=== PATIENT | female | born 1940 | race Caucasian/White ===

== ENCOUNTER → 2017-12-07 08:52 | Outpatient (CLI) | payer MEDICARE, OTHER, SELFPAY ==
--- NOTE | 2017-12-07 09:02 | HPBI_ITS ---
MAMMOGRAPHY - BILATERAL SCREENING REASON FOR EXAM: Female, 77 years old. Routine annual screening examination. PERTINENT HISTORY: Non-contributory. TECHNIQUE: Digital bilateral breast nancy (3D mammographic acquisition) in the CC and MLO projections. 2-D mediolateral oblique (MLO) and craniocaudad (CC) views of both breasts were obtained. CAD: Full Field Digital Mammography with Computer Added Detection was performed. COMPARISON: Comparison is made with prior examination dated December 06, 2016 and November 11, 2015. FINDINGS: Breast Composition: The breasts are heterogeneously dense, which may obscure small masses. There are no dominant masses or suspicious calcifications. No other significant abnormalities are identified. There has been no significant change since the prior study. HPBI/SCREENING MAMM (CAD), BILAT IMPRESSION: Stable bilateral screening mammogram. Yearly follow-up mammogram recommended. (A) ASSESSMENT CATEGORY: BIRADS Category 1: Negative. A letter regarding these results will be sent to the patient by the facility within 30 days. Approximately 10% of breast cancers are not detected by mammography. A normal mammogram should not delay biopsy of a clinically suspicious abnormality. [id number] Electronically Signed: Keenan Perez MD at 10:12 EST Tel [phone], Service support ,
== END ==
PROVIDERS: Family Provider Nurse Practitioner; PCP Nurse Practitioner; Visit Provider Nurse Practitioner
DX: Z12.31 Encounter for screening mammogram for malignant neoplasm of breast (principal)
CPT/HCPCS: 77063; 77067

== ENCOUNTER → 2018-12-11 10:17 | Outpatient (CLI) | payer MEDICARE, OTHER, SELFPAY ==
--- NOTE | 2018-12-11 10:21 | BI_ITS ---
MAMMOGRAPHY - BILATERAL SCREENING REASON FOR EXAM: Female, 78 years old. Routine annual screening examination. PERTINENT HISTORY: Non-contributory. TECHNIQUE: Digital bilateral breast nancy (3D mammographic acquisition) in the CC and MLO projections. 2-D mediolateral oblique (MLO) and craniocaudad (CC) views of both breasts were obtained. CAD: Full Field Digital Mammography with Computer Added Detection was performed. COMPARISON: Comparison is made with prior examination dated December 07, 2017 and December 06, 2016. FINDINGS: Breast Composition: The breasts are heterogeneously dense, which may obscure small masses. There are no dominant masses or suspicious calcifications. Stable asymmetry of breast tissue where more breast tissue is seen in the upper outer quadrant of the left breast as compared to the right side. No other significant abnormalities are identified. There has been no significant change since the prior study. BI/SCREENING MAMM (CAD), BILAT IMPRESSION: Stable bilateral screening mammogram. Yearly follow-up mammogram recommended. (A) ASSESSMENT CATEGORY: BIRADS Category 2: Benign. A letter regarding these results will be sent to the patient by the facility within 30 days. Approximately 10% of breast cancers are not detected by mammography. A normal mammogram should not delay biopsy of a clinically suspicious abnormality. [id number] Electronically Signed: Keenan Perez, at 13:13 EDT , Service support ,
--- NOTE | 2018-12-11 10:24 | BD_ITS ---
STUDY: DUAL ENERGY X-RAY ABSORPTIOMETRY / DXA REASON FOR EXAM: Female, 78 years old. Early menopause. Loss of height. TECHNIQUE: Bone Mineral Density (BMD) measurements of lumbar spine and bilateral hips were obtained. COMPARISON: Comparison is made with prior study of December 06, 2016. FINDINGS: Lumbar Spine (L1-L4): g/cm2 (0.950) / T-score (-1.8) / Z-score (-0.1) Findings are suggestive of osteopenia with a moderate fracture risk. Left Femur Total: g/cm2 (0.924) / T-score (-0.7) / Z-score (1.1) Left Femoral Neck: g/cm2 (0.815) / T-score (-1.6) / Z-score (0.4) Right Femur Total: g/cm2 (0.890) / T-score (-0.9) / Z-score (0.9) Right Femoral Neck: g/cm2 (0.759) / T-score (-2.0) / Z-score (0.0) The T-Scores on the most recent prior examination were: Lumbar Spine (L1-L4): There has been improvement of bone density since the previous examination. Left Femur Total: which represents a worsening of 0.9%. Right Femur Total: which represents a worsening of 0.9%. BD/Dexa Bone Density Study IMPRESSION: The patient is considered osteopenic as outlined below according to World Allan Organization (WHO) criteria with a moderate fracture risk. There has been worsening of bone density since the previous examination. Reference Information: The T-score is the number of standard deviations above or below the standard which is normal for young adults at their peak bone mineral density. The World Health Organization (WHO) interprets the T-scores as follows: Above -1 Normal bone density Between -1 and -2.5 Osteopenia Equal to / or below -2.5 Osteoporosis As a practical clinical guideline, osteopenia may be graded as follows: Mild -1 through -1.5 Moderate -1.6 through -2.0 Severe -2.1 through -2.4 The Z-score is the number of standard deviations above or below age-matched controls. A Z-score of less than -1.5 would be considered abnormal. References: 1. NIH Osteoporosis and Related Bone Diseases http://www.osteo.org 2. International Society for Clinical Densitometry http://www.iscd.org 3. National Osteoporosis Foundation http://www.nof.org Electronically Signed: Keenan Perez, at 15:50 EDT , Service support ,
== END ==
PROVIDERS: Family Provider Nurse Practitioner; PCP Nurse Practitioner; Referring Provider Nurse Practitioner; Visit Provider Nurse Practitioner
DX: Z78.0 Asymptomatic menopausal state (principal); Z12.31 Encounter for screening mammogram for malignant neoplasm of breast
CPT/HCPCS: 77063; 77067; 77080

== ENCOUNTER 2019-01-16 09:58 | Day surgery (SDC) | payer MEDICARE, OTHER, SELFPAY ==
[2019-01-16 10:18] VITALS: BP 133/46; PULSE 59; RESP 18; TEMP 36.7; O2SAT 96; BMI 40.1
[2019-01-16 10:35] LABS: Bedside Glucose 185 mg/dL (70-110)
--- NOTE | 2019-01-16 10:42 | HP.PCM_ITS ---
Problem List (1) Personal history of colonic polyps Status: Acute History of Present Illness Date of Admission: 01/16/19 The patient is a 78 year old F who presents with a personal history of colonic polyps. Her last colonoscopy was by Dr. Walls over 5 years ago. Has had no co mplaints in her bowel department. Past Medical History Allergies No Known Allergies Allergy (Verified 01/16/19 10:09) Home Medications: Ambulatory Orders Medication Instructions Recorded Albuterol IH (ProAir) [Proair Hfa 1 - 2 puff INHALATION Q6H PRN PRN 01/14/19 (SP)Vent Pts] Atenolol [Tenormin (Beta Gavino)] 50 mg PO BID 01/14/19 Budesonide/Formoterol 160/4.5 2 puff INHALATION BID 01/14/19 [Symbicort 160/4.5 Mcg Inhaler (SP)] Hydrochlorothiazide 25 mg PO DAILY 01/14/19 Insulin Glargine [Lantus (BKC)] 20 units SC QHS 01/14/19 Insulin NPH Human Isophane 25 unit SQ BID 01/14/19 [Novolin N] Insulin Regular, Human [Novolin R] 20 unit SC BID 01/14/19 Levothyroxine [Synthroid] 150 mcg PO DAILY 01/14/19 Lisinopril [Zestril] 20 mg PO DAILY 01/14/19 Multivitamin with Minerals 1 each PO DAILY 01/14/19 [Multiple Vitamin] Simvastatin [Zocor] 40 mg PO QHS 01/14/19 Vit C/E/Zn/Coppr/Lutein/Zeaxan 1 each PO BID 01/14/19 [Preservision Areds 2 Softgel] Smoking Status: Former smoker Tobacco Use: Non-smoker Review of Systems Constitutional: Denies: Chills, Fever, Weight Change Cardiovascular: Denies: Chest Pain, Chest Pressure, Chest Tightness, Palpi tations Respiratory: Denies: Cough, Hemoptysis, Shortness of breath at rest, Shortness of breath upon exertion, Wheezing Gastrointestinal: Denies: Abdominal Pain, Constipation, Diarrhea, Hematemesis, Nausea, Melena, Vomiting VTE Information - Inpt Only VTE Present on Admission: No VTE Mechan Device Prophylaxis: None VTE Pharm Prophylaxis ordered?: No Reason prophylaxis not ordered:: Treatment Not Indicated Patient Problems: Active and Suspected Problems Personal history of colonic polyps (Acute) - Physical Exam General: Alert, Oriented x3 Lungs: Clear to auscultation Cardiovascular: Regular rate, Regular Rhythm, No murmurs Abdomen: Bowel Sounds Present, Soft, Non Tender, Non-Distended Vital Signs Temp Pulse Resp BP Pulse Ox 98.1 F 59 L 18 133/46 H 96 01/16/19 10:18 01/16/19 10:18 01/16/19 10:18 01/16/19 10:18 01/16/19 10:18 Oxygen Delivery Method Room Air Weight: 212 lb 11.937 oz Body Mass Index (BMI) 40.1 POC Glucose 01/16/19 10:18 POC Glucose 185 H Assessment/Plan All Active Problems Personal history of colonic polyps (Acute) Plan is to perform a colonoscopy. Risk of bleeding and possible injury to the colon were reviewed with the patient she agrees to proceed
[2019-01-16 11:10] VITALS: BP 131/53; BP 133/46; PULSE 65; RESP 16; TEMP 36.9; O2SAT 95
--- NOTE | 2019-01-16 11:10 | OP.ENDO_ITS ---
01/16/2019 Munira Fox, MARY ANN [address] [place] [address] Re : Colonoscopy procedure for Callie Mayorga Dear Ms. Fox This procedure was performed on Wednesday, January 16, 2019. My impressions and recommendations are as follows: Impressions : - Diverticulosis in the sigmoid colon and in the descending colon. There was no evidence of diverticular bleeding. - Non-bleeding internal hemorrhoids. - The examination was otherwise normal. - No specimens collected. Recommendations : - Discharge patient to home. - Resume previous diet. - Continue present medications. - Repeat colonoscopy in 10 years for screening purposes. - Return to primary care physician at appointment to be scheduled. My findings are described in the full procedure note, which is enclosed. If I can be of further assistance, please feel free to contact me at Doctor phone number(s): , Fax: [phone], Work: . Sincerely, MD Lopez Camilo MD 01/16/2019 11:10:07 AM This report has been signed electronically.
[2019-01-16 11:15] VITALS: BP 133/46; BP 133/56; PULSE 66; RESP 16; O2SAT 93
[2019-01-16 11:20] VITALS: BP 133/46; BP 135/55; PULSE 66; RESP 16; O2SAT 95
[2019-01-16 11:26] VITALS: BP 133/46; BP 138/62; PULSE 63; RESP 16; TEMP 36.4; O2SAT 96
[2019-01-16 11:40] VITALS: BP 133/46
== END 2019-01-16 11:48 | disposition home or self-care (01) ==
LOC: EN 09:59 → AC 10:00
PROVIDERS: Family Provider Nurse Practitioner; PCP Nurse Practitioner; Referring Provider Surgery; Visit Provider Surgery
PROC: 0DJD8ZZ Inspection of Lower Intestinal Tract, Via Natural or Artificial Opening Endoscopic (ICD-10-PCS; CPT 45378; principal; 2019-01-16 10:55)
DX: Z12.11 Encounter for screening for malignant neoplasm of colon (principal); K57.30 Diverticulosis of large intestine without perforation or abscess without bleeding; K64.8 Other hemorrhoids; Z86.010 Personal history of colon polyps; Z79.899 Other long term (current) drug therapy; Z87.891 Personal history of nicotine dependence; E78.00 Pure hypercholesterolemia, unspecified; E11.9 Type 2 diabetes mellitus without complications; Z79.4 Long term (current) use of insulin; E07.9 Disorder of thyroid, unspecified; I10 Essential (primary) hypertension; J44.9 Chronic obstructive pulmonary disease, unspecified
CPT/HCPCS: G0105; 82962; J7120

== ENCOUNTER → 2020-07-10 09:53 | Outpatient (CLI) | payer MEDICARE, OTHER, SELFPAY ==
--- NOTE | 2020-07-10 09:55 | BI_ITS ---
MAMMOGRAPHY - BILATERAL SCREENING REASON FOR EXAM: Female, 79 years old. Routine annual screening examination. PERTINENT HISTORY: NO FM HX , PAST BRUISE UIN LT BREAST 03/2020 FROM FALL, LT KERATOSIS MARKED TECHNIQUE: Digital bilateral breast herve (3D mammographic acquisition) in the CC and MLO projections. 2-D mediolateral oblique (MLO) and craniocaudad (CC) views of both breasts were obtained. CAD: Full Field Digital Mammography with Computer Added Detection was performed. COMPARISON: 12/11/2018 and 12/07/2017 FINDINGS: Breast Composition: The breasts are heterogeneously dense, which may obscure small masses. There are no dominant masses or suspicious calcifications. No other significant abnormalities are identified. BI/SCREEN MAMM (CAD) W/HERVE BILAT IMPRESSION: Stable bilateral screening mammogram. Yearly follow-up mammogram recommended. (A) ASSESSMENT CATEGORY: BIRADS Category 2: Benign. A letter regarding these results will be sent to the patient by the facility within 30 days. Approximately 10% of breast cancers are not detected by mammography. A normal mammogram should not delay biopsy of a clinically suspicious abnormality. [id number] Electronically Signed: Charla Green, at 15:07 EDT Tel , Service support ,
== END ==
PROVIDERS: PCP Nurse Practitioner; Referring Provider Nurse Practitioner; Visit Provider Nurse Practitioner
DX: Z12.31 Encounter for screening mammogram for malignant neoplasm of breast (principal)
CPT/HCPCS: 77063; 77067

== ENCOUNTER 2020-08-19 12:10 | Inpatient (IN) | payer MEDICARE, OTHER, SELFPAY ==
[2020-08-19] VITALS (11 sets, daily range): BP systolic 121–149; BP diastolic 51–93; PULSE 60–90; RESP 18–25; TEMP 36.7–37.3; O2SAT 91–98; BMI 37.8; BMI 41.9
--- NOTE | 2020-08-19 12:35 | ED.VIS.GEN ---
History of Present Illness Chief Complaint: Nausea/Vomiting/Diarrhea Informant: Patient Narrative: Patient is a 80-year-old female with a past medical history of diabetes, COPD who presents to the emergency department for suspected coronavirus. She states that multiple family members have tested positive. Since Monday she has developed nausea/vomiting and diarrhea. She has had mild abdominal discomfort with this. She is had a mild headache. She denies any fevers or chills. No cough. She has been short of breath but denies chest pain. She is a former smoker. She has not been taking anything at home for this. She denies any recent traveling or antibiotic use. She states she is having too numerous to count episodes of vomiting and diarrhea each day. She feels like she is starting to get weak. Past Medical History - Allergies and Home Meds Allergies/Adverse Reactions: Allergies No Known Allergies Allergy (Verified 08/19/20 12:10) Past Medical History: - - COPD, DM Smoking Status: Former smoker Review of Systems All systems negative except as indicated General: Denies: Chills, Fever, Sweats Eyes: Denies: Visual changes - bilaterally, Diplopia ENT: Denies: Rhinorrhea, Sore throat Cardiovascular: Denies: Chest pain, Palpitations Respiratory: Reports: Dyspnea. Denies: Cough Gastrointestinal: Reports: Abdominal pain, Nausea, Vomiting, Diarrhea. Denies: Melena, Hematochezia Genitourinary: Denies: Dysuria, Hematuria, Frequency Musculoskeletal: Denies: Back pain, Extremity Pain Skin: Denies: Rash, Wounds Neurological: Reports: Headache, Weakness. Denies: Numbness Physical Exam Vital Signs/Narrative: Vital Signs Temp Pulse Resp BP Pulse Ox 08/19/20 12:10 98.0 F 90 20 H 122/56 H 91 General: Well nourished, Well developed, No Acute Distress Head: Normocephalic, Atraumatic Eyes: Perrl, EOMI ENT: Moist mucous membranes, No rhinorrhea Neck: Supple, Nontender Cardiovascular: Regular rate, Regular rhythm, No murmurs Respiratory: No distress, CTA bilaterally, Chest nontender Abdomen: Soft, Nondistended, Normal bowel sounds, Tender - Mild, diffuse. Negative for: Guarding, Rebound tenderness Back: Nontender, Normal Inspection Extremities: Nontender, No edema. Negative for: Calf Tenderness Skin: Normal color, No rash Neurological: Alert, Cranial nerves II-XII grossly intact, Normal Strength, Normal Sensation Psychological: Normal affect, Normal Mood Diagnostic/Tx/Re-eval Chest X-Ray - ED: - - Single view x-ray shows opacifications in the lower lobes bilaterally. Poor inspiratory effort. Normal cardiac silhouette. - Medical Decision Making Patient presents to the emergency department for nausea/vomiting diarrhea. She has known coronavirus exposure. It is likely positive and we will treat her as such. Will obtain the swab. Since the patient has a mildly low diastolic we will give a small bolus of IV fluids. We will check some basic lab work. We will give her dose of Zofran for symptomatic treatment. Patient's lab work did not reveal any significant acute abnormality. Unfortunately coronavirus did come back positive. She desaturated down to 88% for the nurses when ambulating back to the room. She has been started on supplemental oxygen by nasal cannula. Will bring her in for further evaluation and management. Will defer treatment to hospitalist. Patient updated on findings. She understands and is agreeable this plan. ED Disposition - Plan for ED Patient: Disposition: Acute Care Hospital [facility] Diagnosis: Pneumonia due to COVID-19 virus, Hypoxia, Nausea and vomiting, Diarrhea
[2020-08-19] MEDS: Ondansetron 4 MG/2 ML Vial IV (13:20)
[2020-08-19 13:40] LABS: Absolute Lymphocyte Count 1.06 X10^3/uL (0.83-4.51); Absolute Neutrophil Count 6.4 X10^3/uL (2.0-7.7); Basophil# 0.02 X10^3/uL; Basophil% 0.2 % (0-1); Hematocrit 44.5 % (37-47); Hemoglobin 14.3 g/dL (12.0-15.0); Lymphocyte # 1.06 X10^3/ul (4.0); Lymphocyte % 13.2 % (19-41); Mean Corp Hgb Conc 32.1 g/dL (32-36); Mean Corpuscular Hgb 31.3 pg (27.0-32.0); Mean Corpuscular Volume 97.4 fL (81-99); Mean Platelet Vol. 10.3 fl (6.2-12.0); Monocyte# 0.55 X10^3/uL; Monocyte% 6.8 % (0-10); NRBC Flagged by Analyzer 0 % (0-5); Neutrophil # 6.39 X10^3/uL (2.7-7.7); Neutrophil % 79.3 % (47-70); Platelet Count 159 K/mm3 (150-450); RBC Distribution Width CV 12.1 % (11.6-14.6); RBC Distribution Width SD 43.8 fl (35.1-43.9); Red Blood Count 4.57 M/mm3 (4.2-5.4); White Blood Count 8.1 K/mm3 (4.4-11.0)
[2020-08-19 13:56] LABS: Anion Gap 4 (5-15); BUN 20 mg/dL (7-18); Calcium,Total 8.8 mg/dL (8.5-10.1); Chloride 103 mmol/L (98-107); EST Glomerular Filtration Rate 57 mL/min (>60); Est Glom Filt Rate - Afr Amer 69 mL/min (>60); Estimated Creatinine Clearance 34.99 ml/min; Glucose 146 mg/dL (74-106); Potassium 4.2 mmol/L (3.5-5.1); Sodium Level 135 mmol/L (136-145)
[2020-08-19 15:40] LABS: Probe Check PASS; Specimen Processing Control PASS
--- NOTE | 2020-08-19 15:40 | RAD_ITS ---
STUDY: X-RAY CHEST REASON FOR EXAM: Female, 80 years old. Nausea, vomiting and diarrhea. Loss of taste and smell. TECHNIQUE: Single AP portable view of the chest. COMPARISON: 02/22/2017. FINDINGS: There is questionable infiltrates at the lung bases versus atelectatic change. The upper lungs are clear. There is no demonstrated pleural abnormality. Normal size heart. Normal mediastinum and jose. Normal visualized pulmonary arteries. There is atherosclerotic calcification of the aortic arch with tortuosity. The thoracic spine is obscured by the mediastinum. Normal visualized ribs, clavicles, and shoulders. There is no demonstrated abnormality of the visualized soft tissue structures of the upper abdomen. RAD/Chest 1 View (Portable) IMPRESSION: Infiltrate versus atelectasis at the lung bases. The remaining findings are unchanged Electronically Signed: Terrance Mcwilliams DO at 16:51 EST Tel [phone], Service support ,
--- NOTE | 2020-08-19 15:54 | HP.PCM_ITS ---
History of Present Illness Date of Admission: 08/19/20 Chief Complaint: nausea, vomiting, diarrhea The patient is a 80 year old F with a PMh as outlined who was admitted via the ED with a complaint of nausea, vomiting and diarrhea. She said symptoms had been going on for several days, and she had several family members who had tested positive. She denied any fever or chills, but admitted to mild shortness of breath, though she had no cough. Review of systems was otherwise negative. In the ED, vitals showed temp of 99.1F, BP of 149/93, RR of 18 and LA of 66. She was saturating at 98% on 2L of oxygen. Chemistry was unremarkable and initial troponin was negative. CBC was also unremarkable. CXR showed infiltrate vs atelectasis at the lung bases. She is being admitted to be managed for COVID 19 infection. [] Past Medical History Allergies No Known Allergies Allergy (Verified 08/19/20 12:10) Home Medications: Ambulatory Orders Medication Instructions Recorded Albuterol IH (ProAir) [Proair Hfa 1 - 2 puff INHALATION Q6H PRN PRN 01/14/19 (SP)Vent Pts] Atenolol [Tenormin (Beta Gavino)] 50 mg PO BID 01/14/19 Budesonide/Formoterol 160/4.5 2 puff INHALATION BID 01/14/19 [Symbicort 160/4.5 Mcg Inhaler (SP)] Insulin Glargine [Lantus (BKC)] 20 units SC QHS 01/14/19 Insulin NPH Human Isophane 25 unit SQ BID 01/14/19 [Novolin N] Insulin Regular, Human [Novolin R] 20 unit SC BID 01/14/19 Levothyroxine [Synthroid] 150 mcg PO DAILY 01/14/19 Lisinopril [Zestril] 20 mg PO DAILY 01/14/19 Multivitamin with Minerals 1 each PO DAILY 01/14/19 [Multiple Vitamin] Simvastatin [Zocor] 40 mg PO QHS 01/14/19 Vit C/E/Zn/Coppr/Lutein/Zeaxan 1 each PO BID 01/14/19 [Preservision Areds 2 Softgel] Hydrochlorothiazide [Hctz] 25 mg PO DAILY 08/19/20 Surgical History: no surgical history Psychiatric History: No pertinent psych hx 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 Denies: Chills, Fever, Weight Change Eyes: Denies: Blurred vision HEENT: Denies: Head Aches, Sinus Congestion, Sinus Drainage Cardiovascular: Denies: Chest Pain, Palpitations Respiratory: Reports: Shortness of Breath. Denies: Cough, Shortness of breath at rest, Shortness of breath upon exertion, Sputum production Gastrointestinal: Reports: Nausea, Vomiting. Denies: Abdominal Pain Genitourinary: Denies: Dysuria Musculoskeletal: Denies: Joint Pain, Joint Tenderness Skin: Denies: Rash, Wounds Neurological: Denies: Numbness, Tingling, Focal weakness Psychiatric: Denies: Anxiety, Depression, Homicidal Ideations, Suicidal Ideations Hematologic/ Lymphatic: Denies: Easy Bruising, Easy Bleeding VTE Information - Inpt Only VTE Present on Admission: No VTE Pharm Prophylaxis ordered?: Yes Patient Problems: Active and Suspected Problems Pneumonia due to COVID-19 virus (Acute) Hypoxia (Acute) Nausea and vomiting (Acute) Diarrhea (Acute) - Physical Exam Vitals/I&O's: Vital Signs Temp Pulse Resp BP Pulse Ox 98.0 F 69 18 131/51 H 92 08/19/20 12:10 08/19/20 14:10 08/19/20 14:10 08/19/20 14:10 08/19/20 14:10 Oxygen Flow Rate (L/min) 2 Oxygen Delivery Method Room Air Weight: 200 lb Body Mass Index (BMI) 37.8 Intake and Output for Last 24 Hours 08/17/20 08/18/20 08/19/20 23:59 23:59 23:59 Intake Total 500 / 500 Balance 500 / 500 General: Alert, Oriented x3, Cooperative, No apparent distress HEENT: Atraumatic, PERRLA, EOMI, Normocephalic Oral: Dry Mucosa Neck: Supple, No JVD, Negative Carotid Bruits Lungs: Clear to auscultation, Normal air movement, No rhonchi, No wheeze, No rales, - - on 2L of oxygen by nasal canula Cardiovascular: Regular rate, Regular Rhythm, Normal S1, Normal S2, No murmurs Abdomen: Bowel Sounds Present, Soft, Non Tender Extremities: No clubbing, No cyanosis, No edema, Capillary Refill Less than 3 Seconds Skin: No rashes, No breakdown Musculoskeletal: No Tenderness to Palpation of Joints or Extremities Lymphatic: No Cervical, Supraclavicular, or Inguinal Adenopathy Neurological: Cranial nerves II-XII grossly intact, Neuro grossly intact, Motor Exam 5/5 strength throughout Psych/Mental Status: Normal Affect, Appropriate, Alert and oriented to time, place, person, mood and affect Laboratory Results 08/19/20 13:06: COVID-19 (VIVIEN) Cancelled 08/19/20 13:06: COVID-19 ([facility]) Positive 08/19/20 13:21: WBC 8.1, RBC 4.57, Hgb 14.3, Hct 44.5, MCV 97.4, MCH 31.3, MCHC 32.1, RDW Std Deviation 43.8, RDW Coeff of Cynthia 12.1, Plt Count 159, MPV 10.3, Immature Gran % (Auto) 0.500, Neut % (Auto) 79.3 H, Lymph % (Auto) 13.2 L, Haywood % (Auto) 6.8, Eos % (Auto) 0.0, Baso % (Auto) 0.2, Absolute Neuts (auto) 6.4, Absolute Lymphs (auto) 1.06, Nucleated RBC % 0 08/19/20 13:21: Sodium 135 L, Potassium 4.2, Chloride 103, Carbon Dioxide 28.0, Anion Gap 4 L, BUN 20 H, Creatinine 1.00, Estim Creat Clear Calc 34.99, Est GFR (MDRD) Af Amer 69, Est GFR (MDRD) Non-Af 57 L, BUN/Creatinine Ratio 20.0, Glucose 146 H, Calcium 8.8, Troponin I < 0.015 Diagnostic Data Chest X-Ray 08/19/20 15:40 IMPRESSION: Infiltrate versus atelectasis at the lung bases. The remaining findings are unchanged Electronically Signed: Terrance Mcwilliams DO at 16:51 EST Tel [phone], Service support , Assessment/Plan All Active Problems Personal history of colonic polyps (Acute) Pneumonia due to COVID-19 virus (Acute) Hypoxia (Acute) Nausea and vomiting (Acute) Diarrhea (Acute) 80 y/o admitted with a complaint of nausea, vomiting and diarrhea and shortness of breath # Acute hypoxic respiratory insufficiency due to COVID 19 infection * admit to COVID unit * titrate oxygen to maintain sats>90% * IV decadrone 6mg daily * breathing treatment with bronchodilators * check urine for Strep and Legionella * # COVID 19 infection: as above. #Hypertension: on HCTZ and lisinopril as well as atenolol. # Type 2 diabetes mellitus: on insulin lantus 20IU qhs. ISS. Accuchecks ACHS. #Hyperlipidemia: on simvastatin #Hypothyroidism: on synthroid. DVT prophylaxis: lovenox Code status: undecided * I discussed code status with the patient, and discussed the differences between DNRCC, DNRCCA and full code. Patient could not decide which one she wanted to be, and wants time to think about it. Total time spent on code status discussion- 16 mins. Inpatient E&M: 68045 Init Hosp L3 Procedures: 82581 Advncd Care Plan 30 Min
[2020-08-19 19:10] LABS: Bedside Glucose 107 mg/dL (70-110)
[2020-08-19 20:45] LABS: D-Dimer Quantitative (DVT/PE) 1.55 FEU/ug/m (0.27-0.49)
[2020-08-19 20:50] LABS: Lactic Acid 1.1 mmol/L (0.4-1.9)
[2020-08-19] MEDS: Enoxaparin 40 MG/0.4 ML Syringe SC (20:56)
[2020-08-19 20:57] LABS: Procalcitonin 0.09 ng/mL (0.00-0.09)
[2020-08-19] MEDS: Atorvastatin Calcium 20 MG Tablet PO (20:57)
[2020-08-19] MEDS: Atenolol 50 MG Tablet PO (20:57)
[2020-08-19] MEDS: Multivitamin (Healthy Eyes) Capsule 1 CAP PO (20:57)
[2020-08-19 21:26] LABS: Bedside Glucose 175 mg/dL (70-110)
--- NOTE | 2020-08-19 22:23 | CT_ITS ---
STUDY: CTA CHEST REASON FOR EXAM: Female, 80 years old. Nausea and vomiting. Headache and shortness of breath. Weakness. Elevated d-dimer. COVID 19. RADIATION DOSAGE (If Supplied By Facility): CTDIvol = ( 11.59 ) mGy, DLP = ( 524.95 ) mGycm TECHNIQUE: The examination was performed with the intravenous administration of IV 100mL Isovue-370. Post-processing of the angiographic images was performed, with multiplanar reformation and 3D reconstruction. Individualized dose optimization techniques were used for this CT. COMPARISON: Chest, 08/19/2020 FINDINGS: Normal enhancement of the main pulmonary artery and right and left pulmonary arteries. Normal enhancement of the bilateral peripheral pulmonary arteries. There is no demonstrated pulmonary embolism. Atherosclerotic changes of the thoracic aorta without aneurysm. There is no demonstrated aortic dissection. Normal heart and pericardium. There are vascular and paratracheal lymph nodes. The largest measures 1 x 1.1 x 0.6 cm Normal hilar regions. Normal visualized trachea and bronchi. The lungs are well expanded. There is minimal groundglass infiltrates in the central upper lobes. There is patchy consolidation in the lateral lingula. Patchy consolidation is also seen in the right middle lobe. There is a 6 mm calcified granuloma in the left posterior costophrenic angle.. Normal pleura. Normal chest wall structures. There are degenerative changes of thoracic spine. Normal visualized upper abdomen. CT/CTA Chest W/WO Contrast IMPRESSION: 1. No evidence of pulmonary embolus. 2. No aortic dissection or aneurysm. 3. Consolidation and alveolar infiltrates in the lingula and right middle lobe. 4. Minimal patchy groundglass infiltrates in the upper lungs. 5. Small mediastinal lymph nodes. Electronically Signed: Terrance Mcwilliams DO at 23:41 EST Tel [phone], Service support ,
[2020-08-19] MEDS: Enoxaparin 60 MG/0.6 ML Syringe SC (23:27)
[2020-08-20] VITALS (13 sets, daily range): BP systolic 112–165; BP diastolic 51–69; PULSE 57–84; RESP 18–24; TEMP 36.6–37.2; O2SAT 92–97
[2020-08-20] MEDS: Insulin Lispro 100 UNIT/ML INSULN.PEN SC ×4 (06:25→22:57)
[2020-08-20 06:26] LABS: Bedside Glucose 300 mg/dL (70-110)
[2020-08-20 08:02] LABS: Absolute Lymphocyte Count 1.71 X10^3/uL (0.83-4.51); Absolute Neutrophil Count 3.7 X10^3/uL (2.0-7.7); Basophil# 0.02 X10^3/uL; Basophil% 0.3 % (0-1); Eosinophil# 0.01 X10^3/uL; Eosinophils% 0.2 % (0-5); Hematocrit 43.2 % (37-47); Hemoglobin 13.5 g/dL (12.0-15.0); Lymphocyte # 1.71 X10^3/ul (4.0); Mean Corp Hgb Conc 31.3 g/dL (32-36); Mean Corpuscular Hgb 31.5 pg (27.0-32.0); Mean Corpuscular Volume 100.7 fL (81-99); Mean Platelet Vol. 10.5 fl (6.2-12.0); Monocyte# 0.63 X10^3/uL; Monocyte% 10.3 % (0-10); NRBC Flagged by Analyzer 0 % (0-5); Neutrophil # 3.68 X10^3/uL (2.7-7.7); Neutrophil % 60.4 % (47-70); Platelet Count 182 K/mm3 (150-450); RBC Distribution Width CV 12.5 % (11.6-14.6); RBC Distribution Width SD 46.9 fl (35.1-43.9); Red Blood Count 4.29 M/mm3 (4.2-5.4); White Blood Count 6.1 K/mm3 (4.4-11.0)
[2020-08-20 08:35] LABS: D-Dimer Quantitative (DVT/PE) 1.48 FEU/ug/m (0.27-0.49)
[2020-08-20 08:44] LABS: ALB/GLOB Ratio 0.9 RATIO (0.9-2.4); AST(SGOT) 45 U/L (15-37); Alanine Aminotransfer ALT/SGPT 45 U/L (13-56); Albumin, Serum 3.2 g/dL (3.2-5.0); Alkaline Phosphatase 81 U/L (45-117); Anion Gap 7 (5-15); BUN 25 mg/dL (7-18); Calcium,Total 8.5 mg/dL (8.5-10.1); Chloride 101 mmol/L (98-107); Creatinine, Serum 1.04 mg/dL (0.55-1.02); EST Glomerular Filtration Rate 55 mL/min (>60); Est Glom Filt Rate - Afr Amer 66 mL/min (>60); Estimated Creatinine Clearance 33.64 ml/min; Globulin 3.5 g/dL (2.2-4.2); Glucose 299 mg/dL (74-106); Magnesium 2.2 mg/dL (1.6-2.6); Potassium 4.2 mmol/L (3.5-5.1); Protein, Total 6.7 g/dL (6.4-8.2); Sodium Level 134 mmol/L (136-145)
[2020-08-20] MEDS: Enoxaparin 40 MG/0.4 ML Syringe SC ×2 (09:29→22:56)
[2020-08-20] MEDS: Multivitamins,Ther W-Minerals Tablet 1 TABLET PO (09:30)
[2020-08-20] MEDS: Lisinopril 20 MG Tablet PO (09:30)
[2020-08-20] MEDS: Multivitamin (Healthy Eyes) Capsule 1 CAP PO (09:30)
[2020-08-20] MEDS: hydroCHLOROthiazide 25 MG Tablet PO (09:30)
[2020-08-20] MEDS: Atenolol 50 MG Tablet PO ×2 (09:30→22:56)
[2020-08-20] MEDS: Levothyroxine 150 MCG Tablet PO (09:30)
[2020-08-20] MEDS: dexAMETHasone 10 MG/ML Vial 6 MG IV (09:31)
--- NOTE | 2020-08-20 10:36 | CASEMGMT ---
RADHA MARSH assessment: Phone interview with patient for initial transition planning/care coordination assessment as pt is COVID +. RADHA MARSH introduced self and role at [facility], pt voices understanding and consents to assessment at this time. Pt is A/Ox4 at this time and answers all questions appropriately at this time. Pt currently on 2liters nc at this time and speaks in full sentences, no SOB noted. Pt states has family for resources/supplies. Pt states has no symptoms at this time. Care providers, pharmacy, and demographics verified at this time. Presentation: N/V/D, loss taste/smell Admitting dx: COVID 19 infection PCP: Dominique Specialists: Pt states no current specialists at this time. Preferred Pharmacy: [facility] [place]-pt is ok with [facility] retail pharmacy for this visit d/t COVID. Insurance: MCR A/B, AARP Prescription Benefit: [facility] Living Will/HPOA: Pt states does not have LW/HPOA but is interested in AD info at this time to take home and discuss with daughter. Pta SW aware, voices understanding. LNOK: Deanna Mayorga, daughter; Moises Mayorga, -pt states to call daughter with any concerns and plans to make her HPOA. Living Arrangements: Pt states lives with in 1 story home with laundry and states no concerns at home at this time. Pt states is independent with ADL's. Transportation: Pt states drives self and states no transportation concerns at this time. DME/HHC: Pt states no current DME or need for any at this time. Pt states she would prefer [facility], if qualifies for home oxygen at discharge. Pt states no hx of HHC or SNF in the past. Pt is currently SBA in room at this time. Pt states no concerns with going home at time of discharge. Pt states is retired. Pt states does not smoke cigarettes but does drink ETOH occasionally. Pt states no further concerns/needs at this time. CM to follow for home oxygen and any further discharge planning/needs. Advised pt to ask for CM if any further questions/concerns/needs arise, voices understanding. Pt Goal: Home Plan: Home, pending home oxygen qualification. [place] RADHA MARSH
--- NOTE | 2020-08-20 11:19 | PN_ITS ---
Patient Problems: Active and Suspected Problems Pneumonia due to COVID-19 virus (Acute) Hypoxia (Acute) Nausea and vomiting (Acute) Diarrhea (Acute) Subjective: Patient was seen and examined today, she is on nasal cannula oxygen at a low flow rate, patient does not complain of any shortness of breath, chest discomfort, fever, or chills. - Physical Exam Vitals/I&O's: Vital Signs Temp Pulse Resp BP Pulse Ox 98.6 F 63 20 H 112/61 94 08/20/20 09:26 08/20/20 09:26 08/20/20 09:26 08/20/20 09:26 08/20/20 09:26 Oxygen Flow Rate (L/min) 2 Oxygen Delivery Method Nasal Cannula Weight: 100.698 kg Body Mass Index (BMI) 41.9 Intake and Output for Last 24 Hours 08/18/20 08/19/20 08/20/20 23:59 23:59 23:59 Intake Total 500 / 500 740 / 740 Output Total 250 / 250 Balance 500 / 500 490 / 490 General: Alert, Oriented x3, Cooperative, No apparent distress, Well developed, Well nourished HEENT: Atraumatic, PERRLA, EOMI, Normocephalic Oral: Moist Mucosa Neck: Supple, No JVD, Trachea Midline, Thyroid Normal Size and Texture Lungs: Clear to auscultation, Normal air movement, No rhonchi, No wheeze, No rales Cardiovascular: Regular rate, Regular Rhythm, Normal S1, Normal S2, No murmurs, PMI Normal, No rub noted, No Gallop Abdomen: Bowel Sounds Present, Soft, Non Tender, Non-Distended, No hernias noted Extremities: No clubbing, No cyanosis, No edema, Capillary Refill Less than 3 Seconds Skin: No rashes, No breakdown Musculoskeletal: No Tenderness to Palpation of Joints or Extremities Neurological: Cranial nerves II-XII grossly intact, Neuro grossly intact, Sensory exam intact to light touch and pain, Coordination normal Psych/Mental Status: Normal Affect, Appropriate, Alert and oriented to time, place, person, mood and affect Microbiology Past 72 Hours 08/20/20 02:21 Interface Orders Legionella Antigen - Final 08/20/20 02:21 Interface Orders Streptococcus pneumoniae Antigen (M - Final Laboratory Results 08/19/20 13:06: COVID-19 (VIVIEN) Cancelled 08/19/20 13:06: COVID-19 (VIVIEN) Positive 08/19/20 13:21: WBC 8.1, RBC 4.57, Hgb 14.3, Hct 44.5, MCV 97.4, MCH 31.3, MCHC 32.1, RDW Std Deviation 43.8, RDW Coeff of Cynthia 12.1, Plt Count 159, MPV 10.3, Immature Gran % (Auto) 0.500, Neut % (Auto) 79.3 H, Lymph % (Auto) 13.2 L, [place] % (Auto) 6.8, Eos % (Auto) 0.0, Baso % (Auto) 0.2, Absolute Neuts (auto) 6.4, Absolute Lymphs (auto) 1.06, Nucleated RBC % 0 08/19/20 13:21: Sodium 135 L, Potassium 4.2, Chloride 103, Carbon Dioxide 28.0, Anion Gap 4 L, BUN 20 H, Creatinine 1.00, Estim Creat Clear Calc 34.99, Est GFR (MDRD) Af Amer 69, Est GFR (MDRD) Non-Af 57 L, BUN/Creatinine Ratio 20.0, Glucose 146 H, Calcium 8.8, Troponin I < 0.015 08/19/20 18:50: POC Glucose 107 08/19/20 20:01: D-Dimer Quant (PE/DVT) 1.55 H* 08/19/20 20:01: Lactic Acid 1.1 08/19/20 20:01: Procalcitonin 0.09 08/19/20 20:49: POC Glucose 175 H 08/20/20 06:18: POC Glucose 300 H 08/20/20 07:00: Sodium 134 L, Potassium 4.2, Chloride 101, Carbon Dioxide 26.0, Anion Gap 7, BUN 25 H, Creatinine 1.04 H, Estim Creat Clear Calc 33.64, Est GFR (MDRD) Af Amer 66, Est GFR (MDRD) Non-Af 55 L, BUN/Creatinine Ratio 24.0 H, Glucose 299 H, Calcium 8.5, Magnesium 2.2, Total Bilirubin 0.40, AST 45 H, ALT 45, Alkaline Phosphatase 81, Total Protein 6.7, Albumin 3.2, Globulin 3.5, Albumin/Globulin Ratio 0.9 08/20/20 07:00: WBC 6.1, RBC 4.29, Hgb 13.5, Hct 43.2, MCV 100.7 H, MCH 31.5, MCHC 31.3 L, RDW Std Deviation 46.9 H, RDW Coeff of Cynthia 12.5, Plt Count 182, MPV 10.5, Immature Gran % (Auto) 0.800, Neut % (Auto) 60.4, Lymph % (Auto) 28.0, [place] % (Auto) 10.3 H, Eos % (Auto) 0.2, Baso % (Auto) 0.3, Absolute Neuts (auto) 3.7, Absolute Lymphs (auto) 1.71, Nucleated RBC % 0 08/20/20 07:00: D-Dimer Quant (PE/DVT) 1.48 H* Current Medications Acetaminophen (Acetaminophen 325 Mg Tablet) 650 mg PO Q4H PRN PRN PRN Reason: Pain Score 1-3 /Temp>100.7 Atenolol (Atenolol 50 Mg Tablet) 50 mg PO BID [facility] Last Admin: 08/20/20 09:30 Dose: 50 mg Documented by: Atorvastatin Calcium (Atorvastatin Calcium 20 Mg Tablet) 20 mg PO QHS [facility] Last Admin: 08/19/20 20:57 Dose: 20 mg Documented by: Dexamethasone (Dexamethasone 4 Mg Tablet) 6 mg PO DAILY [facility] Stop: 08/29/20 10:01 Enoxaparin Sodium (Enoxaparin 40 Mg/0.4 Ml Syringe) 40 mg SC BID [facility] Last Admin: 08/20/20 09:29 Dose: 40 mg Documented by: Hydrochlorothiazide (Hydrochlorothiazide 25 Mg Tablet) 25 mg PO DAILY [facility] Last Admin: 08/20/20 09:30 Dose: 25 mg Documented by: Remdesivir 100 mg/ Sodium (Chloride) 250 mls @ 125 mls/hr IV DAILY [facility]; Protocol Stop: 08/24/20 11:59 Remdesivir 200 mg/ Sodium (Chloride) 250 mls @ 125 mls/hr IV X1 ONE; Protocol Stop: 08/20/20 11:59 Insulin Glargine (Insulin Glargine 100 Units/Ml Pen) 20 units SC QHS [facility] Last Admin: 08/19/20 20:57 Dose: 20 u Documented by: Insulin Human Lispro (Insulin Lispro 100 Unit/Ml Insuln.Pen) 0 unit SC ACHS [facility]; Protocol Last Admin: 08/20/20 06:25 Dose: 4 u Documented by: Levothyroxine Sodium (Levothyroxine 150 Mcg Tablet) 150 mcg PO DAILY [facility] Last Admin: 08/20/20 09:30 Dose: 150 mcg Documented by: Lisinopril (Lisinopril 20 Mg Tablet) 20 mg PO DAILY [facility] Last Admin: 08/20/20 09:30 Dose: 20 mg Documented by: Ondansetron HCl (Ondansetron 4 Mg/2 Ml Vial) 4 mg IV Q8H PRN PRN PRN Reason: NAUSEA/VOMITING Oxycodone HCl (Oxycodone 5 Mg Tablet) 5 mg PO Q4H PRN PRN PRN Reason: Pain Score 4-5 Sodium Chloride (0.9% Saline Lock 10 Ml Syringe) 10 - 40 ml IV UD PRN PRN Reason: SALINE FLUSH Medical Necessity - Tobacco Use Smoking Status: Former smoker Assessment/Plan All Active Problems Pneumonia due to COVID-19 virus (Acute) Hypoxia (Acute) Nausea and vomiting (Acute) Diarrhea (Acute) #1 COVID-19 pneumonia-infectious diseases is seeing patient #2 hypoxia secondary to #1-pulse ox will be monitored #3 type 2 diabetes-blood sugars will be monitored, sliding scale insulin will be used #4 hyperlipidemia #5 COPD #6 essential hypertension Inpatient E&M: 04581 [facility] L2
[2020-08-20] MEDS: dexAMETHasone 4 MG Tablet 6 MG PO (11:24)
[2020-08-20 11:45] LABS: Bedside Glucose 350 mg/dL (70-110)
--- NOTE | 2020-08-20 13:00 | CON.PCM_ITS ---
Problem List (1) Pneumonia due to COVID-19 virus Status: Acute Reason for Consult: covid Consulted by: Dr. Tan History of Present Illness: The patient is a 80 year old F presented with sx since 08/12 of primarily n/v/d, mild dyspnea and cough. Lives with who is feeling fine but not been tested. Kids have been sick with covid. No fever, no sputum, no aches, no change in taste or smell. Full ROS performed and neg except as noted above. - Medical History Surgical History: reviewed Allergies/Adverse Reactions: Allergies No Known Allergies Allergy (Verified 08/19/20 12:10) Home Medications: Ambulatory Orders Medication Instructions Recorded Albuterol IH (ProAir) [Proair Hfa 1 - 2 puff INHALATION Q6H PRN PRN 01/14/19 (SP)Vent Pts] Atenolol [Tenormin (Beta Gavino)] 50 mg PO BID 01/14/19 Budesonide/Formoterol 160/4.5 2 puff INHALATION BID 01/14/19 [Symbicort 160/4.5 Mcg Inhaler (SP)] Insulin Glargine [Lantus (BKC)] 20 units SC QHS 01/14/19 Insulin NPH Human Isophane 25 unit SQ BID 01/14/19 [Novolin N] Insulin Regular, Human [Novolin R] 20 unit SC BID 01/14/19 Levothyroxine [Synthroid] 150 mcg PO DAILY 01/14/19 Lisinopril [Zestril] 20 mg PO DAILY 01/14/19 Multivitamin with Minerals 1 each PO DAILY 01/14/19 [Multiple Vitamin] Simvastatin [Zocor] 40 mg PO QHS 01/14/19 Vit C/E/Zn/Coppr/Lutein/Zeaxan 1 each PO BID 01/14/19 [Preservision Areds 2 Softgel] Hydrochlorothiazide [Hctz] 25 mg PO DAILY 08/19/20 - Social History SMOKING STATUS:: Former smoker Vital Signs Temp Pulse Resp BP Pulse Ox 98.6 F 61 20 H 112/61 94 08/20/20 09:26 08/20/20 10:00 08/20/20 09:26 08/20/20 09:26 08/20/20 09:26 Oxygen Flow Rate (L/min) 2 Oxygen Delivery Method Nasal Cannula Weight: 100.698 kg Body Mass Index (BMI) 41.9 Microbiology Past 72 Hours 08/20/20 02:21 Legionella Antigen - Final Interface Orders Streptococcus pneumoniae Antigen (M - Final Laboratory Tests Past 24 Hrs 08/19/20 08/19/20 08/19/20 13:06 13:06 13:21 WBC 8.1 RBC 4.57 Hgb 14.3 Hct 44.5 MCV 97.4 MCH 31.3 MCHC 32.1 RDW Std Deviation 43.8 RDW Coeff of Cynthia 12.1 Plt Count 159 MPV 10.3 Immature Gran % (Auto) 0.500 Neut % (Auto) 79.3 H Lymph % (Auto) 13.2 L [place] % (Auto) 6.8 Eos % (Auto) 0.0 Baso % (Auto) 0.2 Absolute Neuts (auto) 6.4 Absolute Lymphs (auto) 1.06 Nucleated RBC % 0 D-Dimer Quant (PE/DVT) Sodium Potassium Chloride Carbon Dioxide Anion Gap BUN Creatinine Estim Creat Clear Calc Est GFR (MDRD) Af Amer Est GFR (MDRD) Non-Af BUN/Creatinine Ratio Glucose Lactic Acid Calcium Magnesium Total Bilirubin AST ALT Alkaline Phosphatase Troponin I Total Protein Albumin Globulin Albumin/Globulin Ratio Procalcitonin COVID-19 ([facility]) Cancelled Positive 08/19/20 08/19/20 08/19/20 13:21 20:01 20:01 WBC RBC Hgb Hct MCV MCH MCHC RDW Std Deviation RDW Coeff of Cynthia Plt Count MPV Immature Gran % (Auto) Neut % (Auto) Lymph % (Auto) [place] % (Auto) Eos % (Auto) Baso % (Auto) Absolute Neuts (auto) Absolute Lymphs (auto) Nucleated RBC % D-Dimer Quant (PE/DVT) 1.55 H* Sodium 135 L Potassium 4.2 Chloride 103 Carbon Dioxide 28.0 Anion Gap 4 L BUN 20 H Creatinine 1.00 Estim Creat Clear Calc 34.99 Est GFR (MDRD) Af Amer 69 Est GFR (MDRD) Non-Af 57 L BUN/Creatinine Ratio 20.0 Glucose 146 H Lactic Acid 1.1 Calcium 8.8 Magnesium Total Bilirubin AST ALT Alkaline Phosphatase Troponin I < 0.015 Total Protein Albumin Globulin Albumin/Globulin Ratio Procalcitonin COVID-19 (VIVIEN) 08/19/20 08/20/20 08/20/20 20:01 07:00 07:00 WBC 6.1 RBC 4.29 Hgb 13.5 Hct 43.2 MCV 100.7 H MCH 31.5 MCHC 31.3 L RDW Std Deviation 46.9 H RDW Coeff of Cynthia 12.5 Plt Count 182 MPV 10.5 Immature Gran % (Auto) 0.800 Neut % (Auto) 60.4 Lymph % (Auto) 28.0 [place] % (Auto) 10.3 H Eos % (Auto) 0.2 Baso % (Auto) 0.3 Absolute Neuts (auto) 3.7 Absolute Lymphs (auto) 1.71 Nucleated RBC % 0 D-Dimer Quant (PE/DVT) Sodium 134 L Potassium 4.2 Chloride 101 Carbon Dioxide 26.0 Anion Gap 7 BUN 25 H Creatinine 1.04 H Estim Creat Clear Calc 33.64 Est GFR (MDRD) Af Amer 66 Est GFR (MDRD) Non-Af 55 L BUN/Creatinine Ratio 24.0 H Glucose 299 H Lactic Acid Calcium 8.5 Magnesium 2.2 Total Bilirubin 0.40 AST 45 H ALT 45 Alkaline Phosphatase 81 Troponin I Total Protein 6.7 Albumin 3.2 Globulin 3.5 Albumin/Globulin Ratio 0.9 Procalcitonin 0.09 COVID-19 (VIVIEN) 08/20/20 07:00 WBC RBC Hgb Hct MCV MCH MCHC RDW Std Deviation RDW Coeff of Cynthia Plt Count MPV Immature Gran % (Auto) Neut % (Auto) Lymph % (Auto) [place] % (Auto) Eos % (Auto) Baso % (Auto) Absolute Neuts (auto) Absolute Lymphs (auto) Nucleated RBC % D-Dimer Quant (PE/DVT) 1.48 H* Sodium Potassium Chloride Carbon Dioxide Anion Gap BUN Creatinine Estim Creat Clear Calc Est GFR (MDRD) Af Amer Est GFR (MDRD) Non-Af BUN/Creatinine Ratio Glucose Lactic Acid Calcium Magnesium Total Bilirubin AST ALT Alkaline Phosphatase Troponin I Total Protein Albumin Globulin Albumin/Globulin Ratio Procalcitonin COVID-19 (VIVIEN) - Other Studies Radiology: [] reviewed Other Studies: [] Route of nutrition/ use of supplements: [] Nutritional Intake: [] IV Site: [] Silver Catheter: [] - Physical Exam General: Alert, Oriented x3, Cooperative HEENT: Atraumatic, PERRLA, EOMI Neck: Supple, No Nodes Lungs: Clear to auscultation, Diminished Cardiovascular: Regular rate, Regular Rhythm Abdomen: Soft, Non Tender, Non-Distended Extremities: No edema Skin: No rashes IV Site: Peripheral, without redness Musculoskeletal: No Tenderness to Palpation of Joints or Extremities Neurological: Cranial nerves II-XII grossly intact - Assessment/Plan Antibiotics: [] Assessment/Plan: [] Active and Suspected Problems Pneumonia due to COVID-19 virus (Acute) Hypoxia (Acute) Nausea and vomiting (Acute) Diarrhea (Acute) covid with hypoxia - CT neg for PE. Sx started 08/12. Will start dex and remdesivir. On lovenox 40mg bid. D-dimer was 1.5. UAg neg. Will follow, thank you
[2020-08-20] MEDS: Albuterol Sulfate 8 gm Inhaler (60 puffs) 2 PUFF INHALATION ×2 (17:12→22:58)
[2020-08-20] MEDS: Atorvastatin Calcium 20 MG Tablet PO (22:56)
[2020-08-20 23:10] LABS: Bedside Glucose 432 mg/dL (70-110)
[2020-08-20 23:30] LABS: Bedside Glucose 468 mg/dL (70-110)
[2020-08-21] VITALS (12 sets, daily range): BP systolic 114–144; BP diastolic 54–82; PULSE 49–67; RESP 18–24; TEMP 36.5–36.9; O2SAT 85–95
[2020-08-21] MEDS: Insulin Lispro 100 UNIT/ML INSULN.PEN SC ×3 (06:43→17:13)
[2020-08-21 06:55] LABS: Bedside Glucose 408 mg/dL (70-110)
[2020-08-21 07:27] LABS: Absolute Lymphocyte Count 1.19 X10^3/uL (0.83-4.51); Absolute Neutrophil Count 4.5 X10^3/uL (2.0-7.7); Basophil# 0.02 X10^3/uL; Basophil% 0.3 % (0-1); Hematocrit 42.6 % (37-47); Hemoglobin 13.9 g/dL (12.0-15.0); Lymphocyte # 1.19 X10^3/ul (4.0); Lymphocyte % 18.8 % (19-41); Mean Corp Hgb Conc 32.6 g/dL (32-36); Mean Corpuscular Hgb 32.1 pg (27.0-32.0); Mean Corpuscular Volume 98.4 fL (81-99); Mean Platelet Vol. 10.1 fl (6.2-12.0); Monocyte% 9.5 % (0-10); NRBC Flagged by Analyzer 0 % (0-5); Neutrophil # 4.48 X10^3/uL (2.7-7.7); Neutrophil % 70.8 % (47-70); Platelet Count 190 K/mm3 (150-450); RBC Distribution Width CV 11.9 % (11.6-14.6); RBC Distribution Width SD 43.1 fl (35.1-43.9); Red Blood Count 4.33 M/mm3 (4.2-5.4); White Blood Count 6.3 K/mm3 (4.4-11.0)
--- NOTE | 2020-08-21 07:56 | PCM.PROGNOTE ---
Patient Problems: Active and Suspected Problems Pneumonia due to COVID-19 virus (Acute) Hypoxia (Acute) Nausea and vomiting (Acute) Diarrhea (Acute) Subjective: Patient was seen and examined today, she is sitting in a chair and does not appear to be dyspneic, she is only on 1 L of oxygen at the present time, she is afebrile this morning. Patient does not complain of any increased shortness of breath, chest pain, fever, or chills. Objective: General: Alert, Oriented x3, Cooperative, No apparent distress, Well developed, Well nourished HEENT: Atraumatic, PERRLA, EOMI, Normocephalic Oral: Moist Mucosa Neck: Supple, No JVD, Trachea Midline, Thyroid Normal Size and Texture Lungs: Clear to auscultation, Normal air movement, No rhonchi, No wheeze, No rales Cardiovascular: Regular rate, Regular Rhythm, Normal S1, Normal S2, No murmurs, PMI Normal, No rub noted, No Gallop Abdomen: Bowel Sounds Present, Soft, Non Tender, Non-Distended, No hernias noted Extremities: No clubbing, No cyanosis, No edema, Capillary Refill Less than 3 Seconds Skin: No rashes, No breakdown Musculoskeletal: No Tenderness to Palpation of Joints or Extremities Neurological: Cranial nerves II-XII grossly intact, Neuro grossly intact, Sensory exam intact to light touch and pain, Coordination normal Psych/Mental Status: Normal Affect, Appropriate, Alert and oriented to time, place, person, mood and affect - Physical Exam Vitals/I&O's: Vital Signs Temp Pulse Resp BP Pulse Ox 98.4 F 67 18 139/54 H 95 08/21/20 04:17 08/21/20 04:25 08/21/20 04:17 08/21/20 04:17 08/21/20 04:17 Oxygen Flow Rate (L/min) 1 Oxygen Delivery Method Nasal Cannula Weight: 100.69 kg Body Mass Index (BMI) 41.9 Intake and Output for Last 24 Hours 08/19/20 08/20/20 08/21/20 23:59 23:59 23:59 Intake Total 500 / 500 2440 / 2440 100 / 100 Output Total 650 / 650 200 / 200 Balance 500 / 500 1790 / 1790 -100 / -100 Microbiology Past 72 Hours 08/20/20 02:21 Interface Orders Legionella Antigen - Final 08/20/20 02:21 Interface Orders Streptococcus pneumoniae Antigen (M - Final Laboratory Results 08/19/20 20:00: Blood Type O POSITIVE 08/20/20 07:00: Sodium 134 L, Potassium 4.2, Chloride 101, Carbon Dioxide 26.0, Anion Gap 7, BUN 25 H, Creatinine 1.04 H, Estim Creat Clear Calc 33.64, Est GFR (MDRD) Af Amer 66, Est GFR (MDRD) Non-Af 55 L, BUN/Creatinine Ratio 24.0 H, Glucose 299 H, Calcium 8.5, Magnesium 2.2, Total Bilirubin 0.40, AST 45 H, ALT 45, Alkaline Phosphatase 81, Total Protein 6.7, Albumin 3.2, Globulin 3.5, Albumin/Globulin Ratio 0.9 08/20/20 07:00: WBC 6.1, RBC 4.29, Hgb 13.5, Hct 43.2, MCV 100.7 H, MCH 31.5, MCHC 31.3 L, RDW Std Deviation 46.9 H, RDW Coeff of Cynthia 12.5, Plt Count 182, MPV 10.5, Immature Gran % (Auto) 0.800, Neut % (Auto) 60.4, Lymph % (Auto) 28.0, [place] % (Auto) 10.3 H, Eos % (Auto) 0.2, Baso % (Auto) 0.3, Absolute Neuts (auto) 3.7, Absolute Lymphs (auto) 1.71, Nucleated RBC % 0 08/20/20 07:00: D-Dimer Quant (PE/DVT) 1.48 H* 08/20/20 11:20: POC Glucose 350 H 08/20/20 17:09: POC Glucose 432 H 08/20/20 22:54: POC Glucose 468 H* 08/21/20 06:43: POC Glucose 408 H 08/21/20 06:44: WBC 6.3, RBC 4.33, Hgb 13.9, Hct 42.6, MCV 98.4, MCH 32.1 H, MCHC 32.6, RDW Std Deviation 43.1, RDW Coeff of Cynthia 11.9, Plt Count 190, MPV 10.1, Immature Gran % (Auto) 0.600, Neut % (Auto) 70.8 H, Lymph % (Auto) 18.8 L, [place] % (Auto) 9.5, Eos % (Auto) 0.0, Baso % (Auto) 0.3, Absolute Neuts (auto) 4.5, Absolute Lymphs (auto) 1.19, Nucleated RBC % 0 08/21/20 06:44: Sodium Pending, Potassium Pending, Chloride Pending, Carbon Dioxide Pending, Anion Gap Pending, BUN Pending, Creatinine Pending, Est GFR (MDRD) Af Amer Pending, Est GFR (MDRD) Non-Af Pending, BUN/Creatinine Ratio Pending, Glucose Pending, Calcium Pending, Total Bilirubin Pending, AST Pending, ALT Pending, Alkaline Phosphatase Pending, Total Protein Pending, Albumin Pending Current Medications Acetaminophen (Acetaminophen 325 Mg Tablet) 650 mg PO Q4H PRN PRN PRN Reason: Pain Score 1-3 /Temp>100.7 Albuterol Sulfate (Albuterol Sulfate 8 Gm Inhaler (60 Puffs)) 2 puff INHALATION 4X/DAY [facility] Last Admin: 08/20/20 22:58 Dose: 2 puff Documented by: Atenolol (Atenolol 50 Mg Tablet) 50 mg PO BID [facility] Last Admin: 08/20/20 22:56 Dose: 50 mg Documented by: Atorvastatin Calcium (Atorvastatin Calcium 20 Mg Tablet) 20 mg PO QHS [facility] Last Admin: 08/20/20 22:56 Dose: 20 mg Documented by: Dexamethasone (Dexamethasone 4 Mg Tablet) 6 mg PO DAILY [facility] Stop: 08/29/20 10:01 Last Admin: 08/20/20 11:24 Dose: 6 mg Documented by: Enoxaparin Sodium (Enoxaparin 40 Mg/0.4 Ml Syringe) 40 mg SC BID [facility] Last Admin: 08/20/20 22:56 Dose: 40 mg Documented by: Hydrochlorothiazide (Hydrochlorothiazide 25 Mg Tablet) 25 mg PO DAILY [facility] Last Admin: 08/20/20 09:30 Dose: 25 mg Documented by: Remdesivir 100 mg/ Sodium (Chloride) 250 mls @ 125 mls/hr IV DAILY [facility]; Protocol Stop: 08/24/20 11:59 Insulin Glargine (Insulin Glargine 100 Units/Ml Pen) 35 units SC QHS [facility] Last Admin: 08/20/20 22:56 Dose: 35 u Documented by: Insulin Human Lispro (Insulin Lispro 100 Unit/Ml Insuln.Pen) 0 unit SC ACHS [facility]; Protocol Last Admin: 08/21/20 06:43 Dose: 14 u Documented by: Levothyroxine Sodium (Levothyroxine 150 Mcg Tablet) 150 mcg PO DAILY [facility] Last Admin: 08/20/20 09:30 Dose: 150 mcg Documented by: Lisinopril (Lisinopril 20 Mg Tablet) 20 mg PO DAILY [facility] Last Admin: 08/20/20 09:30 Dose: 20 mg Documented by: Ondansetron HCl (Ondansetron 4 Mg/2 Ml Vial) 4 mg IV Q8H PRN PRN PRN Reason: NAUSEA/VOMITING Oxycodone HCl (Oxycodone 5 Mg Tablet) 5 mg PO Q4H PRN PRN PRN Reason: Pain Score 4-5 Sodium Chloride (0.9% Saline Lock 10 Ml Syringe) 10 - 40 ml IV UD PRN PRN Reason: SALINE FLUSH Medical Necessity - Tobacco Use Smoking Status: Former smoker Assessment/Plan All Active Problems Pneumonia due to COVID-19 virus (Acute) Hypoxia (Acute) Nausea and vomiting (Acute) Diarrhea (Acute) #1 COVID-19 pneumonia-infectious diseases is seeing patient, she is on dexamethasone and remdesivir #2 hypoxia secondary to #1-pulse ox will be monitored, patient is on low-flow oxygen at this time and it may be possible to wean her off oxygen today. #3 type 2 diabetes-blood sugars will be monitored, sliding scale insulin will be used, patient's blood sugars have been high and I increased her insulin yesterday. I will start her on a split dose of basal insulin today. #4 hyperlipidemia #5 COPD #6 essential hypertension Inpatient E&M: 66020 [facility] Hosp L2
[2020-08-21 07:57] LABS: ALB/GLOB Ratio 0.8 RATIO (0.9-2.4); AST(SGOT) 39 U/L (15-37); Alanine Aminotransfer ALT/SGPT 45 U/L (13-56); Albumin, Serum 3.1 g/dL (3.2-5.0); Alkaline Phosphatase 83 U/L (45-117); Anion Gap 6 (5-15); BUN 43 mg/dL (7-18); BUN/Creat Ratio 39.4 RATIO (10-20); Calcium,Total 8.8 mg/dL (8.5-10.1); Chloride 99 mmol/L (98-107); Creatinine, Serum 1.09 mg/dL (0.55-1.02); EST Glomerular Filtration Rate 52 mL/min (>60); Est Glom Filt Rate - Afr Amer 62 mL/min (>60); Globulin 3.7 g/dL (2.2-4.2); Glucose 390 mg/dL (74-106); Protein, Total 6.8 g/dL (6.4-8.2); Sodium Level 131 mmol/L (136-145)
[2020-08-21] MEDS: dexAMETHasone 4 MG Tablet 6 MG PO (10:00)
[2020-08-21] MEDS: hydroCHLOROthiazide 25 MG Tablet PO (10:01)
[2020-08-21] MEDS: Enoxaparin 40 MG/0.4 ML Syringe SC ×2 (10:01→21:13)
[2020-08-21] MEDS: Albuterol Sulfate 8 gm Inhaler (60 puffs) 2 PUFF INHALATION ×4 (10:02→21:15)
[2020-08-21] MEDS: Atenolol 50 MG Tablet PO (10:02)
[2020-08-21] MEDS: Lisinopril 20 MG Tablet PO (10:02)
[2020-08-21] MEDS: Levothyroxine 150 MCG Tablet PO (10:02)
[2020-08-21] MEDS: 0.9% Saline Lock 10 ML Syringe IV (10:52)
[2020-08-21 12:25] LABS: Bedside Glucose 408 mg/dL (70-110)
--- NOTE | 2020-08-21 15:25 | NURSING ---
pt ambulated to BR with 2 off, sats down to 85%. Replaced O2 @ 2L NC, pt recovered quickly up to 96%.
--- NOTE | 2020-08-21 16:46 | PN.ID_ITS ---
Patient Problems: Active and Suspected Problems Pneumonia due to COVID-19 virus (Acute) Hypoxia (Acute) Nausea and vomiting (Acute) Diarrhea (Acute) Subjective: Not feeling much better, no fever, no n/v/d - Physical Exam Vitals/I&O's: Vital Signs Temp Pulse Resp BP Pulse Ox 97.8 F 53 L 24 H 139/72 H 85 08/21/20 15:22 08/21/20 15:22 08/21/20 15:22 08/21/20 15:22 08/21/20 15:22 Oxygen Flow Rate (L/min) 1 Oxygen Delivery Method Room Air Weight: 100.69 kg Body Mass Index (BMI) 41.9 Intake and Output for Last 24 Hours 08/19/20 08/20/20 08/21/20 23:59 23:59 23:59 Intake Total 500 / 500 2440 / 2440 990 / 990 Output Total 650 / 650 200 / 200 Balance 500 / 500 1790 / 1790 790 / 790 General: Alert, Cooperative, No apparent distress Lungs: Diminished Cardiovascular: Regular rate, Regular Rhythm Abdomen: Soft, Non Tender, Non-Distended Skin: No rashes Microbiology Past 72 Hours 08/20/20 02:21 Interface Orders Legionella Antigen - Final 08/20/20 02:21 Interface Orders Streptococcus pneumoniae Antigen (M - Final Laboratory Results 08/19/20 20:00: Blood Type O POSITIVE 08/20/20 17:09: POC Glucose 432 H 08/20/20 22:54: POC Glucose 468 H* 08/21/20 06:43: POC Glucose 408 H 08/21/20 06:44: WBC 6.3, RBC 4.33, Hgb 13.9, Hct 42.6, MCV 98.4, MCH 32.1 H, MCHC 32.6, RDW Std Deviation 43.1, RDW Coeff of Cynthia 11.9, Plt Count 190, MPV 10.1, Immature Gran % (Auto) 0.600, Neut % (Auto) 70.8 H, Lymph % (Auto) 18.8 L, [place] % (Auto) 9.5, Eos % (Auto) 0.0, Baso % (Auto) 0.3, Absolute Neuts (auto) 4.5, Absolute Lymphs (auto) 1.19, Nucleated RBC % 0 08/21/20 06:44: Sodium 131 L, Potassium 5.0, Chloride 99, Carbon Dioxide 26.0, Anion Gap 6, BUN 43 H, Creatinine 1.09 H, Estim Creat Clear Calc 32.10, Est GFR (MDRD) Af Amer 62, Est GFR (MDRD) Non-Af 52 L, BUN/Creatinine Ratio 39.4 H, Glucose 390 H, Calcium 8.8, Total Bilirubin 0.40, AST 39 H, ALT 45, Alkaline Phosphatase 83, Total Protein 6.8, Albumin 3.1 L, Globulin 3.7, Albumin/Globulin Ratio 0.8 L 08/21/20 11:59: POC Glucose 408 H Current Medications Acetaminophen (Acetaminophen 325 Mg Tablet) 650 mg PO Q4H PRN PRN PRN Reason: Pain Score 1-3 /Temp>100.7 Albuterol Sulfate (Albuterol Sulfate 8 Gm Inhaler (60 Puffs)) 2 puff INHALATION 4X/DAY [facility] Last Admin: 08/21/20 15:10 Dose: 2 puff Documented by: Atenolol (Atenolol 50 Mg Tablet) 50 mg PO BID [facility] Last Admin: 08/21/20 10:02 Dose: 50 mg Documented by: Atorvastatin Calcium (Atorvastatin Calcium 20 Mg Tablet) 20 mg PO QHS [facility] Last Admin: 08/20/20 22:56 Dose: 20 mg Documented by: Dexamethasone (Dexamethasone 4 Mg Tablet) 6 mg PO DAILY [facility] Stop: 08/29/20 10:01 Last Admin: 08/21/20 10:00 Dose: 6 mg Documented by: Enoxaparin Sodium (Enoxaparin 40 Mg/0.4 Ml Syringe) 40 mg SC BID [facility] Last Admin: 08/21/20 10:01 Dose: 40 mg Documented by: Hydrochlorothiazide (Hydrochlorothiazide 25 Mg Tablet) 25 mg PO DAILY [facility] Last Admin: 08/21/20 10:01 Dose: 25 mg Documented by: Remdesivir 100 mg/ Sodium (Chloride) 250 mls @ 125 mls/hr IV DAILY [facility]; Protocol Stop: 08/24/20 11:59 Last Infusion: 08/21/20 12:51 Dose: Infused Documented by: Insulin Glargine (Insulin Glargine 100 Units/Ml Pen) 25 units SC BREAKFAST [facility] Last Admin: 08/21/20 10:00 Dose: 25 units Documented by: Insulin Glargine (Insulin Glargine 100 Units/Ml Pen) 25 units SC DINNER [facility] Insulin Human Lispro (Insulin Lispro 100 Unit/Ml Insuln.Pen) 0 unit SC ACHS [facility]; Protocol Last Admin: 08/21/20 12:02 Dose: 14 u Documented by: Levothyroxine Sodium (Levothyroxine 150 Mcg Tablet) 150 mcg PO DAILY [facility] Last Admin: 08/21/20 10:02 Dose: 150 mcg Documented by: Lisinopril (Lisinopril 20 Mg Tablet) 20 mg PO DAILY [facility] Last Admin: 08/21/20 10:02 Dose: 20 mg Documented by: Ondansetron HCl (Ondansetron 4 Mg/2 Ml Vial) 4 mg IV Q8H PRN PRN PRN Reason: NAUSEA/VOMITING Oxycodone HCl (Oxycodone 5 Mg Tablet) 5 mg PO Q4H PRN PRN PRN Reason: Pain Score 4-5 Sodium Chloride (0.9% Saline Lock 10 Ml Syringe) 10 - 40 ml IV UD PRN PRN Reason: SALINE FLUSH Last Admin: 08/21/20 10:52 Dose: 10 ml Documented by: Medical Necessity - Tobacco Use Smoking Status: Former smoker Route of nutrition/ use of supplements: [] Nutritional Intake: [] IV Site: [] Silver Catheter: [] - Assessment/Plan Antibiotics: [] Assessment/Plan: [] Active and Suspected Problems Pneumonia due to COVID-19 virus (Acute) Hypoxia (Acute) Nausea and vomiting (Acute) Diarrhea (Acute) covid with hypoxia - CT neg for PE. Sx started 08/12. On dex and remdesivir. On lovenox 40mg bid. D-dimer was 1.5. UAg neg. 85% on RA this afternoon. Reviewed EUA and risks/benefits of plasma, we agree to start. Will follow
[2020-08-21 17:15] LABS: Bedside Glucose 402 mg/dL (70-110)
[2020-08-21] MEDS: Atorvastatin Calcium 20 MG Tablet PO (21:12)
[2020-08-21 21:51] LABS: Glucose 548 mg/dL (74-106)
[2020-08-21 23:16] LABS: Bedside Glucose > 500 mg/dL (70-110)
[2020-08-21] MEDS: Insulin Lispro 100 UNIT/ML INSULN.PEN 20 UNIT SC (23:23)
[2020-08-22] VITALS (16 sets, daily range): BP systolic 111–175; BP diastolic 38–76; PULSE 53–70; RESP 20–24; TEMP 36.4–36.9; O2SAT 93–96
[2020-08-22] MEDS: 0.9% Saline Lock 10 ML Syringe IV ×2 (04:14→21:38)
[2020-08-22 05:25] LABS: Bedside Glucose 363 mg/dL (70-110)
[2020-08-22] MEDS: Insulin Lispro 100 UNIT/ML INSULN.PEN SC ×4 (07:42→21:33)
[2020-08-22] MEDS: dexAMETHasone 4 MG Tablet 6 MG PO (07:43)
[2020-08-22] MEDS: Atenolol 50 MG Tablet PO ×2 (07:44→21:35)
[2020-08-22] MEDS: Enoxaparin 40 MG/0.4 ML Syringe SC ×2 (07:44→21:35)
[2020-08-22] MEDS: hydroCHLOROthiazide 25 MG Tablet PO (07:44)
[2020-08-22] MEDS: Albuterol Sulfate 8 gm Inhaler (60 puffs) 2 PUFF INHALATION ×2 (07:44→21:36)
[2020-08-22] MEDS: Lisinopril 20 MG Tablet PO (07:44)
[2020-08-22] MEDS: Levothyroxine 150 MCG Tablet PO (07:44)
[2020-08-22 07:51] LABS: Absolute Lymphocyte Count 1.01 X10^3/uL (0.83-4.51); Absolute Neutrophil Count 6.2 X10^3/uL (2.0-7.7); Basophil# 0.03 X10^3/uL; Basophil% 0.4 % (0-1); Hematocrit 45.3 % (37-47); Hemoglobin 14.2 g/dL (12.0-15.0); Lymphocyte # 1.01 X10^3/ul (4.0); Lymphocyte % 12.5 % (19-41); Mean Corp Hgb Conc 31.3 g/dL (32-36); Mean Corpuscular Hgb 32.1 pg (27.0-32.0); Mean Corpuscular Volume 102.5 fL (81-99); Mean Platelet Vol. 10.2 fl (6.2-12.0); Monocyte# 0.75 X10^3/uL; Monocyte% 9.3 % (0-10); NRBC Flagged by Analyzer 0 % (0-5); Neutrophil # 6.23 X10^3/uL (2.7-7.7); Neutrophil % 77.1 % (47-70); Platelet Count 194 K/mm3 (150-450); RBC Distribution Width CV 11.8 % (11.6-14.6); RBC Distribution Width SD 44.8 fl (35.1-43.9); Red Blood Count 4.42 M/mm3 (4.2-5.4); White Blood Count 8.1 K/mm3 (4.4-11.0)
[2020-08-22 07:56] LABS: Bedside Glucose 346 mg/dL (70-110)
[2020-08-22 08:28] LABS: ALB/GLOB Ratio 0.8 RATIO (0.9-2.4); AST(SGOT) 35 U/L (15-37); Alanine Aminotransfer ALT/SGPT 51 U/L (13-56); Albumin, Serum 3.3 g/dL (3.2-5.0); Alkaline Phosphatase 85 U/L (45-117); Anion Gap 5 (5-15); BUN 50 mg/dL (7-18); BUN/Creat Ratio 47.2 RATIO (10-20); Calcium,Total 9.4 mg/dL (8.5-10.1); Chloride 101 mmol/L (98-107); Creatinine, Serum 1.06 mg/dL (0.55-1.02); EST Glomerular Filtration Rate 53 mL/min (>60); Est Glom Filt Rate - Afr Amer 65 mL/min (>60); Estimated Creatinine Clearance 33.01 ml/min; Globulin 3.9 g/dL (2.2-4.2); Glucose 328 mg/dL (74-106); Potassium 5.1 mmol/L (3.5-5.1); Protein, Total 7.2 g/dL (6.4-8.2); Sodium Level 134 mmol/L (136-145)
--- NOTE | 2020-08-22 09:26 | PN_ITS ---
Patient Problems: Active and Suspected Problems Pneumonia due to COVID-19 virus (Acute) Hypoxia (Acute) Nausea and vomiting (Acute) Diarrhea (Acute) Subjective: Patient was seen and examined today, she does not complain of any increased shortness of breath, she denies any fevers chills or chest pain. She currently requires 2 L of oxygen via nasal cannula. Objective: general: Alert, Oriented x3, Cooperative, No apparent distress, Well developed, Well nourished HEENT: Atraumatic, PERRLA, EOMI, Normocephalic Oral: Moist Mucosa Neck: Supple, No JVD, Trachea Midline, Thyroid Normal Size and Texture Lungs: Clear to auscultation, Normal air movement, No rhonchi, No wheeze, No rales Cardiovascular: Regular rate, Regular Rhythm, Normal S1, Normal S2, No murmurs, PMI Normal, No rub noted, No Gallop Abdomen: Bowel Sounds Present, Soft, Non Tender, Non-Distended, No hernias noted Extremities: No clubbing, No cyanosis, No edema, Capillary Refill Less than 3 Seconds Skin: No rashes, No breakdown Musculoskeletal: No Tenderness to Palpation of Joints or Extremities Neurological: Cranial nerves II-XII grossly intact, Neuro grossly intact, Sensory exam intact to light touch and pain, Coordination normal Psych/Mental Status: Normal Affect, Appropriate, Alert and oriented to time, place, person, mood and affect - Physical Exam Vitals/I&O's: Vital Signs Temp Pulse Resp BP Pulse Ox 98.1 F 53 L 24 H 175/76 H 93 08/22/20 07:37 08/22/20 07:37 08/22/20 07:37 08/22/20 07:37 08/22/20 08:36 Oxygen Flow Rate (L/min) 2 Oxygen Delivery Method Nasal Cannula Weight: 100.69 kg Body Mass Index (BMI) 41.9 Intake and Output for Last 24 Hours 08/20/20 08/21/20 08/22/20 23:59 23:59 23:59 Intake Total 2440 / 2440 1470 / 1470 750 / 750 Output Total 650 / 650 200 / 600 1350 / 1350 Balance 1790 / 1790 1270 / 870 -600 / -600 Microbiology Past 72 Hours 08/20/20 02:21 Interface Orders Legionella Antigen - Final 08/20/20 02:21 Interface Orders Streptococcus pneumoniae Antigen (M - Final Laboratory Results 08/21/20 11:59: POC Glucose 408 H 08/21/20 17:10: POC Glucose 402 H 08/21/20 20:58: POC Glucose > 500 H* 08/21/20 21:20: Glucose 548 H* 08/22/20 03:58: POC Glucose 363 H 08/22/20 07:20: WBC 8.1, RBC 4.42, Hgb 14.2, Hct 45.3, MCV 102.5 H, MCH 32.1 H, MCHC 31.3 L, RDW Std Deviation 44.8 H, RDW Coeff of Cynthia 11.8, Plt Count 194, MPV 10.2, Immature Gran % (Auto) 0.700, Neut % (Auto) 77.1 H, Lymph % (Auto) 12.5 L, [place] % (Auto) 9.3, Eos % (Auto) 0.0, Baso % (Auto) 0.4, Absolute Neuts (auto) 6.2, Absolute Lymphs (auto) 1.01, Nucleated RBC % 0 08/22/20 07:20: Sodium 134 L, Potassium 5.1, Chloride 101, Carbon Dioxide 28.0, Anion Gap 5, BUN 50 H, Creatinine 1.06 H, Estim Creat Clear Calc 33.01, Est GFR (MDRD) Af Amer 65, Est GFR (MDRD) Non-Af 53 L, BUN/Creatinine Ratio 47.2 H, Glucose 328 H, Calcium 9.4, Total Bilirubin 0.40, AST 35, ALT 51, Alkaline Phosphatase 85, Total Protein 7.2, Albumin 3.3, Globulin 3.9, Albumin/Globulin Ratio 0.8 L 08/22/20 07:34: POC Glucose 346 H Current Medications Acetaminophen (Acetaminophen 325 Mg Tablet) 650 mg PO Q4H PRN PRN PRN Reason: Pain Score 1-3 /Temp>100.7 Albuterol Sulfate (Albuterol Sulfate 8 Gm Inhaler (60 Puffs)) 2 puff INHALATION 4X/DAY [facility] Last Admin: 08/22/20 07:44 Dose: 2 puff Documented by: Atenolol (Atenolol 50 Mg Tablet) 50 mg PO BID [facility] Last Admin: 08/22/20 07:44 Dose: 50 mg Documented by: Atorvastatin Calcium (Atorvastatin Calcium 20 Mg Tablet) 20 mg PO QHS [facility] Last Admin: 08/21/20 21:12 Dose: 20 mg Documented by: Dexamethasone (Dexamethasone 4 Mg Tablet) 6 mg PO DAILY [facility] Stop: 08/29/20 10:01 Last Admin: 08/22/20 07:43 Dose: 6 mg Documented by: Dextrose (Dextrose 50%-Water 25 Gm/50 Ml Disp.Syrin) 0 gm IV X1 PRN; Protocol PRN Reason: Hypoglycemia Enoxaparin Sodium (Enoxaparin 40 Mg/0.4 Ml Syringe) 40 mg SC BID [facility] Last Admin: 08/22/20 07:44 Dose: 40 mg Documented by: Glucagon (Glucagon 1 Mg/Ml Syringe) 1 mg IM .X1 PRN PRN Reason: Hypoglycemia Hydrochlorothiazide (Hydrochlorothiazide 25 Mg Tablet) 25 mg PO DAILY [facility] Last Admin: 08/22/20 07:44 Dose: 25 mg Documented by: Remdesivir 100 mg/ Sodium (Chloride) 250 mls @ 125 mls/hr IV DAILY [facility]; Protocol Stop: 08/24/20 11:59 Last Infusion: 08/21/20 12:51 Dose: Infused Documented by: Insulin Glargine (Insulin Glargine 100 Units/Ml Pen) 25 units SC BREAKFAST [facility] Last Admin: 08/22/20 07:42 Dose: 25 units Documented by: Insulin Glargine (Insulin Glargine 100 Units/Ml Pen) 25 units SC DINNER [facility] Last Admin: 08/21/20 17:14 Dose: 25 units Documented by: Insulin Human Lispro (Insulin Lispro 100 Unit/Ml Insuln.Pen) 0 unit SC ACHS [facility]; Protocol Last Admin: 08/22/20 07:42 Dose: 12 u Documented by: Levothyroxine Sodium (Levothyroxine 150 Mcg Tablet) 150 mcg PO DAILY [facility] Last Admin: 08/22/20 07:44 Dose: 150 mcg Documented by: Lisinopril (Lisinopril 20 Mg Tablet) 20 mg PO DAILY [facility] Last Admin: 08/22/20 07:44 Dose: 20 mg Documented by: Ondansetron HCl (Ondansetron 4 Mg/2 Ml Vial) 4 mg IV Q8H PRN PRN PRN Reason: NAUSEA/VOMITING Oxycodone HCl (Oxycodone 5 Mg Tablet) 5 mg PO Q4H PRN PRN PRN Reason: Pain Score 4-5 Sodium Chloride (0.9% Saline Lock 10 Ml Syringe) 10 - 40 ml IV UD PRN PRN Reason: SALINE FLUSH Last Admin: 08/22/20 04:14 Dose: 10 ml Documented by: Medical Necessity - Tobacco Use Smoking Status: Former smoker Assessment/Plan All Active Problems Pneumonia due to COVID-19 virus (Acute) Hypoxia (Acute) Nausea and vomiting (Acute) Diarrhea (Acute) #1 COVID-19 pneumonia-infectious diseases is seeing patient, she is on dexamethasone and remdesivir #2 hypoxia secondary to #1-pulse ox will be monitored, patient is on low-flow oxygen at this time and it may be possible to wean her off oxygen in the next 48 hours #3 type 2 diabetes-blood sugars will be monitored, sliding scale insulin will be used, patient's blood sugars have been high, I will adjust patient's basal insulin today #4 hyperlipidemia #5 COPD #6 essential hypertension Inpatient E&M: 55740 Subs Hosp L2
[2020-08-22 12:00] LABS: Bedside Glucose 349 mg/dL (70-110)
[2020-08-22 16:45] LABS: Bedside Glucose 241 mg/dL (70-110)
[2020-08-22] MEDS: Atorvastatin Calcium 20 MG Tablet PO (21:35)
[2020-08-22 22:01] LABS: Bedside Glucose 286 mg/dL (70-110)
[2020-08-23] VITALS (11 sets, daily range): BP systolic 140–189; BP diastolic 55–73; PULSE 50–56; RESP 20–24; TEMP 36.5–37; O2SAT 87–96
[2020-08-23 05:16] LABS: Bedside Glucose 114 mg/dL (70-110)
[2020-08-23 06:56] LABS: Absolute Lymphocyte Count 1.19 X10^3/uL (0.83-4.51); Absolute Neutrophil Count 10.5 X10^3/uL (2.0-7.7); Basophil# 0.02 X10^3/uL; Basophil% 0.2 % (0-1); Hematocrit 43.4 % (37-47); Hemoglobin 14.4 g/dL (12.0-15.0); Lymphocyte # 1.19 X10^3/ul (4.0); Mean Corp Hgb Conc 33.2 g/dL (32-36); Mean Corpuscular Hgb 32.2 pg (27.0-32.0); Mean Corpuscular Volume 97.1 fL (81-99); Mean Platelet Vol. 10.8 fl (6.2-12.0); Monocyte# 1.45 X10^3/uL; NRBC Flagged by Analyzer 0 % (0-5); Neutrophil # 10.51 X10^3/uL (2.7-7.7); Neutrophil % 79.4 % (47-70); Platelet Count 228 K/mm3 (150-450); RBC Distribution Width CV 11.9 % (11.6-14.6); RBC Distribution Width SD 42.4 fl (35.1-43.9); Red Blood Count 4.47 M/mm3 (4.2-5.4); White Blood Count 13.2 K/mm3 (4.4-11.0)
[2020-08-23 07:24] LABS: ALB/GLOB Ratio 0.9 RATIO (0.9-2.4); AST(SGOT) 36 U/L (15-37); Alanine Aminotransfer ALT/SGPT 53 U/L (13-56); Albumin, Serum 3.3 g/dL (3.2-5.0); Alkaline Phosphatase 87 U/L (45-117); Anion Gap 5 (5-15); BUN 34 mg/dL (7-18); BUN/Creat Ratio 44.2 RATIO (10-20); Calcium,Total 9.3 mg/dL (8.5-10.1); Chloride 104 mmol/L (98-107); Creatinine, Serum 0.77 mg/dL (0.55-1.02); EST Glomerular Filtration Rate 77 mL/min (>60); Est Glom Filt Rate - Afr Amer 93 mL/min (>60); Estimated Creatinine Clearance 34.99 ml/min; Globulin 3.7 g/dL (2.2-4.2); Glucose 106 mg/dL (74-106); Potassium 4.5 mmol/L (3.5-5.1); Sodium Level 141 mmol/L (136-145)
[2020-08-23] MEDS: dexAMETHasone 4 MG Tablet 6 MG PO (08:19)
[2020-08-23] MEDS: Lisinopril 20 MG Tablet PO (08:20)
[2020-08-23] MEDS: Enoxaparin 40 MG/0.4 ML Syringe SC ×2 (08:20→22:26)
[2020-08-23] MEDS: hydroCHLOROthiazide 25 MG Tablet PO (08:20)
[2020-08-23] MEDS: Atenolol 50 MG Tablet PO ×2 (08:20→22:26)
[2020-08-23] MEDS: Levothyroxine 150 MCG Tablet PO (08:20)
[2020-08-23] MEDS: Albuterol Sulfate 8 gm Inhaler (60 puffs) 2 PUFF INHALATION ×4 (08:20→22:36)
--- NOTE | 2020-08-23 09:38 | NURSING ---
SADAFT TO DR MARTINEZ MAKING HIM AWARE OF AM BGM AMBULATING PO ON RA. NEW ORDERS RECEIVED.
[2020-08-23 09:51] LABS: Bedside Glucose 116 mg/dL (70-110)
[2020-08-23] MEDS: Insulin Lispro 100 UNIT/ML INSULN.PEN SC ×3 (11:38→22:26)
[2020-08-23 12:50] LABS: Bedside Glucose 223 mg/dL (70-110)
--- NOTE | 2020-08-23 16:22 | PCM.PROGNOTE ---
Patient Problems: Active and Suspected Problems Pneumonia due to COVID-19 virus (Acute) Hypoxia (Acute) Nausea and vomiting (Acute) Diarrhea (Acute) Subjective: Patient was seen and examined today, she remains on supplemental oxygen at 2 L, her pulse ox on room air today was 87%. Patient will receive her last dose of remdesivir on 08/24/2020, if the patient's respiratory status remains stable tomorrow, she could be discharged home on supplemental oxygen if needed. Patient will need to be ambulated tomorrow prior to discharge. Patient does not complain of any increased shortness of breath or chest discomfort. Objective: general: Alert, Oriented x3, Cooperative, No apparent distress, Well developed, Well nourished HEENT: Atraumatic, PERRLA, EOMI, Normocephalic Oral: Moist Mucosa Neck: Supple, No JVD, Trachea Midline, Thyroid Normal Size and Texture Lungs: Clear to auscultation, Normal air movement, No rhonchi, No wheeze, No rales Cardiovascular: Regular rate, Regular Rhythm, Normal S1, Normal S2, No murmurs, PMI Normal, No rub noted, No Gallop Abdomen: Bowel Sounds Present, Soft, Non Tender, Non-Distended, No hernias noted Extremities: No clubbing, No cyanosis, No edema, Capillary Refill Less than 3 Seconds Skin: No rashes, No breakdown Musculoskeletal: No Tenderness to Palpation of Joints or Extremities Neurological: Cranial nerves II-XII grossly intact, Neuro grossly intact, Sensory exam intact to light touch and pain, Coordination normal Psych/Mental Status: Normal Affect, Appropriate, Alert and oriented to time, place, person, mood and affect - Physical Exam Vitals/I&O's: Vital Signs Temp Pulse Resp BP Pulse Ox 98.6 F 54 L 22 H 149/55 H 95 08/23/20 14:00 08/23/20 14:00 08/23/20 14:00 08/23/20 14:00 08/23/20 14:00 Oxygen Flow Rate (L/min) 2 Oxygen Delivery Method Nasal Cannula Weight: 100.69 kg Body Mass Index (BMI) 41.9 Intake and Output for Last 24 Hours 08/21/20 08/22/20 08/23/20 23:59 23:59 23:59 Intake Total 1470 / 1470 1640 / 1640 690 / 690 Output Total 200 / 600 1750 / 2450 700 / 700 Balance 1270 / 870 -110 / -810 -10 / -10 Laboratory Results 08/22/20 16:26: POC Glucose 241 H 08/22/20 21:30: POC Glucose 286 H 08/23/20 05:05: WBC 13.2 H, RBC 4.47, Hgb 14.4, Hct 43.4, MCV 97.1 D, MCH 32.2 H, MCHC 33.2 D, RDW Std Deviation 42.4, RDW Coeff of Cynthia 11.9, Plt Count 228, MPV 10.8, Immature Gran % (Auto) 0.400, Neut % (Auto) 79.4 H, Lymph % (Auto) 9.0 L, [place] % (Auto) 11.0 H, Eos % (Auto) 0.0, Baso % (Auto) 0.2, Absolute Neuts (auto) 10.5 H, Absolute Lymphs (auto) 1.19, Nucleated RBC % 0 08/23/20 05:05: Sodium 141, Potassium 4.5, Chloride 104, Carbon Dioxide 32.0, Anion Gap 5, BUN 34 H, Creatinine 0.77, Estim Creat Clear Calc 34.99, Est GFR (MDRD) Af Amer 93, Est GFR (MDRD) Non-Af 77, BUN/Creatinine Ratio 44.2 H, Glucose 106, Calcium 9.3, Total Bilirubin 0.40, AST 36, ALT 53, Alkaline Phosphatase 87, Total Protein 7.0, Albumin 3.3, Globulin 3.7, Albumin/Globulin Ratio 0.9 08/23/20 05:05: POC Glucose 114 H 08/23/20 08:03: POC Glucose 116 H 08/23/20 11:35: POC Glucose 223 H Current Medications Acetaminophen (Acetaminophen 325 Mg Tablet) 650 mg PO Q4H PRN PRN PRN Reason: Pain Score 1-3 /Temp>100.7 Albuterol Sulfate (Albuterol Sulfate 8 Gm Inhaler (60 Puffs)) 2 puff INHALATION 4X/DAY [facility] Last Admin: 08/23/20 14:58 Dose: 2 puff Documented by: Atenolol (Atenolol 50 Mg Tablet) 50 mg PO BID [facility] Last Admin: 08/23/20 08:20 Dose: 50 mg Documented by: Atorvastatin Calcium (Atorvastatin Calcium 20 Mg Tablet) 20 mg PO QHS [facility] Last Admin: 08/22/20 21:35 Dose: 20 mg Documented by: Dexamethasone (Dexamethasone 4 Mg Tablet) 6 mg PO DAILY [facility] Stop: 08/29/20 10:01 Last Admin: 08/23/20 08:19 Dose: 6 mg Documented by: Dextrose (Dextrose 50%-Water 25 Gm/50 Ml Disp.Syrin) 0 gm IV X1 PRN; Protocol PRN Reason: Hypoglycemia Enoxaparin Sodium (Enoxaparin 40 Mg/0.4 Ml Syringe) 40 mg SC BID [facility] Last Admin: 08/23/20 08:20 Dose: 40 mg Documented by: Glucagon (Glucagon 1 Mg/Ml Syringe) 1 mg IM .X1 PRN PRN Reason: Hypoglycemia Hydrochlorothiazide (Hydrochlorothiazide 25 Mg Tablet) 25 mg PO DAILY [facility] Last Admin: 08/23/20 08:20 Dose: 25 mg Documented by: Remdesivir 100 mg/ Sodium (Chloride) 250 mls @ 125 mls/hr IV DAILY [facility]; Protocol Stop: 08/24/20 11:59 Last Infusion: 08/23/20 12:43 Dose: Infused Documented by: Insulin Glargine (Insulin Glargine 100 Units/Ml Pen) 35 units SC BREAKFAST [facility] Last Admin: 08/23/20 09:40 Dose: Not Given Documented by: Insulin Glargine (Insulin Glargine 100 Units/Ml Pen) 35 units SC DINNER [facility] Last Admin: 08/22/20 16:32 Dose: 35 units Documented by: Insulin Human Lispro (Insulin Lispro 100 Unit/Ml Insuln.Pen) 0 unit SC ACHS [facility]; Protocol Last Admin: 08/23/20 11:38 Dose: 6 u Documented by: Levothyroxine Sodium (Levothyroxine 150 Mcg Tablet) 150 mcg PO DAILY [facility] Last Admin: 08/23/20 08:20 Dose: 150 mcg Documented by: Lisinopril (Lisinopril 20 Mg Tablet) 20 mg PO DAILY [facility] Last Admin: 08/23/20 08:20 Dose: 20 mg Documented by: Ondansetron HCl (Ondansetron 4 Mg/2 Ml Vial) 4 mg IV Q8H PRN PRN PRN Reason: NAUSEA/VOMITING Oxycodone HCl (Oxycodone 5 Mg Tablet) 5 mg PO Q4H PRN PRN PRN Reason: Pain Score 4-5 Sodium Chloride (0.9% Saline Lock 10 Ml Syringe) 10 - 40 ml IV UD PRN PRN Reason: SALINE FLUSH Last Admin: 08/22/20 21:38 Dose: 10 ml Documented by: Medical Necessity - Tobacco Use Smoking Status: Former smoker Assessment/Plan All Active Problems Pneumonia due to COVID-19 virus (Acute) Hypoxia (Acute) Nausea and vomiting (Acute) Diarrhea (Acute) #1 COVID-19 pneumonia-infectious diseases is seeing patient, she is on dexamethasone and remdesivir, her remdesivir dosing ends tomorrow #2 hypoxia secondary to #1-pulse ox will be monitored, patient is on low-flow oxygen at this time and it may be possible to wean her off oxygen in the next 24 hours, if not, she will have to be discharged home on supplemental oxygen. #3 type 2 diabetes-blood sugars will be monitored, sliding scale insulin will be used, patient's blood sugars have been high, I will adjust patient's basal insulin today #4 hyperlipidemia #5 COPD #6 essential hypertension Inpatient E&M: 84011 Subs Hosp L2
[2020-08-23 19:05] LABS: Bedside Glucose 251 mg/dL (70-110)
[2020-08-23] MEDS: Atorvastatin Calcium 20 MG Tablet PO (22:26)
[2020-08-23 22:46] LABS: Bedside Glucose 180 mg/dL (70-110)
[2020-08-24] VITALS (7 sets, daily range): BP systolic 135–140; BP diastolic 51–63; PULSE 54–56; RESP 18–20; TEMP 36.6–36.8; O2SAT 88–96
[2020-08-24] MEDS: Acetaminophen 325 MG Tablet 650 MG PO (05:11)
[2020-08-24 06:24] LABS: Absolute Lymphocyte Count 1.78 X10^3/uL (0.83-4.51); Absolute Neutrophil Count 6.1 X10^3/uL (2.0-7.7); Basophil# 0.01 X10^3/uL; Basophil% 0.1 % (0-1); Hematocrit 41.1 % (37-47); Hemoglobin 13.3 g/dL (12.0-15.0); Lymphocyte # 1.78 X10^3/ul (4.0); Lymphocyte % 20.1 % (19-41); Mean Corp Hgb Conc 32.4 g/dL (32-36); Mean Corpuscular Hgb 31.4 pg (27.0-32.0); Mean Corpuscular Volume 97.2 fL (81-99); Mean Platelet Vol. 10.2 fl (6.2-12.0); Monocyte# 0.91 X10^3/uL; Monocyte% 10.3 % (0-10); NRBC Flagged by Analyzer 0 % (0-5); Neutrophil # 6.11 X10^3/uL (2.7-7.7); Neutrophil % 68.8 % (47-70); Platelet Count 205 K/mm3 (150-450); RBC Distribution Width CV 11.9 % (11.6-14.6); RBC Distribution Width SD 42.4 fl (35.1-43.9); Red Blood Count 4.23 M/mm3 (4.2-5.4); White Blood Count 8.9 K/mm3 (4.4-11.0)
[2020-08-24 07:04] LABS: AST(SGOT) 26 U/L (15-37); Alanine Aminotransfer ALT/SGPT 48 U/L (13-56); Albumin, Serum 3.1 g/dL (3.2-5.0); Alkaline Phosphatase 84 U/L (45-117); Anion Gap 6 (5-15); BUN 27 mg/dL (7-18); Calcium,Total 8.6 mg/dL (8.5-10.1); Chloride 105 mmol/L (98-107); Globulin 3.1 g/dL (2.2-4.2); Glucose 115 mg/dL (74-106); Potassium 4.2 mmol/L (3.5-5.1); Protein, Total 6.2 g/dL (6.4-8.2); Sodium Level 142 mmol/L (136-145)
[2020-08-24] MEDS: dexAMETHasone 4 MG Tablet 6 MG PO (08:42)
[2020-08-24] MEDS: Levothyroxine 150 MCG Tablet PO (08:43)
[2020-08-24] MEDS: hydroCHLOROthiazide 25 MG Tablet PO (08:43)
[2020-08-24] MEDS: Albuterol Sulfate 8 gm Inhaler (60 puffs) 2 PUFF INHALATION ×2 (08:43→12:59)
[2020-08-24] MEDS: Atenolol 50 MG Tablet PO (08:43)
[2020-08-24] MEDS: Lisinopril 20 MG Tablet PO (08:43)
[2020-08-24] MEDS: Enoxaparin 40 MG/0.4 ML Syringe SC (08:43)
[2020-08-24 09:11] LABS: Bedside Glucose 124 mg/dL (70-110)
[2020-08-24] MEDS: Insulin Lispro 100 UNIT/ML INSULN.PEN SC (11:29)
[2020-08-24 13:06] LABS: Bedside Glucose 177 mg/dL (70-110)
--- NOTE | 2020-08-24 13:15 | DCINST_ITS ---
- Discharge Diagnoses Current Active Problems: Current Active and Chronic Problems Pneumonia due to COVID-19 virus (Acute) Hypoxia (Acute) Nausea and vomiting (Acute) Diarrhea (Acute) Reason(s) for Visit for Discharge Instructions: Acute COVID-19 infection You will use the following diet at home:: Calorie/Carbohydrate Controlled (specify 1200, 1400, etc), Cardiac - 1800 calories Your food should be the consistency of: Regular Your liquids should be the consistency of: Regular/Thin Discharge Activity: Return to Normal Activity Additional Instructions: Continue to use your incentive spirometer all the time. Complete the oral steroid and aspirin as prescribed. You should be on oxygen all the time. Follow-up with pulmonology, as needed, if there are any concerns, call [phone]. Allergies/Adverse Reactions: Allergies No Known Allergies Allergy (Verified 08/19/20 12:10) Medications to take at Discharge Albuterol IH (ProAir) [Proair Hfa] 1 - 2 puff INHALATION Q6H PRN PRN 01/14/19 Atenolol [Tenormin (beta tammy)] 50 mg PO BID 01/14/19 Budesonide/Formoterol 160/4.5 [Symbicort 160/4.5 Mcg Inhaler (SP)] 2 puff INHALATION BID 01/14/19 Insulin Glargine [Lantus SoloStar Pen] 20 units SC QHS 01/14/19 Insulin NPH Human Isophane [Novolin N] 25 unit SQ BID 01/14/19 Insulin Regular, Human [Novolin R] 20 unit SC BID 01/14/19 Levothyroxine [Synthroid] 150 mcg PO DAILY 01/14/19 Lisinopril [Zestril] 20 mg PO DAILY 01/14/19 Multivitamin with Minerals [Multiple Vitamin] 1 each PO DAILY 01/14/19 Simvastatin [Zocor] 40 mg PO QHS 01/14/19 Vit C/E/Zn/Coppr/Lutein/Zeaxan [Preservision Areds 2 Softgel] 1 each PO BID 01/14/19 Hydrochlorothiazide [Hctz] 25 mg PO DAILY 08/19/20 Acetaminophen [Tylenol Tablet] 650 mg PO Q4H PRN PRN tab 08/24/20 Aspirin 81 mg PO DAILY 14 Days #14 tab.chew 08/24/20 Dexamethasone [Decadron] 6 mg PO DAILY 5 Days #5 tab 08/24/20 The following prescriptions were given: Dexamethasone [Decadron] 6 mg PO DAILY 5 Days #5 tab Transmission Status: Pending to [facility] Primary Care Physician: Munira Fox [employer], [employer] [Primary Care Provider] - Please follow up with your Primary Care Physician in: within 2 weeks Test Results: Test results from this visit will be discussed in further detail at your follow- up appointment, if applicable. Proposed Discharge Date: 08/24/20
--- NOTE | 2020-08-24 13:20 | CASEMGMT ---
RN CM Note: Patient will need home oxygen with ambulation. Script and clinicals faxed to [facility]. Portable tank requested for delivery to [facility]. Lily REBOLLEDON RN ACM
--- NOTE | 2020-08-24 13:21 | DS.PCM_ITS ---
Discharge Date and Diagnosis - Problem List Patient Problems: Active and Suspected Problems Pneumonia due to COVID-19 virus (Acute) Hypoxia (Acute) Nausea and vomiting (Acute) Diarrhea (Acute) Date of Admission: 08/19/20 Date of Discharge: 08/24/20 - Primary Discharge Diagnosis Acute Problems: Active Problems Acute hypoxic respiratory insufficiency secondary to acute COVID-19 pneumonia Hospital Course and Treatment Imaging Results: Clinical Impression(s) from Imaging Studies Chest X-Ray 08/19/20 15:40 IMPRESSION: Infiltrate versus atelectasis at the lung bases. The remaining findings are unchanged Electronically Signed: Terrance Mcwilliams DO at 16:51 EST Tel [phone], Service support , Chest CTA 08/19/20 22:23 IMPRESSION: 1. No evidence of pulmonary embolus. 2. No aortic dissection or aneurysm. 3. Consolidation and alveolar infiltrates in the lingula and right middle lobe. 4. Minimal patchy groundglass infiltrates in the upper lungs. 5. Small mediastinal lymph nodes. Electronically Signed: Terrance Mcwilliams DO at 23:41 EST Tel [phone], Service support , ID Operations: None Procedures: None Summary of Care Provided: The patient is a 80 year old F with past medical history of pretension, type II DM who comes in complaints of nausea, vomiting, diarrhea ongoing for several days. Patient has several family members who tested positive for acute COVID- 19. She admitted to mild shortness of breath but denied any fever chills or cough. Her work-up in the ED showed that she was saturating 90% on 2 L of oxygen. COVID-19 PCR was positive. Her admitting chest x-ray showed trait versus atelectasis of the lung bases. D-dimer was elevated at 1.55. CT of the chest was negative for acute PE. It showed consolidation and alveolar infiltrate in the lingula and right middle lobe with minimal patchy opacities in the upper lobe. Patient was started on dexamethasone and remdesivir. She completed 4 doses of remdesivir. She was checked for ambulatory oxygen and did not qualify. Patient was discharged to complete a 10-day Decadron course. Patient Problems: Active and Suspected Problems Pneumonia due to COVID-19 virus (Acute) Hypoxia (Acute) Nausea and vomiting (Acute) Diarrhea (Acute) Subjective: On the day of discharge, patient was seen and examined. She denied any new complaints. She denied any fever or chills. She was ambulated and did not qualify for oxygen. Objective: Physical exam: General: Alert, Oriented x3, Cooperative, No apparent distress, Well developed, Well nourished HEENT: Atraumatic, PERRLA, EOMI, Normocephalic Oral: Moist Mucosa Neck: Supple, No JVD, Trachea Midline, Thyroid Normal Size and Texture Lungs: Clear to auscultation, Normal air movement, No rhonchi, No wheeze, No rales Cardiovascular: Regular rate, Regular Rhythm, Normal S1, Normal S2, No murmurs, PMI Normal, No rub noted, No Gallop Abdomen: Bowel Sounds Present, Soft, Non Tender, Non-Distended, No hernias noted Extremities: No clubbing, No cyanosis, No edema, Capillary Refill Less than 3 Seconds Skin: No rashes, No breakdown Musculoskeletal: No Tenderness to Palpation of Joints or Extremities Neurological: Cranial nerves II-XII grossly intact, Neuro grossly intact, Sensory exam intact to light touch and pain, Coordination normal Psych/Mental Status: Normal Affect, Appropriate, Alert and oriented to time, place, person, mood and affect - Physical Exam Vitals/I&O's: Vital Signs Temp Pulse Resp BP Pulse Ox 98.2 F 55 L 20 H 135/51 H 94 08/24/20 09:03 08/24/20 09:03 08/24/20 09:04 08/24/20 09:03 08/24/20 13:10 Oxygen Flow Rate (L/min) [ 2 AMBULATION with Oxygen] Oxygen Flow Rate (L/min) 2 Oxygen Delivery Method Room Air Weight: 100.69 kg Body Mass Index (BMI) 41.9 Intake and Output for Last 24 Hours 08/22/20 08/23/20 08/24/20 23:59 23:59 23:59 Intake Total 1640 / 1640 1390 / 1390 Output Total 1750 / 2450 700 / 700 Balance -110 / -810 690 / 690 Laboratory Results 08/23/20 16:19: POC Glucose 251 H 08/23/20 22:24: POC Glucose 180 H 08/24/20 06:14: WBC 8.9, RBC 4.23, Hgb 13.3, Hct 41.1, MCV 97.2, MCH 31.4, MCHC 32.4, RDW Std Deviation 42.4, RDW Coeff of Cynthia 11.9, Plt Count 205, MPV 10.2, Immature Gran % (Auto) 0.700, Neut % (Auto) 68.8, Lymph % (Auto) 20.1, Weston % (Auto) 10.3 H, Eos % (Auto) 0.0, Baso % (Auto) 0.1, Absolute Neuts (auto) 6.1, Absolute Lymphs (auto) 1.78, Nucleated RBC % 0 08/24/20 06:14: Sodium 142, Potassium 4.2, Chloride 105, Carbon Dioxide 31.0, Anion Gap 6, BUN 27 H, Creatinine 0.67, Estim Creat Clear Calc 34.99, Est GFR (MDRD) Af Amer 110, Est GFR (MDRD) Non-Af 91, BUN/Creatinine Ratio 40.5 H, Glucose 115 H, Calcium 8.6, Total Bilirubin 0.70, AST 26, ALT 48, Alkaline Phosphatase 84, Total Protein 6.2 L, Albumin 3.1 L, Globulin 3.1, Albumin/Globulin Ratio 1.0 08/24/20 08:33: POC Glucose 124 H 08/24/20 11:28: POC Glucose 177 H Current Medications Acetaminophen (Acetaminophen 325 Mg Tablet) 650 mg PO Q4H PRN PRN PRN Reason: Pain Score 1-3 /Temp>100.7 Last Admin: 08/24/20 05:11 Dose: 650 mg Documented by: Albuterol Sulfate (Albuterol Sulfate 8 Gm Inhaler (60 Puffs)) 2 puff INHALATION 4X/DAY [facility] Last Admin: 08/24/20 12:59 Dose: 2 puff Documented by: Atenolol (Atenolol 50 Mg Tablet) 50 mg PO BID [facility] Last Admin: 08/24/20 08:43 Dose: 50 mg Documented by: Atorvastatin Calcium (Atorvastatin Calcium 20 Mg Tablet) 20 mg PO QHS [facility] Last Admin: 08/23/20 22:26 Dose: 20 mg Documented by: Dexamethasone (Dexamethasone 4 Mg Tablet) 6 mg PO DAILY [facility] Stop: 08/29/20 10:01 Last Admin: 08/24/20 08:42 Dose: 6 mg Documented by: Dextrose (Dextrose 50%-Water 25 Gm/50 Ml Disp.Syrin) 0 gm IV X1 PRN; Protocol PRN Reason: Hypoglycemia Enoxaparin Sodium (Enoxaparin 40 Mg/0.4 Ml Syringe) 40 mg SC BID [facility] Last Admin: 08/24/20 08:43 Dose: 40 mg Documented by: Glucagon (Glucagon 1 Mg/Ml Syringe) 1 mg IM .X1 PRN PRN Reason: Hypoglycemia Hydrochlorothiazide (Hydrochlorothiazide 25 Mg Tablet) 25 mg PO DAILY [facility] Last Admin: 08/24/20 08:43 Dose: 25 mg Documented by: Insulin Glargine (Insulin Glargine 100 Units/Ml Pen) 20 units SC BREAKFAST [facility] Last Admin: 08/24/20 08:41 Dose: 20 u Documented by: Insulin Glargine (Insulin Glargine 100 Units/Ml Pen) 20 units SC DINNER [facility] Last Admin: 08/23/20 17:03 Dose: Not Given Documented by: Insulin Human Lispro (Insulin Lispro 100 Unit/Ml Insuln.Pen) 0 unit SC ACHS [facility]; Protocol Last Admin: 08/24/20 11:29 Dose: 3 u Documented by: Levothyroxine Sodium (Levothyroxine 150 Mcg Tablet) 150 mcg PO DAILY [facility] Last Admin: 08/24/20 08:43 Dose: 150 mcg Documented by: Lisinopril (Lisinopril 20 Mg Tablet) 20 mg PO DAILY [facility] Last Admin: 08/24/20 08:43 Dose: 20 mg Documented by: Ondansetron HCl (Ondansetron 4 Mg/2 Ml Vial) 4 mg IV Q8H PRN PRN PRN Reason: NAUSEA/VOMITING Oxycodone HCl (Oxycodone 5 Mg Tablet) 5 mg PO Q4H PRN PRN PRN Reason: Pain Score 4-5 Sodium Chloride (0.9% Saline Lock 10 Ml Syringe) 10 - 40 ml IV UD PRN PRN Reason: SALINE FLUSH Last Admin: 08/22/20 21:38 Dose: 10 ml Documented by: Discharge Diet: Low fat/ Low Cholesterol, 1800 Calorie Control Diet, 2000 mg Sodium Diet Discharge Activity: Return to Normal Activity Home Medications: Medications to take at Discharge Albuterol IH (ProAir) [Proair Hfa] 1 - 2 puff INHALATION Q6H PRN PRN 01/14/19 Atenolol [Tenormin (beta tammy)] 50 mg PO BID 01/14/19 Budesonide/Formoterol 160/4.5 [Symbicort 160/4.5 Mcg Inhaler (SP)] 2 puff INHALATION BID 01/14/19 Insulin Glargine [Lantus SoloStar Pen] 20 units SC QHS 01/14/19 Insulin NPH Human Isophane [Novolin N] 25 unit SQ BID 01/14/19 Insulin Regular, Human [Novolin R] 20 unit SC BID 01/14/19 Levothyroxine [Synthroid] 150 mcg PO DAILY 01/14/19 Lisinopril [Zestril] 20 mg PO DAILY 01/14/19 Multivitamin with Minerals [Multiple Vitamin] 1 each PO DAILY 01/14/19 Simvastatin [Zocor] 40 mg PO QHS 01/14/19 Vit C/E/Zn/Coppr/Lutein/Zeaxan [Preservision Areds 2 Softgel] 1 each PO BID 01/14/19 Hydrochlorothiazide [Hctz] 25 mg PO DAILY 08/19/20 Acetaminophen [Tylenol Tablet] 650 mg PO Q4H PRN PRN tab 08/24/20 Aspirin 81 mg PO DAILY 14 Days #14 tab.chew 08/24/20 Dexamethasone [Decadron] 6 mg PO DAILY 5 Days #5 tab 08/24/20 Following Prescriptions Were Given to Patient: Aspirin 81 mg PO DAILY 14 Days #14 tab.chew Transmission Status: Received by [facility] Dexamethasone [Decadron] 6 mg PO DAILY 5 Days #5 tab Transmission Status: Received by [facility] Primary Care Physician: Munira Fox CLOTHING SALES ASSISTANT, CLOTHING SALES ASSISTANT-C [Primary Care Provider] - Please follow up with your Primary Care Physician in: within 2 weeks Disposition: Home Minutes spent on discharge:: 40 Patient Condition:: Stable Medical Necessity - Tobacco Use Smoking Status: Former smoker Tobacco Use: Non-smoker Meaningful Use Info Meaningful Use Diagnoses (Choose all that apply): None applicable Inpatient E&M: 54113 Disch Hosp
[2020-08-24 17:08] LABS: BUN/Creat Ratio 23.5 RATIO (10-20); Creatinine, Serum 1.15 mg/dL (0.55-1.02); EST Glomerular Filtration Rate 49 mL/min (>60); Est Glom Filt Rate - Afr Amer 59 mL/min (>60); Estimated Creatinine Clearance 30.42 ml/min
--- NOTE | 2020-08-25 14:04 | CASEMGMT ---
RADHA CM DC PHONE CALL DC DATE: 08.24.2020 DC DISPOSITION: Home DC DIAGNOSIS: COVID-19 LACE/STRATA: 09/03 F/U APPTS MADE PRIOR TO DC: yes No answer and no messaging with name identifier. Lily REBOLLEDON RN ACM
--- NOTE | 2020-08-25 14:19 | CASEMGMT ---
RADHA MARSH DC PHONE CALL DC DATE: 08.24.2020 DC DISPOSITION: Home with new oxygen set up DC DIAGNOSIS: COVIDF-19 LACE/STRATA: 12/ F/U APPTS MADE PRIOR TO DC: yes PRESCRIPTIONS ACQUIRED BY PT: yes Intro role of CM to patient via phone. Pt could not find her dc instruction paper and CM asked her to look with her belongings from the hospital. DC instructions reviewed with her. She picked up her prescription and medications including inhalers were reviewed with her. Patient's daughter is bringing a pulse oximeter to the home today. Reviewed oxygen levels of >90% needed. Reviewed that patient's oxygen level was 94% at rest, but dropped when ambulating, so be sure to wear oxygen with activity. -Reviewed virtual appointment for tomorrow. Office will call ahead of time. Pt states she would rather do telephone visit and RADHA MARSH let her know to tell office staff when she calls. -Pt appreciated the call as she had questions answered. No further questions and no care improvement suggestions. Lily REBOLLEDON RN ACM
== END 2020-08-24 16:20 | disposition home or self-care (01) | DRG 177 ==
LOC: ED 12:47 → MS2 16:08
PROVIDERS: Family Medicine; Internal Medicine; Admitting Provider Student in an Organized Health Care Education/Training Program; Emergency Provider Emergency Medicine; PCP Nurse Practitioner; Visit Provider Internal Medicine
DX: U07.1 COVID-19 (principal); J12.89 Other viral pneumonia; J44.0 Chronic obstructive pulmonary disease with (acute) lower respiratory infection; Z68.41 Body mass index [BMI] 40.0-44.9, adult; E66.01 Morbid (severe) obesity due to excess calories; R06.89 Other abnormalities of breathing; R09.02 Hypoxemia; E03.9 Hypothyroidism, unspecified; E11.9 Type 2 diabetes mellitus without complications; E78.5 Hyperlipidemia, unspecified; I10 Essential (primary) hypertension; Z79.4 Long term (current) use of insulin; Z79.899 Other long term (current) drug therapy; Z87.891 Personal history of nicotine dependence; Z79.82 Long term (current) use of aspirin
CPT/HCPCS: 36415; 71045; 71275; 80048; 80053; 82947; 82962; 83605; 83735; 84145; 84484; 85025; 85379; 86900; 86901; 87449; 87635; 97162; 99285; J7040; J7050; Q9967; A4216; J2405; U0002

== ENCOUNTER → 2020-10-14 08:56 | Outpatient (CLI) | payer MEDICARE, OTHER, SELFPAY ==
[2020-08-19 17:19] VITALS: BMI 41.9
--- NOTE | 2020-10-14 09:02 | VDLE_ITS ---
Reason For Study: Edema RIGHT LEFT GSV is normal. GSV is normal. CFV is compressible, spontaneous, phasic, CFV is compressible, spontaneous, phasic, competent and demonstrates normal competent, and demonstrates normal augmentation. augmentation. FV is compressible, spontaneous, phasic, FV is compressible, spontaneous, phasic, competent and demonstrates normal competent and demonstrates normal augmentation. augmentation. POP V is compressible, spontaneous, phasic, POP V is compressible, spontaneous, phasic, competent and demonstrates normal competent and demonstrates normal augmentation. augmentation. T/P Trunk is compressible. T/P Trunk is compressible. PTV is compressible. PTV is compressible. RT PerV is compressible. LT PerV is compressible. Procedure This is a venous duplex using B-mode, color flow and spectral Doppler. Exam performed in department. A preliminary report was called and/or faxed to [facility]. Interpretation Summary Deep veins of the lower extremities are bilaterally patent and compressible segmentally. There is no evidence of deep vein thrombosis on either side. Valvular competence appears intact within the proximal deep venous systems bilaterally. The great saphenous veins appear bilaterally patent and compressible segmentally. Ordering Physician: Munira Fox Referring Physician: Munira Fox Performed By: Lynn Rodríguez RVT
--- NOTE | 2020-10-14 09:27 | RAD_ITS ---
STUDY: X-RAY CHEST REASON FOR EXAM: Female, 80 years old. CONTINUED SHORTNESS OF BREATH SINCE HAVING COVID AROUND THANKSGIVING TECHNIQUE: PA and lateral COMPARISON: 08/19/2020 FINDINGS: There is mild interstitial thickening and slightly increased density in the right lower lobe.. There is no demonstrated pleural abnormality. Normal size heart. Normal mediastinum and jose. Normal visualized pulmonary arteries. Mildly calcified aortic arch and descending thoracic aorta. Normal visualized thoracic spine. Normal visualized ribs, clavicles, and shoulders. There is no demonstrated abnormality of the visualized soft tissue structures of the upper abdomen. There is improved aeration in both the right lower and left lower lobe since previous study. RAD/Chest PA and Lateral IMPRESSION: Persistent mild interstitial thickening with slightly increased density in the right lower lobe consistent with residual inflammatory scarring with interval improvement in aeration since previous exam.. No new infiltrate or other significant change Electronically Signed: Dusty Barroso MD at 19:48 EST , Service support ,
[2020-10-14 10:26] LABS: Absolute Lymphocyte Count 2.03 X10^3/uL (0.83-4.51); Absolute Neutrophil Count 4.6 X10^3/uL (2.0-7.7); Basophil# 0.06 X10^3/uL; Basophil% 0.8 % (0-1); Eosinophil# 0.21 X10^3/uL; Eosinophils% 2.8 % (0-5); Hematocrit 37.9 % (37-47); Hemoglobin 12.6 g/dL (12.0-15.0); Lymphocyte # 2.03 X10^3/ul (4.0); Lymphocyte % 27.1 % (19-41); Mean Corp Hgb Conc 33.2 g/dL (32-36); Mean Corpuscular Hgb 32.5 pg (27.0-32.0); Mean Corpuscular Volume 97.7 fL (81-99); Mean Platelet Vol. 10.2 fl (6.2-12.0); Monocyte# 0.55 X10^3/uL; Monocyte% 7.3 % (0-10); NRBC Flagged by Analyzer 0 % (0-5); Neutrophil % 61.5 % (47-70); Platelet Count 228 K/mm3 (150-450); RBC Distribution Width SD 46.4 fl (35.1-43.9); Red Blood Count 3.88 M/mm3 (4.2-5.4); White Blood Count 7.5 K/mm3 (4.4-11.0)
[2020-10-14 10:47] LABS: D-Dimer Quantitative (DVT/PE) 0.79 FEU/ug/m (0.27-0.49)
[2020-10-14 10:50] LABS: BNP,B-Type NATRIURETIC PEPTIDE 114.8 pg/mL (0-100)
[2020-10-14 10:54] LABS: Vitamin D,25 Hydroxy 32.8 ng/mL
[2020-10-14 11:10] LABS: ALB/GLOB Ratio 0.9 RATIO (0.9-2.4); AST(SGOT) 16 U/L (15-37); Alanine Aminotransfer ALT/SGPT 21 U/L (13-56); Albumin, Serum 3.3 g/dL (3.2-5.0); Alkaline Phosphatase 84 U/L (45-117); Anion Gap 7 (5-15); BUN 19 mg/dL (7-18); BUN/Creat Ratio 20.4 RATIO (10-20); Calcium,Total 9.3 mg/dL (8.5-10.1); Chloride 105 mmol/L (98-107); Creatinine, Serum 0.93 mg/dL (0.55-1.02); EST Glomerular Filtration Rate 62 mL/min (>60); Est Glom Filt Rate - Afr Amer 75 mL/min (>60); Globulin 3.6 g/dL (2.2-4.2); Glucose 204 mg/dL (74-106); Potassium 3.9 mmol/L (3.5-5.1); Protein, Total 6.9 g/dL (6.4-8.2); Sodium Level 138 mmol/L (136-145); Thyroid Stim Hormone (TSH) 0.42 uIU/mL (0.358-3.74)
== END ==
PROVIDERS: PCP Nurse Practitioner; Referring Provider Nurse Practitioner; Visit Provider Nurse Practitioner
DX: R60.0 Localized edema (principal); R06.02 Shortness of breath; E11.9 Type 2 diabetes mellitus without complications; E55.9 Vitamin D deficiency, unspecified
CPT/HCPCS: 36415; 71046; 80053; 82306; 83036; 83880; 84443; 85025; 85379; 93970

== ENCOUNTER → 2020-10-21 15:39 | Outpatient (CLI) | payer MEDICARE, OTHER, SELFPAY ==
[2020-08-19 17:19] VITALS: BMI 41.9
--- NOTE | 2020-10-21 15:42 | CT_ITS ---
STUDY: CTA CHEST REASON FOR EXAM: Female, 80 years old. SOB, HAVING LEG SWELLING. COVID IN NOV RADIATION DOSAGE (If Supplied By Facility): CTDIvol = ( 10.74 ) mGy, DLP = ( 428.86 ) mGycm TECHNIQUE: The examination was performed with the intravenous administration of IV 100mL Isovue-370. Post-processing of the angiographic images was performed, with multiplanar reformation and 3D reconstruction. Individualized dose optimization techniques were used for this CT. COMPARISON: None. FINDINGS: Normal enhancement of the main pulmonary artery and right and left pulmonary arteries. Normal enhancement of the bilateral peripheral pulmonary arteries. There is no demonstrated pulmonary embolism. Normal thoracic aorta and visualized great vessels. There is no demonstrated aortic dissection. Normal heart and pericardium. Normal mediastinum. Normal hilar regions. Normal visualized trachea and bronchi. The lungs are hyperaerated. Probable bilateral granulomas. Mild patchy groundglass densities bilaterally.. Probable left upper lobe scarring. Normal pleura. Normal chest wall structures. Degenerative vertebral changes. Nonobstructive left renal stone. CT/CTA Chest W/WO Contrast IMPRESSION: No demonstrated pulmonary embolism or arterial dissection. The lungs are hyperaerated. Probable bilateral granulomas. Mild patchy groundglass densities bilaterally.. Probable left upper lobe scarring. Electronically Signed: Bob Hidalgo DO at 23:17 EST Tel [phone], Service support ,
== END ==
PROVIDERS: PCP Nurse Practitioner; Referring Provider Nurse Practitioner; Visit Provider Nurse Practitioner
DX: R60.0 Localized edema (principal)
CPT/HCPCS: 71275; Q9967

== ENCOUNTER 2020-12-10 16:24 | Outpatient (RCR) | payer MEDICARE, OTHER, SELFPAY ==
[2020-08-19 17:19] VITALS: BMI 41.9
[2020-12-10] MEDS: COVID-19 VACC, MRNA(PFIZER)/PF 30 MCG/0.3 ML SYRINGE IM (15:46)
[2020-12-31] MEDS: COVID-19 VACC, MRNA(PFIZER)/PF 30 MCG/0.3 ML SYRINGE IM (15:29)
== END 2021-03-09 23:59 ==
LOC: IMMUN 16:24
PROVIDERS: PCP Nurse Practitioner; Referring Provider Family Medicine; Visit Provider Family Medicine
DX: Z23 Encounter for immunization (principal)
CPT/HCPCS: 0001A; 0002A; 91300

== ENCOUNTER → 2021-03-29 15:05 | Outpatient (CLI) | payer MEDICARE, OTHER, SELFPAY ==
[2020-08-19 17:19] VITALS: BMI 41.9
--- NOTE | 2021-03-29 15:07 | CT_ITS ---
INDICATION: COPD,DYSPNEA,INTERSTITIAL PULMONARY DISEASE EXAMINATION: CT Chest W/O Contrast Injection TECHNIQUE: Helically acquired images were obtained of the chest without IV contrast. A radiation dose optimization technique was used for this scan. COMPARISON: 10/21/2020. FINDINGS: Lungs: 6 mm calcified granuloma in the left lung base. Scarring in the left upper lobe. Stable 1 cm round opacity in the right middle lobe (image 55, series 4) adjacent to the pleural surface with a comet tail sign. Mediastinum: The cardiomediastinal silhouette is not enlarged. No mediastinal, hilar or axillary adenopathy. Moderate aortic arch and coronary artery calcifications. Pleura: Unremarkable Bones/Soft tissues: There are diffuse degenerative changes of the spine. Upper abdomen: No visualized abnormalities in the upper abdomen. CT/Chest without Contrast IMPRESSION: Stable 1 cm round opacity in the right middle lobe when compared to most recent prior on 10/21/2020. This could represent rounded atelectasis versus a pulmonary nodule. Recommend additional follow-up Chest CT in 3 months. No other acute findings. Electronically Signed: Jose Woodard MD at 23:16 EDT Tel , Service support ,
== END ==
PROVIDERS: PCP Nurse Practitioner; Referring Provider Internal Medicine Pulmonary Disease; Visit Provider Internal Medicine Pulmonary Disease
DX: J44.9 Chronic obstructive pulmonary disease, unspecified (principal); J84.9 Interstitial pulmonary disease, unspecified
CPT/HCPCS: 71250

== ENCOUNTER → 2021-07-21 15:43 | Outpatient (CLI) | payer MEDICARE, OTHER, SELFPAY ==
[2021-07-21 17:36] LABS: Hematocrit 41.1 % (37-47); Hemoglobin 13.4 g/dL (12.0-15.0)
[2021-07-21 18:09] LABS: ALB/GLOB Ratio 0.9 RATIO (0.9-2.4); AST(SGOT) 15 U/L (15-37); Alanine Aminotransfer ALT/SGPT 27 U/L (13-56); Albumin, Serum 3.4 g/dL (3.2-5.0); Alkaline Phosphatase 73 U/L (45-117); Anion Gap 6 (5-15); BUN 20 mg/dL (7-18); BUN/Creat Ratio 18.3 RATIO (10-20); Calcium,Total 9.3 mg/dL (8.5-10.1); Chloride 105 mmol/L (98-107); Creatinine, Serum 1.09 mg/dL (0.55-1.02); EST Glomerular Filtration Rate 52 mL/min (>60); Est Glom Filt Rate - Afr Amer 62 mL/min (>60); Globulin 3.8 g/dL (2.2-4.2); Glucose 131 mg/dL (74-106); Potassium 4.2 mmol/L (3.5-5.1); Protein, Total 7.2 g/dL (6.4-8.2); Sodium Level 140 mmol/L (136-145)
== END ==
PROVIDERS: PCP Nurse Practitioner; Referring Provider Internal Medicine Pulmonary Disease; Visit Provider Internal Medicine Pulmonary Disease
DX: J44.9 Chronic obstructive pulmonary disease, unspecified (principal)
CPT/HCPCS: 36415; 80053; 85014; 85018

== ENCOUNTER 2021-12-23 15:32 | Outpatient (CLI) | payer MEDICARE, OTHER, SELFPAY ==
--- NOTE | 2021-12-23 15:35 | BI_ITS ---
MAMMOGRAPHY - BILATERAL SCREENING REASON FOR EXAM: Female, 81 years old. Routine annual screening examination. PERTINENT HISTORY: Non-contributory. TECHNIQUE: Digital bilateral breast herve (3D mammographic acquisition) in the CC and MLO projections. 2-D mediolateral oblique (MLO) and craniocaudad (CC) views of both breasts were obtained. CAD: Full Field Digital Mammography with Computer Added Detection was performed. COMPARISON: Comparison is made with prior study 07/10/2020 and 12/11/2018. FINDINGS: Breast Composition: The breasts are heterogeneously dense, which may obscure small masses. There are no dominant masses or suspicious calcifications. No other significant abnormalities are identified. There has been no significant change since the prior study. BI/SCRN MAMM (CAD)W/HERVE BILAT IMPRESSION: Stable bilateral screening mammogram. Yearly follow-up mammogram recommended. (A) ASSESSMENT CATEGORY: BIRADS Category 1: Negative. A letter regarding these results will be sent to the patient by the facility within 30 days. Approximately 10% of breast cancers are not detected by mammography. A normal mammogram should not delay biopsy of a clinically suspicious abnormality. [id number] Electronically Signed: Keenan Perez MD at 8:14 EDT ,
--- NOTE | 2021-12-23 15:40 | BD_ITS ---
STUDY: DUAL ENERGY X-RAY ABSORPTIOMETRY / DXA REASON FOR EXAM: Female, 81 years old. M85.89. Patient is postmenopausal. TECHNIQUE: Bone Mineral Density (BMD) measurements of lumbar spine and bilateral hips were obtained. COMPARISON: Comparison is made with prior study dated 12/11/2018. FINDINGS: Lumbar Spine (L1-L4): g/cm2 (0.682) / T-score (-3.2) / Z-score (-0.6) Findings are suggestive of osteoporosis with a high fracture risk. Left Femur Total: g/cm2 (0.868) / T-score (-0.6) / Z-score (1.4) Left Femoral Neck: g/cm2 (0.647) / T-score (-1.8) / Z-score (0.5) Right Femur Total: g/cm2 (0.812) / T-score (-1.1) / Z-score (1.0) Right Femoral Neck: g/cm2 (0.603) / T-score (-2.2) / Z-score (0.1) The T-Scores on the most recent prior examination were: Lumbar Spine (L1-L4): There has been worsening of bone density since the previous examination. Left Femur Total: which represents an improvement of 0.9%. Right Femur Total: which represents a worsening of 1.8%. BD/Dexa Bone Density Study IMPRESSION: The patient is considered osteoporotic as outlined below according to World Allan Organization (WHO) criteria with a high fracture risk. There has been worsening of bone density since the previous examination. Reference Information: The T-score is the number of standard deviations above or below the standard which is normal for young adults at their peak bone mineral density. The World Health Organization (WHO) interprets the T-scores as follows: Above -1 Normal bone density Between -1 and -2.5 Osteopenia Equal to / or below -2.5 Osteoporosis As a practical clinical guideline, osteopenia may be graded as follows: Mild -1 through -1.5 Moderate -1.6 through -2.0 Severe -2.1 through -2.4 The Z-score is the number of standard deviations above or below age-matched controls. A Z-score of less than -1.5 would be considered abnormal. References: 1. NIH Osteoporosis and Related Bone Diseases www osteo.org 2. International Society for Clinical Densitometry www iscd.org 3. National Osteoporosis Foundation www nof.org Electronically Signed: Keenan Perez MD at 9:11 EDT ,
== END 2021-12-23 23:59 | disposition home or self-care (01) ==
LOC: OPBD 15:33
PROVIDERS: PCP Nurse Practitioner; Visit Provider Nurse Practitioner
DX: Z12.31 Encounter for screening mammogram for malignant neoplasm of breast (principal); M85.80 Other specified disorders of bone density and structure, unspecified site; Z78.0 Asymptomatic menopausal state
CPT/HCPCS: 77063; 77067; 77080

== ENCOUNTER 2022-08-31 13:15 | Outpatient (CLI) | payer MEDICARE, OTHER, SELFPAY ==
--- NOTE | 2022-08-31 13:18 | CT_ITS ---
INDICATION: U07.1 EXAMINATION: CT Chest W/O Contrast Injection TECHNIQUE: Helically acquired images were obtained of the chest without IV contrast. A radiation dose optimization technique was used for this scan. COMPARISON: 03/29/2021. FINDINGS: Lungs: 6 mm calcified granuloma in the left lung base. Scarring in the left upper lobe. Stable 1.2 cm round opacity in the right middle lobe (image 55, series 4) adjacent to the pleural surface with a comet tail sign. Mediastinum: The cardiomediastinal silhouette is not enlarged. No mediastinal, hilar or axillary adenopathy. Moderate aortic arch and coronary artery calcifications. Pleura: Unremarkable Bones/Soft tissues: There are diffuse degenerative changes of the spine. Upper abdomen: No visualized abnormalities in the upper abdomen. CT/Chest without Contrast IMPRESSION: Stable 1.2 cm round opacity in the right middle lobe since early 2020. This most likely represents rounded atelectasis. No further follow-up necessary. No other acute findings. Electronically Signed: Jose Woodard MD at 23:56 EST ,
== END 2022-08-31 23:59 | disposition home or self-care (01) ==
LOC: CT 13:16
PROVIDERS: PCP Nurse Practitioner Family; Referring Provider Internal Medicine Pulmonary Disease; Visit Provider Internal Medicine Pulmonary Disease
DX: U07.1 COVID-19 (principal)
CPT/HCPCS: 71250

== ENCOUNTER → 2022-09-09 | Outpatient (CLI) | payer MEDICARE, OTHER, SELFPAY ==
--- NOTE | 2022-09-09 12:53 | ECHOCS_ITS ---
Reason For Study: Murmur Procedure This was a 2D Doppler, Color Flow transthoracic echocardiogram. Technically difficult due to patient body habitus, contrast injection performed. Exam performed in department. Left Ventricle Normal LV size. The estimated ejection fraction is 60 %. Normal diastology for age. No regional wall motion abnormalities noted. Right Ventricle Normal RV size. Normal systolic function. Atria Normal left atrium. Normal right atrium. No doppler evidence for ASD. Mitral Valve There is no mitral valve stenosis. Trivial mitral valve insufficiency. Tricuspid Valve There is no tricuspid stenosis. Trivial tricuspid valve insufficiency. Pulmonary artery systolic pressure is 55 mmHg. Aortic Valve Mild diffuse aortic valve thickening. While the valve appears to be opening fairly well on 2D evaluation, velocity jimenez there appears to be mild to moderate aortic stenosis. Mild to moderate aortic stenosis. Trivial aortic valve insufficiency. Pulmonic Valve There is no pulmonic valvular stenosis. No pulmonic valve insufficiency. Great Vessels Normal aortic root. Pericardium/Pleural No pericardial effusion. Medication 20 gauge I.V. with prn adaptor inserted into right arm. Diluted definity 4ml given slow IV push to enhance endocardial definition. MMode/2D Measurements & Calculations LVIDd: 5.0 cm IVSd: 1.2 cm LVOT diam: 2.1 cm LVIDs: 3.3 cm LVPWd: 1.2 cm RVDd: 3.9 cm FS: 35.1 % LVOT area: 3.4 cm2 Ao root diam: 3.5 cm LAV(MOD-bp): 66.0 ml LA A4 area: 23.0 cm2 LA dimension: 5.2 cm LAV(MOD-bp) Indexed: 32.3 ml/m2 LAV(MOD-sp2): 53.0 ml LAV(MOD-sp4): 72.0 ml RA A4 area: 16.0 cm2 Time Measurements MV dec time: 0.18 sec Doppler Measurements & Calculations MV E max scotty: 99.6 cm/sec Lat Peak E' Scotty: 10.7 cm/sec Med Peak E' Scotty: 6.9 cm/sec MV A max scotty: 80.0 cm/sec E/E' lat: 9.3 E/E' med: 14.5 MV E/A: 1.2 MV V2 max: 127.5 cm/sec MV P1/2t max scotty: 128.6 cm/sec Ao V2 max: 310.7 cm/sec MV max P.5 mmHg MV P1/2t: 71.2 msec Ao max P.1 mmHg MV V2 mean: 66.4 cm/sec MV dec slope: 529.1 cm/sec2 Ao V2 mean: 205.1 cm/sec MV mean P.1 mmHg Ao mean P.5 mmHg MV V2 VTI: 38.7 cm MVA(P1/2t): 3.1 cm2 Ao V2 VTI: 78.7 cm MVA(VTI): 2.5 cm2 AV (velocity ratio): 0.36 ANNETTE(I,D): 1.2 cm2 ANNETTE(V,D): 1.2 cm2 LV V1 max: 111.1 cm/sec MR max scotty: 601.9 cm/sec SV(LVOT): 97.7 ml LV V1 max P.0 mmHg MR max P.9 mmHg LV V1 mean P.7 mmHg LV V1 mean: 76.1 cm/sec LV V1 VTI: 28.5 cm PA V2 max: 112.1 cm/sec TR max scotty: 350.5 cm/sec PA V2 mean: 79.8 cm/sec TR max P.1 mmHg ECHO/Echo Complete W/ Contrast Interpretation Summary The estimated ejection fraction is 60 %. Trivial mitral valve insufficiency. Mild to moderate aortic stenosis. Trivial aortic valve insufficiency. Ordering Physician: Kathy Clark Performed By: Felix March RCS
== END | disposition home or self-care (01) ==
LOC: CVS 12:52
PROVIDERS: PCP Nurse Practitioner Family; Visit Provider Nurse Practitioner Family
DX: R01.1 Cardiac murmur, unspecified (principal)
CPT/HCPCS: 93306; Q9957; A4216; C8929

== ENCOUNTER → 2022-09-14 | Outpatient (CLI) | payer MEDICARE, OTHER, SELFPAY ==
--- NOTE | 2022-09-14 12:00 | PET_ITS ---
EXAMINATION: FDG PET-CT INDICATIONS: An 82-year-old female with history of pulmonary nodularity. COMPARISON EXAMINATION: CT of the chest report dated 08/31/22 INDEX LESION SIZE SUV INTERPRETATION Right lung, right middle lobe 11.5-mm 3.6 Fulfills quantitative criteria for viable neoplasm, histopathologic analysis is recommended NON-INDEX LESION SIZE SUV INTERPRETATION Right and left lobe thyroid colloid Correlation with thyroid ultrasound may be of benefit, may represent thyroid autonomy, goiter formation TECHNIQUE: Following the intravenous administration of 13.14 mCi of F-18 deoxyglucose via the right hand, multiplanar image acquisitions of the neck, chest, abdomen and pelvis to level of mid thigh, obtained at one hour post radiopharmaceutical administration contemporaneously interpreted with the current CT of the neck, chest, abdomen and pelvis, to level of mid thigh, dated 09/14/[address] of the chest report dated 08/31/22 reveals: BLOOD GLUCOSE LEVEL:?? 72 mg/dl?HEIGHT:?61 inches?WEIGHT: 240 lbs. FINDINGS: Head/Neck: There is no evidence of abnormal increased glucose metabolism in the pharyngeal mucosal space, parapharyngeal space, bilateral-lateral and anterior neck, hypopharynx and distribution of the laryngeal structures. Prominent radiopharmaceutical concentration is noted in both lobes of a u-shaped thyroid gland. The visualized portion of the cerebral cortical-subcortical structures demonstrate symmetric and preserved glucose metabolism. CHEST: Increased FDG concentration is noted in the right lower anteromedial lung field, right middle lobe. The calculated maximal standard uptake value is 3.6. The maximal axial diameter of the metabolic, morphologic abnormality is 11.5-mm. Prominent radiopharmaceutical concentration is identified in the left ventricular myocardium commensurate with the [place]. Prominent uptake is defined in the proximal-distal esophagus consistent with physiologic tracer distribution or activated leukocytes associated with an inflammatory process (esophagitis). Pertinent chest CT findings are as follows. Bilateral axillary soft tissue densities are non-glucose avid. A calcified nodule noted in the left lower lung field, left lower lobe is ametabolic. There is atherosclerotic calcification defined in the thoracic aorta without evidence of dilatation-aneurysm formation. Coronary arterial calcification is observed. Mediastinal soft tissue is ametabolic. Abdomen/Pelvis: Normal physiologic distribution of the radiopharmaceutical is apparent in the hepatic (3.3) and splenic parenchyma, both renal units, bladder and visualized intestinal tract. Diffuse radiopharmaceutical concentration is noted in all four quadrants of the abdomen and pelvis. Distribution of the radiopharmaceutical is noted extending to the rectum-rectal vault. If intraluminal soft tissue mass formation is suspected, correlation with CT of the abdomen and pelvis with oral and intravenous contrast is recommended. (Dobert et al, Journal of Nuclear Medicine, 30:S276, 2003). Pertinent abdomen and pelvis CT findings are as follows. Colonic diverticulosis is noted without evidence of diverticulitis. There is atherosclerotic calcification defined in the abdominal aorta without evidence of dilatation-aneurysm formation. Pelvic arterial calcification is observed. The gallbladder is surgically absent. Right-left inguinal soft tissue densities are non-glucose avid. Skeletal: Degenerative changes are noted in the cervical, thoracic and lumbar spine without evidence of increased radiopharmaceutical concentration. There are no well-defined sclerotic-lytic changes manifest on review of the appendicular-axial skeletal structures. There is evidence of vertebral hemangioma formation at the level of the tenth thoracic vertebra. PET/PET/CT Tumor Base -Thigh Init IMPRESSION: 1. Facilitated FDG uptake noted in the right lower anteromedial lung field, right middle lobe fulfills quantitative criteria for viable neoplasm with single point technique. Definitive histopathologic analysis is recommended. (Melissa et al, Annals of Internal Medicine, 138:724, 2003). 2. Increased FDG concentration noted in the left-right thyroid gland may represent a component of thyroid autonomy, goiter formation. Correlation with thyroid ultrasound may be of benefit. (Yasuda et al, Radiology, 207:775, 1998). Electronic Signature Azael Loya D.O. Accurate Quantification of SUVs for this report are calculated using the exclusive [employer]. ([place] Patent No. [id number] [id number] B2 [phone] [place] patent [phone]). Standardization and correction of the FDG SUV metric via [employer] technology allow for vendor non-specific objective quantitative examination comparison and optimization of the sensitivity and specificity of the FDG PET-CT examination. Electronically Signed: Azael Loya, at 23:09 EST ,
== END | disposition home or self-care (01) ==
LOC: ONC 11:49
PROVIDERS: PCP Nurse Practitioner Family; Referring Provider Nurse Practitioner Family; Visit Provider Nurse Practitioner Family
DX: R91.1 Solitary pulmonary nodule (principal); Z87.891 Personal history of nicotine dependence
CPT/HCPCS: 78815; A9552

== ENCOUNTER 2022-09-24 08:16 | Emergency (ER) | payer MEDICARE, OTHER, SELFPAY ==
[2022-09-24 08:17] VITALS: BP 166/74; PULSE 62; RESP 20; TEMP 36.2; O2SAT 93; BMI 45.3
--- NOTE | 2022-09-24 08:37 | CT_ITS ---
STUDY: CT LUMBAR SPINE WITHOUT CONTRAST REASON FOR EXAM: Female, 82 years old. Back pain RADIATION DOSAGE (If Supplied By Facility): CTDIvol = ( 49.42 ) mGy, DLP = ( 1386.75 ) mGycm TECHNIQUE: The patient was scanned in a multi detector CT scanner. High resolution transaxial imaging was performed. Images were obtained from T12 to sacrum. Sagittal and coronal images were reconstructed. Individualized dose optimization techniques were used for this CT. COMPARISON: Limited comparison to CT scan PET scan September 14, 2022 FINDINGS: Normal lumbar lordosis. There is no substantial scoliosis. Normal vertebrae of the lumbar spine. L1-2: There is a broad disc bulge mild neural foramina narrowing facet arthropathy mild central stenosis. L2-3: There is severe disc space narrowing and broad disc osteophyte protrusion with narrowing of the canal with moderate to severe neural foramina narrowing and moderate central stenosis. See image 49 sagittal views. L3-4: There is a broad disc bulge moderate neural foramina narrowing minimal central stenosis L4-5: There is a broad disc bulge moderate neural foramina narrowing there is facet arthropathy with moderate central stenosis. There is a age indeterminate fracture of the inferior lateral aspect of L4 with slight compression injury of the inferior endplate and a fractured appearance of the lateral corner aspect of the vertebral body. Allowing for the substantial difference in technique of the PET scan this is suggested on the prior study but difficult to visualize. L5-S1: There is a broad disc bulge. There is mild neural foramina narrowing no significant central stenosis. There is facet arthropathy. There is minimal degenerative change in the SI joints. The visualized atherosclerotic disease of the aorta. Normal visualized paraspinous soft tissue structures. CT/Spine Lumbar without Contrast IMPRESSION: Age-indeterminate likely nonacute but potentially recent fracture of the left lateral inferior endplate and corner of the left side of L4 without significant loss of height. Recommend correlation with fall or trauma history. It should be noted that although the bones appear somewhat osteopenic there is no definitive visualized erosive or sclerotic lesion associated with this fracture. Advanced degenerative change at the level of L2 on 3 with a broad disc protrusion. Recommend consideration for follow-up MRI which may be helpful for further characterization. Electronically Signed: Christina Navarrete MD at 10:16 EST ,
--- NOTE | 2022-09-24 08:38 | EDS_ITS ---
HPI History of Present Illness Chief Complaint: Back Informant: patient and family Narrative Narrative: Present increasing left lower back pain that radiates down her whole left leg for the past 2 days. Denies any trauma any new activities. Has had similar symptoms in the past however would not last for couple days. Took Tylenol at 4 AM. No relief. She ambulates with a cane sometimes a wheeled walker if needed outside per daughter. Reports never had this evaluated by healthcare provider, never discussed this with her PCP. She states she is doing normal activities prior to symptoms occurring. Patient is a diabetic. His sugars are well controlled. Denies history of gastric ulcers or kidney injury.Denies any loss of bowel or bladder control. Prior similar symptoms: Yes and With Prior Back Pain PFSH PFSH Home Medications albuterol sulfate 90 mcg/actuation aerosol inhaler (ProAir HFA) 1 - 2 puff inhalation Q6H PRN PRN Sob &/Or Wheezing 01/14/19 [History Last Taken 5 Days Ago ~08/14/20] atenolol 50 mg tablet 50 mg PO BID BP 01/14/19 [History Last Taken 08/19/20 08:00] budesonide-formoterol HFA 160 mcg-4.5 mcg/actuation aerosol inhaler (Symbicort) 2 puff inhalation BID COPD 01/14/19 [History Last Taken 5 Days Ago ~08/14/20] insulin NPH isoph U-100 human 100 unit/mL subcutaneous suspension (Novolin N NPH U-100 Insulin isophane) 25 unit SQ BID 01/14/19 [History Last Taken 08/19/20 08:00] insulin glargine 100 unit/mL (3 mL) subcutaneous pen (Lantus Solostar U-100 Insulin) 20 units subcut QHS DM 01/14/19 [History Last Taken 08/17/20] insulin regular human 100 unit/mL injection solution (Novolin R Regular U-100 Insulin) 20 unit subcut BID DM 01/14/19 [History Last Taken 08/19/20 08:00] levothyroxine 150 mcg tablet 150 mcg PO DAILY THYROID 01/14/19 [History Last Taken 01/16/19 08:00] lisinopril 20 mg tablet (Zestril) 20 mg PO DAILY BP 01/14/19 [History Last Taken 08/19/20 08:00] multivitamin with minerals (Multiple Vitamin-Minerals tablet) 1 ea PO DAILY SUPPLEMENT 01/14/19 [History Last Taken 08/19/20 08:00] simvastatin 40 mg tablet 40 mg PO QHS CHOLESTEROL 01/14/19 [History Last Taken 08/17/20] vit C 250 mg-vit E 90 mg-zinc 40 mg-copper 1 pe-qbybwl-kqzpnf capsule (PreserVision AREDS-2) 1 ea PO BID EYE HEALTH 01/14/19 [History Last Taken 08/19/20 08:00] hydrochlorothiazide 25 mg tablet 25 mg PO DAILY BP 08/19/20 [History Last Taken 08/19/20 08:00] acetaminophen 325 mg tablet 650 mg PO Q4H PRN PRN Pain Score 1-3 /Temp>100.7 08/24/20 [Rx Last Taken Unknown] docusate sodium 100 mg capsule (Colace) 100 mg PO DAILY #30 caps 09/24/22 [Rx Last Taken Unknown] gabapentin 300 mg capsule 300 mg PO QHS #30 caps 09/24/22 [Rx Last Taken Unknown] hydrocodone-acetaminophen 5-325mg 5mg-325mg 1 tab PO Q6H PRN pain 3 days #12 tabs 09/24/22 [Rx Last Taken Unknown] Allergy/AdvReac Type Severity Reaction Status Date / Time No Known Allergies Allergy Verified 09/24/22 08:17 Social History Smoking Status: Former smoker ROS ROS ED Constitutional Constitutional ED: Denies chills, fever(s) or sweats Eyes Eyes: Denies change in vision ENT ENT ED: Denies dysphagia or sore throat Cardiovascular Cardiovascular: Denies chest pain, leg edema, palpitations or racing heartbeat Respiratory/Chest Respiratory/Chest: Denies cough, dyspnea or dyspnea on exertion Gastrointestinal Gastrointestinal: Denies abdominal pain, diarrhea, nausea or vomiting Genitourinary Genitourinary ED: Denies dysuria, hematuria or urinary frequency Musculoskeletal Musculoskeletal: Reports back pain; Denies extremity pain or neck pain Integumentary Denies rash or wounds Neurologic Neurologic: Denies headache(s), paresthesias or weakness EXAM Physical Exam Const Vital Signs: 09/24/22 08:17 09/24/22 08:57 09/24/22 11:07 Temperature 97.1 F L Temperature Source Temporal Pulse Rate 62 65 68 Respiratory Rate 20 H 18 18 Blood Pressure 166/74 H 175/50 H 196/59 H Blood Pressure Mean 104 91 Pulse Ox 93 91 Oxygen Delivery Method Room Air Room Air Positive well nourished and well developed General Appearance ED: well developed and NAD HEENT Reports moist mucous membranes normocephalic and atraumatic Eyes PERRL, EOMs intact bilaterally and conjunctivae normal General Eye ED: Yes normal appearance of both eyes Neck no lymphadenopathy and supple General: Negative for tenderness Chest Wall Chest: Negative for tenderness Resp normal respiratory effort and normal air movement Effort and Inspection: symmetric chest movement; Negative for respiratory distress Cardio regular rate, regular rhythm and no murmurs Peripheral Pulses: pulses 2+ throughout GI normal to inspection, nondistended, normoactive bowel sounds and non-tender Palpation: Negative for guarding or rebound tenderness present Back/Spine no CVA tenderness Back/Spine Narrative: Left lower lumbar tenderness. Straight leg test negative for radicular symptoms however pain in the lower back. 1+ patellar reflex bilaterally. Extremity normal to inspection General Extremety ED: Negative for edema or tenderness General Extremity: Negative for edema Neuro oriented x3 and no sensory deficits noted Sensorium / Orientation: awake and alert Skin no rashes or lesions noted and no wounds MDM MDM MDM Narrative Medical decision making narrative: Patient presenting lumbar radiculopathy symptoms. No cauda equina symptoms.Patient started on gabapentin and hydrocodone for which she is tolerated in the past. Lumbar CT obtained noting age-indeterminate fracture at L4 with no significant loss of height. There is also central disc bulging noted. Patient was feeling better on reevaluation. She is able ambulate with a walker. She will be continued on gabapentin and short prescription for hydrocodone and Colace. She is given follow-up with pain management outpatient further treatment options. Radiography Diagnostic Testing: Clinical Impression(s) from Imaging Studies Lumbar Spine CT 09/24/22 08:37 IMPRESSION: Age-indeterminate likely nonacute but potentially recent fracture of the left lateral inferior endplate and corner of the left side of L4 without significant loss of height. Recommend correlation with fall or trauma history. It should be noted that although the bones appear somewhat osteopenic there is no definitive visualized erosive or sclerotic lesion associated with this fracture. Advanced degenerative change at the level of L2 on 3 with a broad disc protrusion. Recommend consideration for follow-up MRI which may be helpful for further characterization. Electronically Signed: Christina Navarrete MD at 10:16 EST , Discharge Plan Triage Chief Complaint: Back ED Provider: Karl Scott Dx/Rx/DC Orders Clinical Impression: Sciatica, Closed L4 vertebral fracture Instructions: Compression Fx, ED Sciatica Prescriptions: New hydrocodone-acetaminophen 5-325 mg tablet 1 tab PO Q6H PRN (Reason: pain) 3 Days Qty: 12 0RF docusate sodium [Colace] 100 mg capsule 100 mg PO DAILY Qty: 30 0RF gabapentin 300 mg capsule 300 mg PO QHS Qty: 30 0RF No Action lisinopril [Zestril] 20 MG tablet 20 mg PO DAILY simvastatin 40 MG tablet 40 mg PO QHS levothyroxine 150 MCG tablet 150 mcg PO DAILY multivitamin with minerals [Multiple Vitamin-Minerals] 1 EACH tablet 1 ea PO DAILY albuterol sulfate [ProAir HFA] 1 PUFF inhaler 1 - 2 puff inhalation Q6H PRN PRN (Reason: Sob &/Or Wheezing) atenolol 50 MG tablet 50 mg PO BID budesonide-formoterol [Symbicort] 1 INHALER inhaler 2 puff inhalation BID vit C,R-El-lwcmo-lutein-zeaxan [PreserVision AREDS-2] 1 EACH capsule 1 ea PO BID insulin regular human [Novolin R Regular U-100 Insuln] 100 UNIT/ML solution 20 unit subcut BID insulin NPH isoph U-100 human [Novolin N NPH U-100 Insulin] 100 UNIT/ML suspension 25 unit SQ BID insulin glargine [Lantus Solostar U-100 Insulin] 100 UNITS/ML insulin pen 20 units subcut QHS hydrochlorothiazide 25 MG tablet 25 mg PO DAILY acetaminophen 325 MG tablet 650 mg PO Q4H PRN PRN (Reason: Pain Score 1-3 /Temp>100.7) 0RF Primary Care Provider: Kathy Clark Referrals: Malik Perez DO [Non-Staff] - 3-5 Days Kathy Clark, SENIOR SAFETY MANAGEMENT CONSULTANT-[facility] [Primary Care Provider] - Activity Restrictions/Additional Instructions: Age-indeterminate L4 compression fracture. Disc hernia at L4-L5. Take gabapentin as prescribed. Hydrocodone and stool softeners as needed. Use your walker for stability. Disposition Disposition: Home, Self Care Discharge Date/Time: 09/24/22 11:25
[2022-09-24] MEDS: Gabapentin 300 MG Capsule PO (08:55)
[2022-09-24] MEDS: HYDROcodone Bitartrate/Apap 5/325 Tablet PO (08:56)
[2022-09-24 08:57] VITALS: BP 175/50; PULSE 65; RESP 18; O2SAT 91
[2022-09-24 11:07] VITALS: BP 196/59; PULSE 68; RESP 18
== END 2022-09-24 11:25 | disposition home or self-care (01) ==
PROVIDERS: Emergency Provider Emergency Medicine; PCP Nurse Practitioner Family; Visit Provider Emergency Medicine
DX: S32.049A Unspecified fracture of fourth lumbar vertebra, initial encounter for closed fracture (principal); M54.30 Sciatica, unspecified side; Z87.891 Personal history of nicotine dependence; X58.XXXA Exposure to other specified factors, initial encounter
CPT/HCPCS: 72131; 99283

== ENCOUNTER → 2023-01-11 | Outpatient (CLI) | payer MEDICARE, OTHER, SELFPAY ==
--- NOTE | 2023-01-11 12:55 | BI_ITS ---
MAMMOGRAPHY - BILATERAL SCREENING 3-D TOMOSYNTHESIS REASON FOR EXAM: Female, 82 years old. Routine screening PERTINENT HISTORY: No significant family history. TECHNIQUE: 2-D mammograms and 3-D Tomosynthesis of the breast (s) were performed. CAD was performed. COMPARISON: 12/23/2021 FINDINGS: The breast composition is heterogeneously dense that can obscure small breast masses. Scattered benign calcifications are seen. No dense spiculated masses or suspicious microcalcifications are identified. No architectural distortion is identified. There is no skin thickening or retraction. There has been no significant change since the prior study. BI/SCRN MAMM (CAD)W/HERVE BILAT IMPRESSION: No mammographic signs of malignancy. Routine yearly mammograms recommended. ASSESSMENT CATEGORY: BIRADS Category 2: Benign. A letter regarding these results will be sent to the patient by the facility within 30 days. FOLLOW UP RECOMMENDATION: Yearly follow up mammogram recommended. (A) Approximately 10% of breast cancers are not detected by mammography. A normal mammogram should not delay biopsy of a clinically suspicious abnormality. Electronically Signed: Oleg Mustafa MD at 14:00 EDT ,
== END | disposition home or self-care (01) ==
PROVIDERS: PCP Nurse Practitioner Family; Referring Provider Nurse Practitioner Family; Visit Provider Nurse Practitioner Family
DX: Z12.31 Encounter for screening mammogram for malignant neoplasm of breast (principal)
CPT/HCPCS: 77063; 77067

== ENCOUNTER 2023-05-16 15:22 | Inpatient (IN) | payer MEDICARE, OTHER, SELFPAY ==
[2023-05-16] VITALS (29 sets, daily range): BP systolic 77–150; BP diastolic 40–89; PULSE 65–104; RESP 18–39; TEMP 36.4–37.8; O2SAT 88–99; BMI 45.1; BMI 44.6
--- NOTE | 2023-05-16 16:43 | EKG12_ITS ---
Test Reason : Blood Pressure : / mmHG Vent. Rate : 102 BPM Atrial Rate : 102 BPM P-R Int : 190 ms QRS Dur : 090 ms QT Int : 330 ms P-R-T Axes : 063 -46 088 degrees QTc Int : 430 ms Sinus tachycardia Left axis deviation Left ventricular hypertrophy with repolarization abnormality ( R in aVL , [place] product ) Cannot rule out Septal infarct (cited on or before 17-APR-2006) Abnormal ECG Confirmed by CESAR KEARNEY ([id number]), order editor SHEY MACIAS ([id number]) on 05/18/2023 11:18:52 AM Referred By: Confirmed By:CESAR KEARNEY
--- NOTE | 2023-05-16 16:54 | EDS_ITS ---
HPI History of Present Illness Chief Complaint: Hyperglycemia Informant: patient and family Narrative Narrative: Patient had a high blood sugar 550 today, she feels poorly with myalgias, nausea and some occasional nonbloody nonbilious emesis, no abdominal or chest pains. No dyspnea. No cough or congestion. She said this morning she checked her blood sugar and it was around 100 and she felt okay then. Family also adds that she felt like this yesterday, but not the whole day, patient confirms this. She states her blood sugar went up to 165 which was a little high for her at 1 point during yesterday but when her blood sugar was lower than this she was feeling poorly as well. She admits to urinary frequency, increased thirst, as well as some burning throughout my whole body when I urinate. She lives alone. She is on Farxiga as well as insulins, no oral diabetes medications. [facility] Medical History (Updated 05/16/23 @ 18:[address] Lamont Bourgeois MD) Compression fracture COPD (chronic obstructive pulmonary disease) Diabetes mellitus Hyperlipidemia Hypothyroidism Personal history of colonic polyps Home Medications albuterol sulfate 90 mcg/actuation aerosol inhaler (ProAir HFA) 1 - 2 puff inhalation Q6H PRN PRN Sob &/Or Wheezing 01/14/19 [History Last Taken 5 Days Ago ~08/14/20] atenolol 50 mg tablet 50 mg PO BID BP 01/14/19 [History Last Taken 08/19/20 08:00] budesonide-formoterol HFA 160 mcg-4.5 mcg/actuation aerosol inhaler (Symbicort) 2 puff inhalation BID COPD 01/14/19 [History Last Taken 5 Days Ago ~08/14/20] insulin NPH isoph U-100 human 100 unit/mL subcutaneous suspension (Novolin N NPH U-100 Insulin isophane) 25 unit SQ BID 01/14/19 [History Last Taken 08/19/20 08:00] insulin glargine 100 unit/mL (3 mL) subcutaneous pen (Lantus Solostar U-100 Insulin) 20 units subcut QHS DM 01/14/19 [History Last Taken 08/17/20] insulin regular human 100 unit/mL injection solution (Novolin R Regular U-100 Insulin) 20 unit subcut BID DM 01/14/19 [History Last Taken 08/19/20 08:00] levothyroxine 150 mcg tablet 150 mcg PO DAILY THYROID 01/14/19 [History Last Taken 01/16/19 08:00] lisinopril 20 mg tablet (Zestril) 20 mg PO DAILY BP 01/14/19 [History Last Taken 08/19/20 08:00] multivitamin with minerals (Multiple Vitamin-Minerals tablet) 1 ea PO DAILY SUPPLEMENT 01/14/19 [History Last Taken 08/19/20 08:00] simvastatin 40 mg tablet 40 mg PO QHS CHOLESTEROL 01/14/19 [History Last Taken 08/17/20] vit C 250 mg-vit E 90 mg-zinc 40 mg-copper 1 [id number] capsule (PreserVision AREDS-2) 1 ea PO BID EYE HEALTH 01/14/19 [History Last Taken 08/19/20 08:00] hydrochlorothiazide 25 mg tablet 25 mg PO DAILY BP 08/19/20 [History Last Taken 08/19/20 08:00] acetaminophen 325 mg tablet 650 mg (2 x 325 mg) PO Q4H PRN PRN Pain Score 1-3 /Temp>100.7 08/24/20 [Rx Last Taken Unknown] aspirin 81 mg tablet,delayed release (Adult Aspirin Regimen) 81 mg PO DAILY 05/16/23 [History Last Taken Unknown] docusate sodium 100 mg capsule (Colace) 100 mg PO PRN 05/16/23 [History Last Taken Unknown] fluticasone fur. 100 mcg-umeclid 62.5 mcg-vilant 25 mcg inhalat.powder (Trelegy Ellipta) 1 inh inhalation DAILY 05/16/23 [History Last Taken Unknown] Allergy/AdvReac Type Severity Reaction Status Date / Time No Known Allergies Allergy Verified 05/16/23 15:27 Social History Smoking Status: Former smoker ROS ROS ED Constitutional Constitutional ED: Reports body ache(s) and malaise; Denies chills or fever(s) Eyes Eyes: Denies change in vision or diplopia ENT ENT ED: Denies rhinorrhea or sore throat Cardiovascular Cardiovascular: Denies chest pain or palpitations Respiratory/Chest Respiratory/Chest: Denies cough or dyspnea Gastrointestinal Gastrointestinal: Reports diarrhea, nausea, vomiting and other Details: Loose diarrhea, only a couple bouts total in the last 2 days, not watery. No blood or melena. ; Denies abdominal pain Genitourinary Genitourinary ED: Reports dysuria and urinary frequency; Denies hematuria Musculoskeletal Musculoskeletal: Denies back pain or neck pain Integumentary Denies abscess or rash Neurologic Neurologic: Denies headache(s), paresthesias or weakness Psychiatric Psychiatric: Denies anxiety or suicidal thoughts Endocrine Endocrinology: Reports polydipsia and polyuria EXAM Physical Exam Const Vital Signs: 05/16/23 15:25 05/16/23 16:27 05/16/23 17:00 Temperature 97.6 F L 100.1 F H 100.0 F H Temperature Source Temporal Oral Oral Pulse Rate 104 H 101 H 100 Respiratory Rate 20 H 28 H 27 H Respiratory Effort Respiratory Pattern Blood Pressure 150/56 H 108/89 H 102/89 H Blood Pressure Mean 87 95 93 Pulse Ox 93 95 96 Oxygen Delivery Method Room Air Room Air Room Air Oxygen Flow Rate (L/min) 05/16/23 17:26 05/16/23 17:23 05/16/23 17:57 Temperature Temperature Source Pulse Rate 99 95 Respiratory Rate 20 H 24 H Respiratory Effort Short of Breath Respiratory Pattern Tachypnea Blood Pressure 102/89 H 128/51 H Blood Pressure Mean 93 76 Pulse Ox 92 88 Oxygen Delivery Method Room Air Room Air Oxygen Flow Rate (L/min) 05/16/23 17:57 Temperature Temperature Source Pulse Rate Respiratory Rate 32 H Respiratory Effort Respiratory Pattern Blood Pressure Blood Pressure Mean Pulse Ox 94 Oxygen Delivery Method Nasal Cannula Oxygen Flow Rate (L/min) 2 Positive well nourished, well developed and obese General Appearance ED: well developed and NAD Nutritional Appearance: obese HEENT Reports moist mucous membranes normocephalic and atraumatic Eyes PERRL and EOMs intact bilaterally Neck full ROM and supple Resp normal respiratory effort and clear to auscultation bilaterally Cardio regular rate, regular rhythm and no murmurs Rate: other Other Details: Mild tachycardia GI non-tender and non-distended Auscultation: normoactive bowel sounds Palpation: soft Back/Spine no CVA tenderness General Back: other FROM Extremity normal to inspection General Extremety ED: Yes edema; Negative for pulses abnormal or tenderness General Extremity: edema bilateral lower extremity Details: moderate (Symmetric, similar to chronic according to patient); Negative for pulses abnormal Neuro oriented x3, CN's II-XII intact bilaterally and no sensory deficits noted Sensorium / Orientation: awake and alert Motor Exam: strength 5/5 throughout Psych mental status grossly normal Skin no rashes or lesions noted and no wounds MDM MDM MDM Narrative Medical decision making narrative: Patient does have some abnormal EKG changes, which was done as a screening for acute coronary syndrome, given her age and nonspecific symptoms. I was more concerned about a urinary tract infection, which proved to be true on her urinalysis, so I sent that for culture and started Rocephin, she then developed a fever up to 100.0, which was then treated with Tylenol. I suspected a urinary tract infection which she has symptoms of, is causing her hyperglycemia. However with her EKG changes we sent a troponin, and it returned elevated, which is barely and she has an abnormal creatinine. She is not having ongoing chest discomfort or shortness of breath nor has she had any in the last 2 days. She does have an old EKG available for comparison, and it looks different, but it is from 18 years ago. Discussed all this with Dr. Becker. He agrees not treating her as a STEMI, but rather admitting her, cycling troponins, and started her on heparin which we will do. History & Record Review Additional record(s) reviewed:: Prior outpatient record (Few records available, reviewed echocardiogram from 2021) and Prior labs Lab Data Attestation: I reviewed the patient's lab results. Labs: Laboratory Results - last 24 hr 05/16/23 05/16/23 05/16/23 15:40 16:51 17:00 WBC 11.5 H RBC 4.14 L Hgb 13.4 Hct 40.1 MCV 96.9 MCH 32.4 H MCHC 33.4 RDW Std Deviation 44.4 H RDW Coeff of Cynthia 12.5 Plt Count 155 MPV 10.0 Immature Gran % (Auto) 0.400 Neut % (Auto) 85.8 H Lymph % (Auto) 4.6 L [place] % (Auto) 8.8 Eos % (Auto) 0.1 Baso % (Auto) 0.3 Absolute Neuts (auto) 9.8 H Absolute Lymphs (auto) 0.53 L Nucleated RBC % 0 Differential Comment SCANNED Sodium 132 L Potassium 3.7 Chloride 97 L Carbon Dioxide 26.0 Anion Gap 9 BUN 31 H Creatinine 1.71 H Estim Creat Clear Calc 19.80 Est GFR (MDRD) Af Amer 37 L Est GFR (MDRD) Non-Af 31 L BUN/Creatinine Ratio 18.1 Glucose 434 H Calcium 9.4 Troponin I High Sens 144 H* Urine Color Yellow Urine Clarity Clear Urine pH 6.0 Ur Specific [place] 1.010 Urine Protein 30 H Urine Glucose (UA) 1000 H Urine Ketones 5 H Urine Occult Blood 150 H Urine Nitrite Positive H Urine Bilirubin Negative Urine Urobilinogen 1 H Ur Leukocyte Esterase 500 H Urine RBC 0-5 SEEN Urine WBC >100 SEEN Ur Squamous Epith Cells 0 SEEN Urine Bacteria 1+ Urine Mucus 0 SEEN POC Glucose 444 H Rhythm Strip Rhythm Strip: Sinus Rhythm Rate: 100 Ectopy: None EKG Initial EKG: Attestation: I personally reviewed and interpreted this EKG as follows: Interpretation: No Acute Injury Pattern, Sinus Tachycardia, LAFB, S-T Elevation (III only) and S-T Depression (laterally I, aVL) Prior EKG tracings: available for review (04/17/2006) Prior: Changed Management Discussion w/another healthcare provider: Hospitalist and [employer] (cardiolo gy) Discharge Plan Triage Chief Complaint: Hyperglycemia ED Provider: Lamont Bourgeois Dx/Rx/DC Orders Clinical Impression: Urinary tract infection, Hyperglycemia due to diabetes mellitus, Elevated troponin, Acute electrocardiogram changes, CONSTANCE (acute kidney injury) Prescriptions: No Action lisinopril [Zestril] 20 MG tablet 20 mg PO DAILY simvastatin 40 MG tablet 40 mg PO QHS levothyroxine 150 MCG tablet 150 mcg PO DAILY Multiple Vitamin-Minerals 1 EACH tablet 1 ea PO DAILY albuterol sulfate [ProAir HFA] 1 PUFF inhaler 1 - 2 puff inhalation Q6H PRN PRN (Reason: Sob &/Or Wheezing) atenolol 50 MG tablet 50 mg PO BID budesonide-formoterol [Symbicort] 1 INHALER inhaler 2 puff inhalation BID PreserVision AREDS-2 1 EACH capsule 1 ea PO BID Novolin R Regular U100 Insulin 100 UNIT/ML solution 20 unit subcut BID Novolin N NPH U-100 Insulin 100 UNIT/ML suspension 25 unit SQ BID insulin glargine [Lantus Solostar U-100 Insulin] 100 UNITS/ML insulin pen 20 units subcut QHS hydrochlorothiazide 25 MG tablet 25 mg PO DAILY acetaminophen 325 MG tablet 650 mg PO Q4H PRN PRN (Reason: Pain Score 1-3 /Temp>100.7) 0RF docusate sodium [Colace] 100 mg capsule 100 mg PO PRN aspirin [Adult Aspirin Regimen] 81 mg tablet,delayed release (DR/EC) 81 mg PO DAILY Trelegy Ellipta 100-62.5-25 mcg blister with device 1 inh INHALATION DAILY Primary Care Provider: Kathy Clark Referrals: Kathy Clark, [employer] [Primary Care Provider] - Disposition Disposition: Acute Care Hospital [facility]
[2023-05-16] MEDS: Insulin Lispro 100 UNIT/ML INSULN.PEN 16 UNIT SC (17:03)
[2023-05-16] MEDS: 0.9% Normal Saline 1,000 ML 999 ML IV (17:03)
[2023-05-16] MEDS: Ondansetron 4 MG/2 ML Vial IV (17:04)
[2023-05-16 17:15] LABS: Absolute Lymphocyte Count 0.53 X10^3/uL (0.83-4.51); Absolute Neutrophil Count 9.8 X10^3/uL (2.0-7.7); Basophil# 0.04 X10^3/uL; Basophil% 0.3 % (0-1); Eosinophil# 0.01 X10^3/uL; Eosinophils% 0.1 % (0-5); Hematocrit 40.1 % (37-47); Hemoglobin 13.4 g/dL (12.0-15.0); Lymphocyte # 0.53 X10^3/ul (0.83-4.51); Lymphocyte % 4.6 % (19-41); Mean Corp Hgb Conc 33.4 g/dL (32-36); Mean Corpuscular Hgb 32.4 pg (27.0-32.0); Mean Corpuscular Volume 96.9 fL (81-99); Monocyte# 1.01 X10^3/uL; Monocyte% 8.8 % (0-10); NRBC Flagged by Analyzer 0 % (0-5); Neutrophil # 9.82 X10^3/uL (2.7-7.7); Neutrophil % 85.8 % (47-70); POSITIVE DIFFERENTIAL YES; Platelet Count 155 K/mm3 (150-450); RBC Distribution Width CV 12.5 % (11.6-14.6); RBC Distribution Width SD 44.4 fl (35.1-43.9); Red Blood Count 4.14 M/mm3 (4.2-5.4); White Blood Count 11.5 K/mm3 (4.4-11.0)
[2023-05-16 17:18] LABS: Differential Indicated SCAN CRITERIA MET
[2023-05-16 17:19] LABS: Mucous, Urine 0 SEEN /hpf (<or=2+); Squamous Epithelial Cells - UA 0 SEEN /hpf (5-10)
[2023-05-16 17:24] LABS: Color, Urine Yellow (Yellow); Glucose, Dipstick 1000 mg/dl (Normal); Ketone-Dipstick 5 mg/dl (Negative); Leukocyte Esterase-Dipstick 500 /ul (Negative); Nitrite-Dipstick Positive (Negative); Occult Blood-Urine 150 /ul (Negative); Protein-Dipstick 30 mg/dl (Negative); Urine Bilirubin Dipstick Negative (Negative); Urine Clarity Clear (Clear); Urine Urobilinogen 1 mg/dl (Normal)
[2023-05-16 17:29] LABS: Bedside Glucose 444 mg/dL (74-106)
[2023-05-16 17:35] LABS: White Blood Cells >100 SEEN /hpf (0-5)
[2023-05-16 17:36] LABS: Bacteria 1+ /hpf (None Seen); Red Blood Cells-Urine 0-5 SEEN /hpf (0-5)
[2023-05-16 17:46] LABS: Anion Gap 9 (5-15); BUN 31 mg/dL (7-18); BUN/Creat Ratio 18.1 RATIO (10-20); Calcium,Total 9.4 mg/dL (8.5-10.1); Chloride 97 mmol/L (98-107); Creatinine, Serum 1.71 mg/dL (0.55-1.02); EST Glomerular Filtration Rate 31 mL/min (>60); Est Glom Filt Rate - Afr Amer 37 mL/min (>60); Glucose 434 mg/dL (74-106); Potassium 3.7 mmol/L (3.5-5.1); Sodium Level 132 mmol/L (136-145); Troponin-I HS 144 pg/mL (3.0-54.0)
[2023-05-16 17:49] LABS: Differential Comment SCANNED
[2023-05-16] MEDS: Acetaminophen 500 MG Tablet 1000 MG PO (17:49)
[2023-05-16] MEDS: Ceftriaxone 1 GM/50 ML BAG IV (17:49)
[2023-05-16 18:47] LABS: International Normalized Ratio 1.2; Prothrombin Time (Protime)PT. 15.6 SECONDS (11.7-14.9)
[2023-05-16 18:48] LABS: Partial Thromboplast Time 24.5 Seconds (24.1-36.2)
--- NOTE | 2023-05-16 19:04 | PCM.HP.STD ---
HPI - General General Date of Admission: 05/16/23 HPI Narrative ORLANDO JOHNSON, is a 82 F who presents to the hospital with feeling unwell with fevers and chills. She also describes dysuria and urinary frequency consistent with a UTI that she had in the past. She denies any chest pain or shortness of breath when she presented to the hospital she was found to have an elevated troponin with EKG changes that necessitated contacting cardiology who felt that she should be on a heparin drip. Her UA is highly consistent with UTI so she was again given a dose of Rocephin and she is also had significant elevation in her blood sugar despite stating no change in her diet and continue to take her insulin. It was the elevated blood sugar that she noticed on the monitor that ultimately decided for her to come into the hospital. [facility] Medical History (Updated 05/16/23 @ 18:[address] Lamont Bourgeois MD) Compression fracture COPD (chronic obstructive pulmonary disease) Diabetes mellitus Hyperlipidemia Hypothyroidism Personal history of colonic polyps Home Medications albuterol sulfate 90 mcg/actuation aerosol inhaler (ProAir HFA) 1 - 2 puff inhalation Q6H PRN PRN Sob &/Or Wheezing 01/14/19 [History Last Taken 5 Days Ago ~08/14/20] atenolol 50 mg tablet 50 mg PO BID BP 01/14/19 [History Last Taken 08/19/20 08:00] budesonide-formoterol HFA 160 mcg-4.5 mcg/actuation aerosol inhaler (Symbicort) 2 puff inhalation BID COPD 01/14/19 [History Last Taken 5 Days Ago ~08/14/20] insulin NPH isoph U-100 human 100 unit/mL subcutaneous suspension (Novolin N NPH U-100 Insulin isophane) 25 unit SQ BID 01/14/19 [History Last Taken 08/19/20 08:00] insulin glargine 100 unit/mL (3 mL) subcutaneous pen (Lantus Solostar U-100 Insulin) 20 units subcut QHS DM 01/14/19 [History Last Taken 08/17/20] insulin regular human 100 unit/mL injection solution (Novolin R Regular U-100 Insulin) 20 unit subcut BID DM 01/14/19 [History Last Taken 08/19/20 08:00] levothyroxine 150 mcg tablet 150 mcg PO DAILY THYROID 04/15/19 [History Last Taken 01/16/19 08:00] lisinopril 20 mg tablet (Zestril) 20 mg PO DAILY BP 01/14/19 [History Last Taken 08/19/20 08:00] multivitamin with minerals (Multiple Vitamin-Minerals tablet) 1 ea PO DAILY SUPPLEMENT 01/14/19 [History Last Taken 08/19/20 08:00] simvastatin 40 mg tablet 40 mg PO QHS CHOLESTEROL 01/14/19 [History Last Taken 08/17/20] vit C 250 mg-vit E 90 mg-zinc 40 mg-copper 1 [id number] capsule (PreserVision AREDS-2) 1 ea PO BID EYE HEALTH 01/14/19 [History Last Taken 08/19/20 08:00] hydrochlorothiazide 25 mg tablet 25 mg PO DAILY BP 08/19/20 [History Last Taken 08/19/20 08:00] acetaminophen 325 mg tablet 650 mg (2 x 325 mg) PO Q4H PRN PRN Pain Score 1-3 /Temp>100.7 08/24/20 [Rx Last Taken Unknown] aspirin 81 mg tablet,delayed release (Adult Aspirin Regimen) 81 mg PO DAILY 05/16/23 [History Last Taken Unknown] docusate sodium 100 mg capsule (Colace) 100 mg PO PRN 05/16/23 [History Last Taken Unknown] fluticasone fur. 100 mcg-umeclid 62.5 mcg-vilant 25 mcg inhalat.powder (Trelegy Ellipta) 1 inh inhalation DAILY 05/16/23 [History Last Taken Unknown] Allergy/AdvReac Type Severity Reaction Status Date / Time No Known Allergies Allergy Verified 05/16/23 15:27 Family History (Updated 05/16/23 @ 19:[address] Harshal Veras MD) Other Diabetes Heart disease Surgical History (Updated 05/16/23 @ 19:[address] Harshal Veras MD) Status post cholecystectomy Status post hysterectomy Social History Smoking Status: Former smoker ROS Constitutional Constitutional: Reports chills, fatigue, fever(s) and weakness; Denies malaise Eyes Eyes: Denies blurry vision ENT HEENT: Denies headache(s) or nasal discharge Cardiovascular Cardiovascular: Denies chest pain, dyspnea on exertion or syncope Respiratory/Chest Respiratory/Chest: Denies cough, shortness of breath at rest or shortness of breath with exertion Gastrointestinal Gastrointestinal: Denies constipation, diarrhea, nausea or vomiting Genitourinary Genitourinary: Reports dysuria and urinary frequency Neurologic Neurologic: Denies focal weakness, numbness or tremor(s) Psychiatric Psychiatric: Denies anxiety or depression Vital Signs Vital Signs Vital Signs: 05/16/23 15:25 05/16/23 16:27 05/16/23 17:00 Temperature 97.6 F L 100.1 F H 100.0 F H Temperature Source Temporal Oral Oral Pulse Rate 104 H 101 H 100 Respiratory Rate 20 H 28 H 27 H Respiratory Effort Respiratory Pattern Blood Pressure 150/56 H 108/89 H 102/89 H Blood Pressure Mean 87 95 93 Pulse Ox 93 95 96 Oxygen Delivery Method Room Air Room Air Room Air Oxygen Flow Rate (L/min) 05/16/23 17:26 05/16/23 17:23 05/16/23 17:57 Temperature Temperature Source Pulse Rate 99 95 Respiratory Rate 20 H 24 H Respiratory Effort Short of Breath Respiratory Pattern Tachypnea Blood Pressure 102/89 H 128/51 H Blood Pressure Mean 93 76 Pulse Ox 92 88 Oxygen Delivery Method Room Air Room Air Oxygen Flow Rate (L/min) 05/16/23 17:57 Temperature Temperature Source Pulse Rate Respiratory Rate 32 H Respiratory Effort Respiratory Pattern Blood Pressure Blood Pressure Mean Pulse Ox 94 Oxygen Delivery Method Nasal Cannula Oxygen Flow Rate (L/min) 2 Weight Weight: 238 lb 15.697 oz Body Mass Index (BMI) 45.1 Physical Exam Narrative General: Alert, Oriented x3, Cooperative, No apparent distress HEENT: Atraumatic, PERRLA, EOMI, Normocephalic Oral: Moist Mucosa Neck: Supple, No JVD Lungs: Clear to auscultation, Normal air movement, No rhonchi, No wheeze, No rales Cardiovascular: Regular rate, Regular Rhythm, Normal S1, Normal S2, [place] Abdomen: Soft, Non Tender, Non-Distended, No Hepato-splenomegaly Extremities: Edema, Capillary Refill Less than 3 Seconds Skin: No rashes, No breakdown Musculoskeletal: No Tenderness to Palpation of Joints or Extremities Neurological: Motor Exam 5/5 strength throughout, Sensory exam intact to light touch and pain Psych/Mental Status: Normal Affect, Appropriate Results Lab / Micro Data 05/16/23 17:00 05/16/23 17:00 Labs: Laboratory Results - last 24 hr 05/16/23 15:40: Urine Color Yellow, Urine Clarity Clear, Urine pH 6.0, Ur Specific [place] 1.010, Urine Protein 30 H, Urine Glucose (UA) 1000 H, Urine Ketones 5 H, Urine Occult Blood 150 H, Urine Nitrite Positive H, Urine Bilirubin Negative, Urine Urobilinogen 1 H, Ur Leukocyte Esterase 500 H, Urine RBC 0-5 SEEN, Urine WBC >100 SEEN, Ur Squamous Epith Cells 0 SEEN, Urine Bacteria 1+, Urine Mucus 0 SEEN 05/16/23 16:51: POC Glucose 444 H 05/16/23 17:00: WBC 11.5 H, RBC 4.14 L, Hgb 13.4, Hct 40.1, MCV 96.9, MCH 32.4 H, MCHC 33.4, RDW Std Deviation 44.4 H, RDW Coeff of Cynthia 12.5, Plt Count 155, MPV 10.0, Immature Gran % (Auto) 0.400, Neut % (Auto) 85.8 H, Lymph % (Auto) 4.6 L, [place] % (Auto) 8.8, Eos % (Auto) 0.1, Baso % (Auto) 0.3, Absolute Neuts (auto) 9.8 H, Absolute Lymphs (auto) 0.53 L, Nucleated RBC % 0, Differential Comment SCANNED, PT 15.6 H, INR 1.2, APTT 24.5, Sodium 132 L, Potassium 3.7, Chloride 97 L, Carbon Dioxide 26.0, Anion Gap 9, BUN 31 H, Creatinine 1.71 H, Estim Creat Clear Calc 19.80, Est GFR (MDRD) Af Amer 37 L, Est GFR (MDRD) Non-Af 31 L, BUN/Creatinine Ratio 18.1, Glucose 434 H, Calcium 9.4, Troponin I High Sens 144 H* Micro: Microbiology 05/16/23 17:00 Nasal Secretion SARS-CoV-2 Antigen (Rapid) - Final Rhythm Strip Rhythm Strip: Sinus Rhythm Rate: 100 Ectopy: None Assessment & Plan Assessment/Plan (1) CONSTANCE (acute kidney injury): (2) Hyperglycemia due to diabetes mellitus: (3) Urinary tract infection: PLAN: Plan 1. Non-STEMI versus demand ischemia secondary to UTI with hyperglycemia/DM2/CONSTANCE ? Presented for hypoglycemia, continue with insulin ? We will place her on a cardiac diet that is calorie controlled ? Accu-Cheks ACHS and we will make adjustments as necessary, will continue with her long-acting insulin ? Urine cultures are pending, will continue with IV Rocephin ? We will place her on a heparin drip and consult cardiology we will also serial troponins but at this time is unclear as to what kind of non-STEMI this is ? We will place her on a little bit of IV fluids and hold her nephrotoxic blood pressure medications secondary to an increase in her creatinine to 1.72 baseline is around 1.05 consistent with an CONSTANCE 2. HTN/HLD/aortic stenosis ? Can resume her home atenolol we will hold home hydrochlorothiazide and lisinopril secondary to her elevated creatinine ? Continue with her simvastatin ? Continue with serial troponins and cardiology consult continue with the heparin drip 3. Hypothyroidism ? Stable ? Continue with Synthroid 4. COPD ? Not in exacerbation DVT: Heparin drip Charges/Coding Visit Charges Inpatient E&M: 90048 Init Hosp L3
--- NOTE | 2023-05-16 19:05 | RAD_ITS ---
EXAM: XR CHEST, 1 VIEW CLINICAL INDICATION: hypoxia TECHNIQUE: Frontal view of the chest. COMPARISON: No relevant prior studies available. FINDINGS: LUNGS AND PLEURAL SPACES: There is minimal linear atelectasis in the left midlung. No pneumothorax. No effusion. HEART: Unremarkable. Cardiac silhouette not enlarged. MEDIASTINUM: Central airways and mediastinal contour are unremarkable. BONES/JOINTS: Unremarkable. SOFT TISSUES: Unremarkable. RAD/Chest 1 View (Portable) IMPRESSION: No acute findings in the chest. Electronically Signed: Osiel Renee MD at 20:25 EDT ,
[2023-05-16] MEDS: HEPARIN/D5w 25,000 UNITS 25,000 UNITS/250 ML IV.SOLN. 10 UNITS CONT INF (19:17)
[2023-05-16] MEDS: Heparin Injection (Vial) 5,000 UNIT/ML VIAL 4000 UNIT IV (19:17)
[2023-05-16] MEDS: Aspirin 81 MG TAB.CHEW 324 MG PO (19:17)
[2023-05-16] MEDS: 0.9% Normal Saline 1,000 ML 75 ML IV (19:59)
[2023-05-16 20:52] LABS: Troponin-I HS 360 pg/mL (3.0-54.0)
[2023-05-16] MEDS: Insulin Glargine-YFGN 100 UNIT/ML Pen 20 UNIT SC (20:52)
[2023-05-16] MEDS: Insulin Lispro 100 UNIT/ML INSULN.PEN SC (20:53)
[2023-05-16] MEDS: Atorvastatin Calcium 20 MG Tablet PO (20:53)
--- NOTE | 2023-05-16 21:33 | PN_ITS ---
Progress Note Patient has been admitted for UTI. Of note Patient is hypotensive. Patient received 1 L normal saline emergency department. [place] body weight is 105 pounds. Will give additional 1 L. Will check lactic acid. We will check blood cultures. Urine culture is pending.
[2023-05-16 21:43] LABS: Bedside Glucose 306 mg/dL (74-106)
[2023-05-16 22:35] LABS: Lactic Acid 1.6 mmol/L (0.4-1.9)
[2023-05-16 23:57] LABS: Troponin-I HS 327 pg/mL (3.0-54.0)
[2023-05-17] VITALS (35 sets, daily range): BP systolic 89–163; BP diastolic 31–93; PULSE 57–124; RESP 12–45; TEMP 36.6–39.4; O2SAT 82–100
[2023-05-17] MEDS: 0.9% Normal Saline 1,000 ML 999 ML IV (00:12)
[2023-05-17 00:32] LABS: Absolute Lymphocyte Count 0.92 X10^3/uL (0.83-4.51); Absolute Neutrophil Count 7.7 X10^3/uL (2.0-7.7); Basophil# 0.03 X10^3/uL; Basophil% 0.3 % (0-1); Hematocrit 37.9 % (37-47); Hemoglobin 11.6 g/dL (12.0-15.0); Lymphocyte # 0.92 X10^3/ul (0.83-4.51); Lymphocyte % 9.6 % (19-41); Mean Corp Hgb Conc 30.6 g/dL (32-36); Mean Corpuscular Hgb 32.7 pg (27.0-32.0); Mean Corpuscular Volume 106.8 fL (81-99); Mean Platelet Vol. 9.9 fl (6.2-12.0); Monocyte# 0.93 X10^3/uL; Monocyte% 9.7 % (0-10); NRBC Flagged by Analyzer 0 % (0-5); Neutrophil # 7.65 X10^3/uL (2.7-7.7); Platelet Count 132 K/mm3 (150-450); RBC Distribution Width CV 12.6 % (11.6-14.6); RBC Distribution Width SD 49.8 fl (35.1-43.9); Red Blood Count 3.55 M/mm3 (4.2-5.4); White Blood Count 9.6 K/mm3 (4.4-11.0)
[2023-05-17 00:46] LABS: Anion Gap 8 (5-15); BUN 34 mg/dL (7-18); BUN/Creat Ratio 20.7 RATIO (10-20); Calcium,Total 8.1 mg/dL (8.5-10.1); Chloride 104 mmol/L (98-107); Creatinine, Serum 1.64 mg/dL (0.55-1.02); EST Glomerular Filtration Rate 32 mL/min (>60); Est Glom Filt Rate - Afr Amer 39 mL/min (>60); Estimated Creatinine Clearance 20.65 ml/min; Glucose 291 mg/dL (74-106); Potassium 3.9 mmol/L (3.5-5.1); Sodium Level 134 mmol/L (136-145)
[2023-05-17 01:57] LABS: Partial Thromboplast Time 63.5 Seconds (24.1-36.2)
[2023-05-17 03:18] LABS: Bedside Glucose 265 mg/dL (74-106)
--- NOTE | 2023-05-17 03:39 | RAD_ITS ---
EXAM: XR CHEST, 1 VIEW CLINICAL INDICATION: hypoxia, SOB TECHNIQUE: Frontal view of the chest. COMPARISON: May 16, 2023 at 7:01 PM FINDINGS: LUNGS AND PLEURAL SPACES: Persistent mildly low lung volumes and minimal with curvilinear band of atelectasis or scarring in the left lateral mid lung field. Slightly increased vascular markings and linear markings in the medial right lung base. No confluent alveolar infiltrate or effusion. No pneumothorax. HEART: Unremarkable. Cardiac silhouette not enlarged. MEDIASTINUM: Central airways and mediastinal contour are unremarkable. BONES/JOINTS: Unremarkable. SOFT TISSUES: Unremarkable. VASCULATURE: Peripheral calcification of the aortic arch again noted. UPPER ABDOMEN: Prominent upper abdominal bowel gas. RAD/Chest 1 View (Portable) IMPRESSION: 1. Similar findings with the exception of slightly increased linear stranding and vascular crowding at the right lung base. Mild pulmonary vascular distention. No confluent alveolar infiltrates or effusions. 2. Prominent upper abdominal bowel gas is included. Electronically Signed: Marlena Adams MD at 5:41 EDT ,
[2023-05-17] MEDS: Albuterol 2.5 MG/3 ML VIAL.NEB. INHALATION (03:50)
[2023-05-17 04:15] LABS: Allen Test Positive; Base Excess -6 mmol/L (-2 to +2); Bicarbonate 20.7 mmol/L (22-26); Blood Gas Specimen Type ART; O2 Delivery Device HFNC; PO2 64 mmHG (75-100); SITE L Radial; SO2 89 % (95-99); Total Carbon Dioxide 22 mmol/L; pCO2 45.1 mmHg (35-45); pH 7.27 (7.35-7.45)
--- NOTE | 2023-05-17 04:20 | NURSING ---
Pt having increased work of breathing, tachypneic in the 30s to 40s. MD notified, orders given for stat blood gas and CXR. Respiratory at bedside, placed on bipap for hypoxia and WOB. Breathing tx given and ABG obtained. X-ray at bedside.
[2023-05-17 04:57] LABS: Absolute Lymphocyte Count 0.71 X10^3/uL (0.83-4.51); Absolute Neutrophil Count 7.4 X10^3/uL (2.0-7.7); Basophil# 0.03 X10^3/uL; Basophil% 0.3 % (0-1); Eosinophil# 0.01 X10^3/uL; Eosinophils% 0.1 % (0-5); Hematocrit 37.2 % (37-47); Hemoglobin 12.3 g/dL (12.0-15.0); Lymphocyte # 0.71 X10^3/ul (0.83-4.51); Lymphocyte % 8.1 % (19-41); Mean Corp Hgb Conc 33.1 g/dL (32-36); Mean Corpuscular Volume 99.7 fL (81-99); Mean Platelet Vol. 10.2 fl (6.2-12.0); Monocyte# 0.61 X10^3/uL; Monocyte% 6.9 % (0-10); NRBC Flagged by Analyzer 0 % (0-5); Neutrophil % 84.3 % (47-70); Platelet Count 155 K/mm3 (150-450); RBC Distribution Width CV 12.8 % (11.6-14.6); RBC Distribution Width SD 46.5 fl (35.1-43.9); Red Blood Count 3.73 M/mm3 (4.2-5.4); White Blood Count 8.8 K/mm3 (4.4-11.0)
[2023-05-17 05:15] LABS: Magnesium 1.9 mg/dL (1.6-2.6)
[2023-05-17 05:22] LABS: Anion Gap 8 (5-15); BUN 31 mg/dL (7-18); BUN/Creat Ratio 20.9 RATIO (10-20); Calcium,Total 8.2 mg/dL (8.5-10.1); Chloride 103 mmol/L (98-107); Creatinine, Serum 1.48 mg/dL (0.55-1.02); EST Glomerular Filtration Rate 36 mL/min (>60); Est Glom Filt Rate - Afr Amer 44 mL/min (>60); Estimated Creatinine Clearance 22.88 ml/min; Glucose 378 mg/dL (74-106); Potassium 4.3 mmol/L (3.5-5.1); Sodium Level 136 mmol/L (136-145)
[2023-05-17] MEDS: 0.9% Saline Lock 10 ML Syringe IV ×2 (05:39→21:37)
[2023-05-17] MEDS: Insulin Lispro 100 UNIT/ML INSULN.PEN SC ×4 (06:36→21:38)
[2023-05-17] MEDS: Levothyroxine 150 MCG Tablet PO (06:37)
[2023-05-17] MEDS: Acetaminophen 325 MG Tablet 650 MG PO ×3 (06:40→22:30)
[2023-05-17 06:55] LABS: Bedside Glucose 397 mg/dL (74-106)
[2023-05-17 08:48] LABS: Partial Thromboplast Time 54.7 Seconds (24.1-36.2)
[2023-05-17] MEDS: Aspirin E.C. 81 MG Tablet PO (08:48)
--- NOTE | 2023-05-17 08:51 | CON.PCM.CA_ITS ---
Documented by User: Maren FERREIRA, PA 05/17/23 14:40 Assessment & Plan Assessment/Plan (1) Elevated troponin: (2) Aortic stenosis: (3) Essential hypertension: PLAN: Plan * In regards to patient's elevated troponin, this was likely related to demand mismatch. Feel that this is a type II event. Recommend when able to restart her home blood pressure medications with her atenolol and lisinopril.She is currently on aspirin.
--- NOTE | 2023-05-17 08:51 | PCM.CONS.C ---
Documented by User: Maren FERREIRA PA 05/17/23 14:40 Assessment & Plan Assessment/Plan (1) Elevated troponin: (2) Aortic stenosis: (3) Essential hypertension: PLAN: Plan In regards to patient's elevated troponin, this was likely related to demand mismatch. Feel that this is a type II event. Recommend when able to restart her home blood pressure medications with her atenolol and lisinopril.She is currently on aspirin. Patient does have mild to moderate aortic stenosis. This appears to be similar per patient. Recommend that she continue to have this followed up on an outpatient basis. HPI Consult Data Date of Consult: 05/17/23 HPI Narrative HPI Narrative: ORLANDO JOHNSON, is a 82 F who presented to [facility] ER on 05/16/23 with Hyperglycemia. Patient was noted to have an abnormal EKG. EKG demonstrated sinus tachycardia, left anterior fascicular block, ST elevation in lead III only, ST depression laterally in 1 and aVL. Because of this troponins were cycled. Troponins trended at 144, 360, 327. There was also concern over a UTI. Patient was admitted to PCU. She does have a history of hypertension, hyperlipidemia and aortic stenosis. She was hypotensive last night and did require IV fluids. Prior to patient coming into the hospital she did not have any chest pain, shortness of breath, palpitations, lightheadedness, dizziness or lower extremity edema. [facility] Medical History (Updated 05/17/23 @ 14:38 by Maren FERREIRA PA) Compression fracture COPD (chronic obstructive pulmonary disease) Diabetes mellitus Hyperlipidemia Hypothyroidism Personal history of colonic polyps Home Medications albuterol sulfate 90 mcg/actuation aerosol inhaler (ProAir HFA) 1 - 2 puff inhalation Q6H PRN PRN Sob &/Or Wheezing 01/14/19 [History Last Taken 5 Days Ago ~08/14/20] atenolol 50 mg tablet 50 mg PO BID BP 01/14/19 [History Last Taken 08/19/20 08:00] budesonide-formoterol HFA 160 mcg-4.5 mcg/actuation aerosol inhaler (Symbicort) 2 puff inhalation BID COPD 01/14/19 [History Last Taken 5 Days Ago ~08/14/20] insulin NPH isoph U-100 human 100 unit/mL subcutaneous suspension (Novolin N NPH U-100 Insulin isophane) 25 unit SQ BID 01/14/19 [History Last Taken 08/19/20 08:00] insulin glargine 100 unit/mL (3 mL) subcutaneous pen (Lantus Solostar U-100 Insulin) 20 units subcut QHS DM 01/14/19 [History Last Taken 08/17/20] insulin regular human 100 unit/mL injection solution (Novolin R Regular U-100 Insulin) 20 unit subcut BID DM 01/14/19 [History Last Taken 08/19/20 08:00] levothyroxine 150 mcg tablet 150 mcg PO DAILY THYROID 01/14/19 [History Last Taken 01/16/19 08:00] lisinopril 20 mg tablet (Zestril) 20 mg PO DAILY BP 01/14/19 [History Last Taken 08/19/20 08:00] multivitamin with minerals (Multiple Vitamin-Minerals tablet) 1 ea PO DAILY SUPPLEMENT 01/14/19 [History Last Taken 08/19/20 08:00] simvastatin 40 mg tablet 40 mg PO QHS CHOLESTEROL 01/14/19 [History Last Taken 08/17/20] vit C 250 mg-vit E 90 mg-zinc 40 mg-copper 1 [id number] capsule (PreserVision AREDS-2) 1 ea PO BID EYE HEALTH 01/14/19 [History Last Taken 08/19/20 08:00] hydrochlorothiazide 25 mg tablet 25 mg PO DAILY BP 08/19/20 [History Last Taken 08/19/20 08:00] acetaminophen 325 mg tablet 650 mg (2 x 325 mg) PO Q4H PRN PRN Pain Score 1-3 /Temp>100.7 08/24/20 [Rx Last Taken Unknown] aspirin 81 mg tablet,delayed release (Adult Aspirin Regimen) 81 mg PO DAILY 05/16/23 [History Last Taken Unknown] docusate sodium 100 mg capsule (Colace) 100 mg PO PRN 05/16/23 [History Last Taken Unknown] fluticasone fur. 100 mcg-umeclid 62.5 mcg-vilant 25 mcg inhalat.powder (Trelegy Ellipta) 1 inh inhalation DAILY 05/16/23 [History Last Taken Unknown] Allergy/AdvReac Type Severity Reaction Status Date / Time No Known Allergies Allergy Verified 05/16/23 15:27 Family History (Updated 05/16/23 @ 19:[address] Harshal Veras MD) Other Diabetes Heart disease Surgical History (Updated 05/16/23 @ 19:[address] Harshal Veras MD) Status post cholecystectomy Status post hysterectomy Social History Smoking Status: Former smoker ROS Constitutional Constitutional: Reports chills, fatigue, fever(s) and weakness; Denies malaise Eyes Eyes: Denies blurry vision ENT HEENT: Denies headache(s) or nasal discharge Cardiovascular Cardiovascular: Denies chest pain, dyspnea on exertion or syncope Respiratory/Chest Respiratory/Chest: Denies cough, shortness of breath at rest or shortness of breath with exertion Gastrointestinal Gastrointestinal: Denies constipation, diarrhea, nausea or vomiting Genitourinary Genitourinary: Reports dysuria and urinary frequency Neurologic Neurologic: Denies focal weakness, numbness or tremor(s) Psychiatric Psychiatric: Denies anxiety or depression Physical Exam Const alert and oriented x3 Constitutional Narrative: On oxygen, shortness of breath with speaking. Nutritional Appearance: obese HEENT normocephalic, head/scalp atraumatic, hearing grossly normal bilaterally, external ears normal, external nose normal and moist oral mucous membranes Eyes PERRL, EOMs intact bilaterally, conjunctivae normal and no scleral icterus Neck no lymphadenopathy, supple and no JVD Resp Auscultation: diminished lung sounds bilateral lower Cardio regular rate, regular rhythm, S1 normal heart sound, S2 normal heart sound, no rub, no gallops, no clicks, no JVD and peripheral pulses 2+ throughout Heart Sounds: murmur systolic II/ harsh mid GI normal to inspection, nondistended, normoactive bowel sounds, soft to palpation, non-tender and non-distended Extremity normal to inspection, normal capillary refill, no clubbing, cyanosis or edema and no pedal edema Neuro oriented x3, CN's II-XII intact bilaterally, moves all extremities and no focal motor deficits Psych cooperative and affect normal Risk Stratification Risk Stratification Applicable: Yes Age >/= 65: Yes >/= 3 CAD Risk Factors (HTN, HLD, DM, family hx of CAD, or current smoker): Yes Aspirin Use in the Past 7 Days: Yes Severe Angina (>/= episodes in 24 hours): No EKG ST Changes >/= 0.5mm: No Positive Cardiac Marker: Yes NOÉ Risk Stratification Score: 4 NOÉ % Risk: 20% Risk Charges/Coding Visit Charges Office Visits / Consults: 88778 IP Consult L3 Objective Data Vital Signs: Vital Signs Temp Pulse Resp BP Pulse Ox O2 Del Method O2 Flow Rate 98.5 F 83 29 H 96/31 L 99 High Flow 6 05/17/23 08:00 05/17/23 08:00 05/17/23 08:00 05/17/23 08:00 05/17/23 08:49 05/17/23 08:49 05/17/23 08:49 FiO2 45 05/17/23 05:00 Oxygen Flow Rate (L/min) 6 Oxygen Delivery Method High Flow Weight: 236 lb 8.896 oz Body Mass Index (BMI) 44.6 Intake & Output: Intake and Output for Last 24 Hours 05/15/23 05/16/23 05/17/23 23:59 23:59 23:59 Intake Total 1550 / 1750 2273.67 / 2273.67 Output Total 700 / 700 Balance 1550 / 1450 1573.67 / 1573.67 Lab / Micro Data 05/17/23 04:48 05/17/23 04:48 Labs: Laboratory Results - last 24 hr 05/16/23 15:40: Urine Color Yellow, Urine Clarity Clear, Urine pH 6.0, Ur Specific [place] 1.010, Urine Protein 30 H, Urine Glucose (UA) 1000 H, Urine Ketones 5 H, Urine Occult Blood 150 H, Urine Nitrite Positive H, Urine Bilirubin Negative, Urine Urobilinogen 1 H, Ur Leukocyte Esterase 500 H, Urine RBC 0-5 SEEN, Urine WBC >100 SEEN, Ur Squamous Epith Cells 0 SEEN, Urine Bacteria 1+, Urine Mucus 0 SEEN 05/16/23 16:51: POC Glucose 444 H 05/16/23 17:00: WBC 11.5 H, RBC 4.14 L, Hgb 13.4, Hct 40.1, MCV 96.9, MCH 32.4 H, MCHC 33.4, RDW Std Deviation 44.4 H, RDW Coeff of Cynthia 12.5, Plt Count 155, MPV 10.0, Immature Gran % (Auto) 0.400, Neut % (Auto) 85.8 H, Lymph % (Auto) 4.6 L, [place] % (Auto) 8.8, Eos % (Auto) 0.1, Baso % (Auto) 0.3, Absolute Neuts (auto) 9.8 H, Absolute Lymphs (auto) 0.53 L, Nucleated RBC % 0, Differential Comment SCANNED, PT 15.6 H, INR 1.2, APTT 24.5, Sodium 132 L, Potassium 3.7, Chloride 97 L, Carbon Dioxide 26.0, Anion Gap 9, BUN 31 H, Creatinine 1.71 H, Estim Creat Clear Calc 19.80, Est GFR (MDRD) Af Amer 37 L, Est GFR (MDRD) Non-Af 31 L, BUN/Creatinine Ratio 18.1, Glucose 434 H, Calcium 9.4, Troponin I High Sens 144 H* 05/16/23 19:57: Troponin I High Sens 360 H* 05/16/23 20:51: POC Glucose 306 H 05/16/23 21:45: Lactic Acid 1.6 05/16/23 23:03: Troponin I High Sens 327 H* 05/17/23 00:27: WBC 9.6, RBC 3.55 L, Hgb 11.6 L, Hct 37.9, MCV 106.8 H D, MCH 32.7 H, MCHC 30.6 L D, RDW Std Deviation 49.8 H, RDW Coeff of Cynthia 12.6, Plt Count 132 L, MPV 9.9, Immature Gran % (Auto) 0.400, Neut % (Auto) 80.0 H, Lymph % (Auto) 9.6 L, [place] % (Auto) 9.7, Eos % (Auto) 0.0, Baso % (Auto) 0.3, Absolute Neuts (auto) 7.7, Absolute Lymphs (auto) 0.92, Nucleated RBC % 0, Sodium 134 L, Potassium 3.9, Chloride 104, Carbon Dioxide 22.0, Anion Gap 8, BUN 34 H, Creatinine 1.64 H, Estim Creat Clear Calc 20.65, Est GFR (MDRD) Af Amer 39 L, Est GFR (MDRD) Non-Af 32 L, BUN/Creatinine Ratio 20.7 H, Glucose 291 H, Calcium 8.1 L 0816/23 01:30: APTT 63.5 H 05/17/23 02:55: POC Glucose 265 H 05/17/23 04:48: WBC 8.8, RBC 3.73 L, Hgb 12.3, Hct 37.2, MCV 99.7 H D, MCH 33.0 H, MCHC 33.1 D, RDW Std Deviation 46.5 H, RDW Coeff of Cynthia 12.8, Plt Count 155, MPV 10.2, Immature Gran % (Auto) 0.300, Neut % (Auto) 84.3 H, Lymph % (Auto) 8.1 L, [place] % (Auto) 6.9, Eos % (Auto) 0.1, Baso % (Auto) 0.3, Absolute Neuts (auto) 7.4, Absolute Lymphs (auto) 0.71 L, Nucleated RBC % 0, Sodium 136, Potassium 4.3, Chloride 103, Carbon Dioxide 25.0, Anion Gap 8, BUN 31 H, Creatinine 1.48 H, Estim Creat Clear Calc 22.88, Est GFR (MDRD) Af Amer 44 L, Est GFR (MDRD) Non-Af 36 L, BUN/Creatinine Ratio 20.9 H, Glucose 378 H, Calcium 8.2 L, Magnesium 1.9 05/17/23 06:36: POC Glucose 397 H 05/17/23 08:10: APTT 54.7 H Micro: Microbiology 05/16/23 17:00 Nasal Secretion SARS-CoV-2 Antigen (Rapid) - Final ABG Data ABG results: ABG 05/17/23 04:11 Specimen Type ART Sample Site L Radial pH 7.27 L Bicarbonate Actual 20.7 L Total CO2 22 Base Excess -6 L O2 Saturation 89 L ABG pCO2 45.1 H ABG pO2 64 L Epifanio Test Positive O2 Delivery Device HFNC Liter Flow 9.0 Clinical Comments Rhythm Strip Rhythm Strip: Sinus Rhythm Rate: 100 Ectopy: None Cardiology Labs/Tests 05/16/23 15:40: Urine Color Yellow, Urine Clarity Clear, Urine pH 6.0, Ur Specific [place] 1.010, Urine Protein 30 H, Urine Glucose (UA) 1000 H, Urine Ketones 5 H, Urine Occult Blood 150 H, Urine Nitrite Positive H, Urine Bilirubin Negative, Urine Urobilinogen 1 H, Ur Leukocyte Esterase 500 H, Urine RBC 0-5 SEEN, Urine WBC >100 SEEN 05/16/23 17:00: WBC 11.5 H, RBC 4.14 L, Hgb 13.4, Hct 40.1, MCV 96.9, MCH 32.4 H, MCHC 33.4, Plt Count 155, MPV 10.0, Immature Gran % (Auto) 0.400, Neut % (Auto) 85.8 H, Lymph % (Auto) 4.6 L, [place] % (Auto) 8.8, Eos % (Auto) 0.1, Baso % (Auto) 0.3, Absolute Neuts (auto) 9.8 H, Nucleated RBC % 0, PT 15.6 H, INR 1.2, APTT 24.5, Sodium 132 L, Potassium 3.7, Chloride 97 L, Carbon Dioxide 26.0, Anion Gap 9, BUN 31 H, Creatinine 1.71 H, Est GFR (MDRD) Af Amer 37 L, Est GFR (MDRD) Non-Af 31 L, BUN/Creatinine Ratio 18.1, Glucose 434 H, Calcium 9.4 05/16/23 21:45: Lactic Acid 1.6 05/17/23 00:27: WBC 9.6, RBC 3.55 L, Hgb 11.6 L, Hct 37.9, MCV 106.8 H D, MCH 32.7 H, MCHC 30.6 L D, Plt Count 132 L, MPV 9.9, Immature Gran % (Auto) 0.400, Neut % (Auto) 80.0 H, Lymph % (Auto) 9.6 L, [place] % (Auto) 9.7, Eos % (Auto) 0.0, Baso % (Auto) 0.3, Absolute Neuts (auto) 7.7, Nucleated RBC % 0, Sodium 134 L, Potassium 3.9, Chloride 104, Carbon Dioxide 22.0, Anion Gap 8, BUN 34 H, Creatinine 1.64 H, Est GFR (MDRD) Af Amer 39 L, Est GFR (MDRD) Non-Af 32 L, BUN/Creatinine Ratio 20.7 H, Glucose 291 H, Calcium 8.1 L 05/17/23 01:30: APTT 63.5 H 05/17/23 04:11: pH 7.27 L, Bicarbonate Actual 20.7 L, Base Excess -6 L, O2 Saturation 89 L, ABG pCO2 45.1 H, ABG pO2 64 L, Epifaino Test Positive 05/17/23 04:48: WBC 8.8, RBC 3.73 L, Hgb 12.3, Hct 37.2, MCV 99.7 H D, MCH 33.0 H, MCHC 33.1 D, Plt Count 155, MPV 10.2, Immature Gran % (Auto) 0.300, Neut % (Auto) 84.3 H, Lymph % (Auto) 8.1 L, [place] % (Auto) 6.9, Eos % (Auto) 0.1, Baso % (Auto) 0.3, Absolute Neuts (auto) 7.4, Nucleated RBC % 0, Sodium 136, Potassium 4.3, Chloride 103, Carbon Dioxide 25.0, Anion Gap 8, BUN 31 H, Creatinine 1.48 H, Est GFR (MDRD) Af Amer 44 L, Est GFR (MDRD) Non-Af 36 L, BUN/Creatinine Ratio 20.9 H, Glucose 378 H, Calcium 8.2 L, Magnesium 1.9 05/17/23 08:10: APTT 54.7 H ECHO: 09/2022: The estimated ejection fraction is 60 %. Trivial mitral valve insufficiency. Mild to moderate aortic stenosis. Trivial aortic valve insufficiency. Radiography Diagnostic Testing: Radiology Impression Chest X-Ray 05/16/23 19:05 IMPRESSION: No acute findings in the chest. Electronically Signed: Osiel Renee MD at 20:25 EDT , Chest X-Ray 05/17/23 03:39 IMPRESSION: 1. Similar findings with the exception of slightly increased linear stranding and vascular crowding at the right lung base. Mild pulmonary vascular distention. No confluent alveolar infiltrates or effusions. 2. Prominent upper abdominal bowel gas is included. Electronically Signed: Marlena Adams MD at 5:41 EDT , Documented by User: Dr. Ky Becker MD 05/17/23 18:29 Assessment & Plan Assessment/Plan (1) Elevated troponin: (2) Aortic stenosis: (3) Essential hypertension: PLAN: Plan In regards to patient's elevated troponin, this was likely related to demand mismatch. Feel that this is a type II event. Recommend when able to restart her home blood pressure medications with her atenolol and lisinopril.She is currently on aspirin. Patient does have mild to moderate aortic stenosis. This appears to be similar per patient to prior study . Recommend that she continue to have this followed up on an outpatient basis. I independently examined this patient, reviewed all the current evaluation in the hospital Including imaging studies, EKG, peoplesoft programmer, current lab results and current cardiac medication. I concur with cardiac care plan as per midlevel note and documentation. Ky Becker MD,FAC,[facility] HPI Consult Data Date of Consult: 05/17/23 [facility] Medical History (Updated 05/17/23 @ 14:38 by Maren FERREIRA, PA) Compression fracture COPD (chronic obstructive pulmonary disease) Diabetes mellitus Hyperlipidemia Hypothyroidism Personal history of colonic polyps Home Medications albuterol sulfate 90 mcg/actuation aerosol inhaler (ProAir HFA) 1 - 2 puff inhalation Q6H PRN PRN Sob &/Or Wheezing 01/14/19 [History Last Taken 5 Days Ago ~08/14/20] atenolol 50 mg tablet 50 mg PO BID BP 01/14/19 [History Last Taken 08/19/20 08:00] budesonide-formoterol HFA 160 mcg-4.5 mcg/actuation aerosol inhaler (Symbicort) 2 puff inhalation BID COPD 01/14/19 [History Last Taken 5 Days Ago ~08/14/20] insulin NPH isoph U-100 human 100 unit/mL subcutaneous suspension (Novolin N NPH U-100 Insulin isophane) 25 unit SQ BID 01/14/19 [History Last Taken 08/19/20 08:00] insulin glargine 100 unit/mL (3 mL) subcutaneous pen (Lantus Solostar U-100 Insulin) 20 units subcut QHS DM 01/14/19 [History Last Taken 08/17/20] insulin regular human 100 unit/mL injection solution (Novolin R Regular U-100 Insulin) 20 unit subcut BID DM 01/14/19 [History Last Taken 08/19/20 08:00] levothyroxine 150 mcg tablet 150 mcg PO DAILY THYROID 01/14/19 [History Last Taken 01/16/19 08:00] lisinopril 20 mg tablet (Zestril) 20 mg PO DAILY BP 01/14/19 [History Last Taken 08/19/20 08:00] multivitamin with minerals (Multiple Vitamin-Minerals tablet) 1 ea PO DAILY SUPPLEMENT 01/14/19 [History Last Taken 08/19/20 08:00] simvastatin 40 mg tablet 40 mg PO QHS CHOLESTEROL 01/14/19 [History Last Taken 08/17/20] vit C 250 mg-vit E 90 mg-zinc 40 mg-copper 1 [id number] capsule (PreserVision AREDS-2) 1 ea PO BID EYE HEALTH 01/14/19 [History Last Taken 08/19/20 08:00] hydrochlorothiazide 25 mg tablet 25 mg PO DAILY BP 08/19/20 [History Last Taken 08/19/20 08:00] acetaminophen 325 mg tablet 650 mg (2 x 325 mg) PO Q4H PRN PRN Pain Score 1-3 /Temp>100.7 08/24/20 [Rx Last Taken Unknown] aspirin 81 mg tablet,delayed release (Adult Aspirin Regimen) 81 mg PO DAILY 05/16/23 [History Last Taken Unknown] docusate sodium 100 mg capsule (Colace) 100 mg PO PRN 05/16/23 [History Last Taken Unknown] fluticasone fur. 100 mcg-umeclid 62.5 mcg-vilant 25 mcg inhalat.powder (Trelegy Ellipta) 1 inh inhalation DAILY 05/16/23 [History Last Taken Unknown] Allergy/AdvReac Type Severity Reaction Status Date / Time No Known Allergies Allergy Verified 05/16/23 15:27 Family History (Updated 05/16/23 @ 19:[address] Harshal Veras MD) Other Diabetes Heart disease Surgical History (Updated 05/16/23 @ 19:[address] Harshal Veras MD) Status post cholecystectomy Status post hysterectomy Social History Smoking Status: Former smoker Risk Stratification Age >/= 65: Yes NOÉ Risk Stratification Score: 4 NOÉ % Risk: 20% Risk Lab / Micro Data 05/17/23 04:48 05/17/23 04:48
--- NOTE | 2023-05-17 11:50 | CASEMGMT ---
RADHA MARSH Face to Face with patient for initial transition planning/care coordination assessment. RN CM introduced self and role at [facility]. Patient lying in bed, alert and oriented, son and daughter at bedside. Patient willing to participate in assessment and is able to answer all questions appropriately. Care providers, pharmacy, and demographics verified. Patient wishes to discharge home, will monitor for HHC pending precert. Patient states she has no further needs or concerns at this time. CM to follow for discharge planning needs that may arise. PCP: Eduardo REESE Specialists: Tyler lithographic proofer Preferred Pharmacy: [facility] [place] Insurance: [employer] Prescription Benefit: yes Living Will/HPOA: Deanna mcnulty LNOK: daughter, son Living Arrangements: Patient lives alone in a single story home with 2 steps and railing to enter the home. Patient is indepnedent at home. Transportation: daughter, son DME/HHC: Patient has raised toilet, cane, rollator, pulse ox at home. Will monitor for home oxygen. Patient prefers [employer] or [employer] for DME. Daughter inquired about [facility], will update SW. Disposition Plan: Patient to discharge home with family support and follow-up plans in place. Will monitor for HHC and home oxygen Lynn MEEHAN, RN, CM
[2023-05-17 12:06] LABS: Bedside Glucose 303 mg/dL (74-106)
--- NOTE | 2023-05-17 13:57 | PCM.PN.HOSP ---
Reason for Visit Reason for Visit: Diagnoses Type 2 diabetes mellitus with hyperglycemia (05/16/23) Acute kidney failure, unspecified (05/16/23) Urinary tract infection, site not specified (05/16/23) Subjective Subjective Patient seen at bedside this morning, daughter and grandchildren present. Patient is lying comfortably in bed, conversing normally, satting well on 2 L nasal cannula with no increased work. She does report feeling fatigued but she denies any acute pain or discomfort. She denies any fevers or chills. She denies any dysuria. No other acute concerns. Objective Data Objective Data Vital Signs: Vital Signs Temp Pulse Resp BP Pulse Ox O2 Del Method O2 Flow Rate 98.3 F 70 23 H 110/67 96 High Flow 2 05/17/23 12:45 05/17/23 12:45 05/17/23 12:50 05/17/23 12:45 05/17/23 12:50 05/17/23 12:50 05/17/23 12:50 FiO2 45 05/17/23 05:00 Oxygen Flow Rate (L/min) 2 Oxygen Delivery Method High Flow Weight: 107.3 kg Body Mass Index (BMI) 44.6 Intake & Output: Intake and Output for Last 24 Hours 05/15/23 05/16/23 05/17/23 23:59 23:59 23:59 Intake Total 1550 / 1750 2625.34 / 2625.34 Output Total 1150 / 1150 Balance 1550 / 1450 1475.34 / 1475.34 Lab / Micro Data Attestation: I reviewed the patient's lab results. 05/17/23 04:48 05/17/23 04:48 Labs: Laboratory Results - last 24 hr 05/16/23 15:40: Urine Color Yellow, Urine Clarity Clear, Urine pH 6.0, Ur Specific [place] 1.010, Urine Protein 30 H, Urine Glucose (UA) 1000 H, Urine Ketones 5 H, Urine Occult Blood 150 H, Urine Nitrite Positive H, Urine Bilirubin Negative, Urine Urobilinogen 1 H, Ur Leukocyte Esterase 500 H, Urine RBC 0-5 SEEN, Urine WBC >100 SEEN, Ur Squamous Epith Cells 0 SEEN, Urine Bacteria 1+, Urine Mucus 0 SEEN 05/16/23 16:51: POC Glucose 444 H 05/16/23 17:00: WBC 11.5 H, RBC 4.14 L, Hgb 13.4, Hct 40.1, MCV 96.9, MCH 32.4 H, MCHC 33.4, RDW Std Deviation 44.4 H, RDW Coeff of Cynthia 12.5, Plt Count 155, MPV 10.0, Immature Gran % (Auto) 0.400, Neut % (Auto) 85.8 H, Lymph % (Auto) 4.6 L, Hinds % (Auto) 8.8, Eos % (Auto) 0.1, Baso % (Auto) 0.3, Absolute Neuts (auto) 9.8 H, Absolute Lymphs (auto) 0.53 L, Nucleated RBC % 0, Differential Comment SCANNED, PT 15.6 H, INR 1.2, APTT 24.5, Sodium 132 L, Potassium 3.7, Chloride 97 L, Carbon Dioxide 26.0, Anion Gap 9, BUN 31 H, Creatinine 1.71 H, Estim Creat Clear Calc 19.80, Est GFR (MDRD) Af Amer 37 L, Est GFR (MDRD) Non-Af 31 L, BUN/Creatinine Ratio 18.1, Glucose 434 H, Calcium 9.4, Troponin I High Sens 144 H* 05/16/23 19:57: Troponin I High Sens 360 H* 05/16/23 20:51: POC Glucose 306 H 05/16/23 21:45: Lactic Acid 1.6 05/16/23 23:03: Troponin I High Sens 327 H* 05/17/23 00:27: WBC 9.6, RBC 3.55 L, Hgb 11.6 L, Hct 37.9, MCV 106.8 H D, MCH 32.7 H, MCHC 30.6 L D, RDW Std Deviation 49.8 H, RDW Coeff of Cynthia 12.6, Plt Count 132 L, MPV 9.9, Immature Gran % (Auto) 0.400, Neut % (Auto) 80.0 H, Lymph % (Auto) 9.6 L, Hinds % (Auto) 9.7, Eos % (Auto) 0.0, Baso % (Auto) 0.3, Absolute Neuts (auto) 7.7, Absolute Lymphs (auto) 0.92, Nucleated RBC % 0, Sodium 134 L, Potassium 3.9, Chloride 104, Carbon Dioxide 22.0, Anion Gap 8, BUN 34 H, Creatinine 1.64 H, Estim Creat Clear Calc 20.65, Est GFR (MDRD) Af Amer 39 L, Est GFR (MDRD) Non-Af 32 L, BUN/Creatinine Ratio 20.7 H, Glucose 291 H, Calcium 8.1 L 05/17/23 01:30: APTT 63.5 H 05/17/23 02:55: POC Glucose 265 H 05/17/23 04:48: WBC 8.8, RBC 3.73 L, Hgb 12.3, Hct 37.2, MCV 99.7 H D, MCH 33.0 H, MCHC 33.1 D, RDW Std Deviation 46.5 H, RDW Coeff of Cynthia 12.8, Plt Count 155, MPV 10.2, Immature Gran % (Auto) 0.300, Neut % (Auto) 84.3 H, Lymph % (Auto) 8.1 L, Hinds % (Auto) 6.9, Eos % (Auto) 0.1, Baso % (Auto) 0.3, Absolute Neuts (auto) 7.4, Absolute Lymphs (auto) 0.71 L, Nucleated RBC % 0, Sodium 136, Potassium 4.3, Chloride 103, Carbon Dioxide 25.0, Anion Gap 8, BUN 31 H, Creatinine 1.48 H, Estim Creat Clear Calc 22.88, Est GFR (MDRD) Af Amer 44 L, Est GFR (MDRD) Non-Af 36 L, BUN/Creatinine Ratio 20.9 H, Glucose 378 H, Hemoglobin A1c 7.0 H, Calcium 8.2 L, Magnesium 1.9 05/17/23 06:36: POC Glucose 397 H 05/17/23 08:10: APTT 54.7 H 05/17/23 11:41: POC Glucose 303 H Micro: Microbiology 05/16/23 15:40 Urine, Clean Catch Urine Culture - Preliminary GNR lactose retoucher photoengraving 05/16/23 17:00 Nasal Secretion SARS-CoV-2 Antigen (Rapid) - Final ABG Data ABG results: ABG 05/17/23 04:11 Specimen Type ART Sample Site L Radial pH 7.27 L Bicarbonate Actual 20.7 L Total CO2 22 Base Excess -6 L O2 Saturation 89 L ABG pCO2 45.1 H ABG pO2 64 L Epifanio Test Positive O2 Delivery Device HFNC Liter Flow 9.0 Clinical Comments Radiography Diagnostic Testing: Radiology Impression Chest X-Ray 05/16/23 19:05 IMPRESSION: No acute findings in the chest. Electronically Signed: Osiel Renee MD at 20:25 EDT , Chest X-Ray 05/17/23 03:39 IMPRESSION: 1. Similar findings with the exception of slightly increased linear stranding and vascular crowding at the right lung base. Mild pulmonary vascular distention. No confluent alveolar infiltrates or effusions. 2. Prominent upper abdominal bowel gas is included. Electronically Signed: Marlena Adams MD at 5:41 EDT , Rhythm Strip Rhythm Strip: Sinus Rhythm Rate: 100 Ectopy: None Physical Exam Const alert and oriented x3 Constitutional Narrative: Pleasant female, obese, resting comfortably in bed, conversing normally, no acute distress. Satting well on 2 L nasal cannula, no increased work of breathing noted. She does appear mildly fatigued at this point. General Appearance: cooperative and comfortable HEENT normocephalic, head/scalp atraumatic, hearing grossly normal bilaterally, nasal mucous membranes and turbinates normal and moist oral mucous membranes Eyes PERRL, EOMs intact bilaterally and conjunctivae normal Neck full ROM, no lymphadenopathy and supple Lymph Lymphatic: no lymphadenopathy noted Chest inspection of chest normal Resp normal respiratory effort and no use of accessory muscles Resp Narrative: Mild bilateral crackles noted. No wheezing or rhonchi noted. Cardio regular rate, regular rhythm, no murmurs and peripheral pulses 2+ throughout GI normal to inspection, nondistended, normoactive bowel sounds, soft to palpation, non-tender and non-distended GI Narrative: No suprapubic tenderness to palpation. Extremity normal to inspection, full ROM and no pedal edema Skin no rashes or lesions noted Psych mental status grossly normal Assessment & Plan Assessment/Plan (1) Urinary tract infection: (2) Hyperglycemia due to diabetes mellitus: PLAN: Plan Patient is an 82-year-old female with history significant for been on home O2, aortic stenosis, hypertension, insulin-dependent type 2 diabetes, hypothyroidism and hyperlipidemia who presented to [facility] on 05/16 with dysuria, increased urinary frequency, and fevers and chills. 1. Severe sepsis without shock secondary to UTI Patient noted to be hypotensive to the 70s to 80s systolic, febrile to 101, and with respiratory rate in the mid 20s on admission. UA showed positive nitrites and leukocyte esterase, along with 1+ bacteria. UA also showed 1000 of glucose. Urine culture is positive for a gram-negative catina lactose retoucher photoengraving with 80-100,000 CFU, further speciation and sensitivities pending. Patient received 3.5 to 4 L of IV fluids. She had some improvement in her blood pressure, however her MAP continued however around 55-65. Chest x-ray on 05/17 showed mild volume overload in comparison to chest x-ray on 05/16, and patient was requiring this is not the case on admission. Decision was made on 05/17 to transfer her to the ICU for further monitoring. -Would hold on further fluids at this time. Use Levophed as needed to maintain a MAP greater than 65. Continue IV Zosyn, will narrow as able. 2. NSTEMI type II Patient was noted to have a troponin of 360 on admission. She denied any chest pain or shortness of breath. Given the concern for an NSTEMI, cardiology was consulted and heparin drip was started. Repeat troponin of 327, negative delta. No notable EKG changes. -Cardiology evaluated, suspected patient's elevated troponin was likely related to demand mismatch. Also noted mild to moderate aortic stenosis as noted below, with no acute changes. Okay with discontinuation of heparin drip. Continue home aspirin. Will restart home atenolol and lisinopril as able. Can follow-up on outpatient basis as needed. 3. CONSTANCE Likely prerenal in setting of sepsis as noted above, now with some component of ATN. Creatinine 1.7 on admission, baseline appears to be around 0.9-1.1. Creatinine is improved to 1.48 with significant IV fluids. -Monitor BMP daily. Patient is urinating well, no need for renal bladder ultrasound to rule out obstructive etiology. Avoid nephrotoxic medications. 4. Hypertension ? Home medications: Hydrochlorothiazide 25 mg daily, lisinopril 20 mg daily, atenolol 50 mg twice daily. Holding all medications in setting of sepsis as above. Will restart as able. 5. COPD ? Continue home inhalers 6. Hyperglycemia, insulin-dependent type 2 diabetes ? Home regimen of Lantus 20 units at night. We will continue Lantus at home dose with sliding scale insulin as needed. Patient notably has been fairly hyperglycemic since admission. Suspect this is due to her acute sepsis as noted above. Will treat with sliding scale insulin as needed. 7. Hyperlipidemia -Continue home simvastatin. 8. Hypothyroidism ? Stable. Continue home levothyroxine. DVT prophylaxis: Heparin subcu CODE STATUS: DNR CCA, DO NOT INTUBATE Expected disposition: TBD Total clinical time spent by myself addressing the patient's medical issues, reviewing all the data, and collaborating with patient's care team: 35 minutes. Charges/Coding Visit Charges Inpatient E&M: 09697 Subs Hosp L2
[2023-05-17 15:08] LABS: Partial Thromboplast Time 55.3 Seconds (24.1-36.2)
[2023-05-17 16:55] LABS: Bedside Glucose 374 mg/dL (74-106)
[2023-05-17] MEDS: Atorvastatin Calcium 20 MG Tablet PO (21:37)
[2023-05-17] MEDS: Heparin Injection (Vial) 5,000 UNIT/ML VIAL 5000 UNIT SC (21:38)
[2023-05-17] MEDS: Insulin Glargine-YFGN 100 UNIT/ML Pen 20 UNIT SC (21:38)
[2023-05-18] VITALS (17 sets, daily range): BP systolic 92–139; BP diastolic 41–81; PULSE 73–100; RESP 16–32; TEMP 36.6–37.3; O2SAT 91–97; BMI 44.6
[2023-05-18 04:22] LABS: Absolute Lymphocyte Count 1.23 X10^3/uL (0.83-4.51); Absolute Neutrophil Count 8.7 X10^3/uL (2.0-7.7); Basophil# 0.06 X10^3/uL; Basophil% 0.5 % (0-1); Eosinophil# 0.14 X10^3/uL; Eosinophils% 1.3 % (0-5); Hemoglobin 12.5 g/dL (12.0-15.0); Lymphocyte # 1.23 X10^3/ul (0.83-4.51); Lymphocyte % 11.2 % (19-41); Mean Corp Hgb Conc 32.1 g/dL (32-36); Mean Corpuscular Hgb 32.1 pg (27.0-32.0); Mean Corpuscular Volume 100.3 fL (81-99); Mean Platelet Vol. 10.4 fl (6.2-12.0); Monocyte# 0.84 X10^3/uL; Monocyte% 7.6 % (0-10); NRBC Flagged by Analyzer 0 % (0-5); Neutrophil # 8.67 X10^3/uL (2.7-7.7); Neutrophil % 78.9 % (47-70); Platelet Count 180 K/mm3 (150-450); RBC Distribution Width CV 12.7 % (11.6-14.6); RBC Distribution Width SD 46.5 fl (35.1-43.9); Red Blood Count 3.89 M/mm3 (4.2-5.4)
[2023-05-18 04:31] LABS: Partial Thromboplast Time 28.2 Seconds (24.1-36.2)
[2023-05-18 04:36] LABS: Anion Gap 9 (5-15); BUN 31 mg/dL (7-18); BUN/Creat Ratio 24.4 RATIO (10-20); Calcium,Total 8.6 mg/dL (8.5-10.1); Chloride 100 mmol/L (98-107); Creatinine, Serum 1.27 mg/dL (0.55-1.02); EST Glomerular Filtration Rate 43 mL/min (>60); Est Glom Filt Rate - Afr Amer 52 mL/min (>60); Estimated Creatinine Clearance 26.66 ml/min; Glucose 330 mg/dL (74-106); Potassium 3.8 mmol/L (3.5-5.1); Sodium Level 134 mmol/L (136-145)
[2023-05-18] MEDS: Acetaminophen 325 MG Tablet 650 MG PO (05:24)
[2023-05-18] MEDS: Levothyroxine 150 MCG Tablet PO (05:25)
[2023-05-18] MEDS: Heparin Injection (Vial) 5,000 UNIT/ML VIAL 5000 UNIT SC (05:25)
[2023-05-18 07:14] LABS: Bedside Glucose 370 mg/dL (74-106)
[2023-05-18] MEDS: Insulin Lispro 100 UNIT/ML INSULN.PEN SC ×2 (07:54→11:39)
[2023-05-18] MEDS: Aspirin E.C. 81 MG Tablet PO (07:56)
[2023-05-18] MEDS: Ceftriaxone 1 GM/50 ML BAG IV (09:22)
--- NOTE | 2023-05-18 09:36 | CASEMGMT ---
Addendum entered by Fritz Gonzalez 05/18/23 15:17: Therapy evals reviewed. Additional therapy/possible HHC recommended. RADHA MARSH to room. Discussed therapy and HHC w/pt. She states she does not need HHC or additional therapy and declines any other discharge planning needs or concerns. Addendum entered by Fritz Gonzalez 05/18/23 15:00: RADHA MARSH NOTE: Pt being discharged home. Per Karime GARCIA, home O2 testing has been completed and pt does not qualify for home O2. Original Note: RADHA MARSH NOTE: Per Dr David, pt may be ready for discharge this afternoon. RADHA MARSH to room. Pt sitting up in chair in room. Dtr @ bedside. Pt wishes to discharge home. She lives alone, but pt and dtr both state pt's grand-daughter is able to stay w/pt 24/04 for awhile. Pt is independent @ baseline. Discussed discharge planning and information given about HHC. Pt states, she is not interested in HHC at this time and was made aware if she changes her mind once she returns home, to discuss this w/her PCP. Pt and dtr voice understanding. PT/OT evals are pending. Pt made aware once they work w/her, RADHA MARSH will f/u with her to discuss any recommendations. She voices understanding. Dtr interested in MOW information. Kendra YOUSIF, made aware. Kajal MEEHAN RN, CM
--- NOTE | 2023-05-18 10:05 | CASEMGMT ---
SW met with patient and her daughter. Introduced self and role at [facility]. SW provided patient's daughter with information on Meals on Wheels, [employer]'s Meals, and [employer]. Kendra EASTON
[2023-05-18 11:59] LABS: Bedside Glucose 416 mg/dL (74-106)
--- NOTE | 2023-05-18 13:54 | DCINST_ITS ---
Discharge Instructions Diet Discharge Diet: No restrictions Activity Discharge Activity: Return to Normal Activity Weight Bearing Status: Full weight bearing Follow Up Care Please Follow Up With: Kathy Clark NP-C When: 1 to 2 weeks Test Results: Test results from this visit will be discussed in further detail at your follow- up appointment, if applicable. Pending Tests Upon Discharge: None Discharge Plan Admission Admit Date/Time: 05/16/23 18:54 Primary Reason for Your Visit: UTI Attending Provider: Brent David Primary Care Provider: Kathy Clark Consulting Providers: Harshal Veras; Ky Becker Instructions Additional Instructions / Restrictions: Please take Keflex 500 mg (1 pill) 4 times daily for the next 5 days to complete a 7-day course for your urinary tract infection. Please HOLD on taking your home lisinopril or hydrochlorothiazide for now, since your blood pressures were low while in the hospital. Would recommend having labs repeated in 5 to 7 days, and then follow-up with your primary care doctor. They can then discuss possibly restarting the lisinopril and/your hydrochlorothiazide at that time. Discharge Orders/Prescriptions Prescriptions: New cephalexin 500 mg capsule 500 mg PO Q6H 5 Days Qty: 20 0RF Continued simvastatin 40 MG tablet 40 mg PO QHS levothyroxine 150 MCG tablet 150 mcg PO DAILY Multiple Vitamin-Minerals 1 EACH tablet 1 ea PO DAILY albuterol sulfate [ProAir HFA] 1 PUFF inhaler 1 - 2 puff inhalation Q6H PRN PRN (Reason: Sob &/Or Wheezing) atenolol 50 MG tablet 50 mg PO BID budesonide-formoterol [Symbicort] 1 INHALER inhaler 2 puff inhalation BID PreserVision AREDS-2 1 EACH capsule 1 ea PO BID Novolin R Regular U100 Insulin 100 UNIT/ML solution 20 unit subcut BID Novolin N NPH U-100 Insulin 100 UNIT/ML suspension 25 unit SQ BID insulin glargine [Lantus Solostar U-100 Insulin] 100 UNITS/ML insulin pen 20 units subcut QHS acetaminophen 325 MG tablet 650 mg PO Q4H PRN PRN (Reason: Pain Score 1-3 /Temp>100.7) 0RF docusate sodium [Colace] 100 mg capsule 100 mg PO PRN aspirin [Adult Aspirin Regimen] 81 mg tablet,delayed release (DR/EC) 81 mg PO DAILY Efrainlepascual Ellipta 100-62.5-25 mcg blister with device 1 inh INHALATION DAILY Discontinued lisinopril [Zestril] 20 MG tablet 20 mg PO DAILY hydrochlorothiazide 25 MG tablet 25 mg PO DAILY Referrals / Follow Up: Kathy Clark, CLINICAL APPEALS REVIEWER-C [Primary Care Provider] - Disposition Disposition (needs filled in before D/C Order can be placed): Home, Self Care
--- NOTE | 2023-05-18 14:01 | PCM.DC.SUM ---
Providers Date of Admission: 05/16/23 Date of Discharge: 05/18/23 Primary Care Physician: Kathy Clark, LILI Consultations 05/16/23 19:44 Consult: Cardiology Routine Consulting Provider: Ky Becker Reason for Consult: NSTEMI EMERGENT Consult: No MD Notified: Yes Date Notified: 05/16/23 Time Notified: 19:04 Method of Notification: ED Physician Initiated Reason For Visit: UTI WITH HYPERGLYCEMIA AND POSSIBLE NSTEMI Diagnosis Discharge Diagnosis (1) Elevated troponin: Status: Acute Code(s): R77.8 - Other specified abnormalities of plasma proteins (2) Aortic stenosis: Status: Acute Code(s): I35.0 - Nonrheumatic aortic (valve) stenosis (3) Essential hypertension: Status: Acute Code(s): I10 - Essential (primary) hypertension Plan Patient is an 82-year-old female with history significant for been on home O2, aortic stenosis, hypertension, insulin-dependent type 2 diabetes, hypothyroidism and hyperlipidemia who presented to [facility] on 05/16 with dysuria, increased urinary frequency, and fevers and chills. 1. Severe sepsis without shock secondary to UTI Patient noted to be hypotensive to the 70s to 80s systolic, febrile to 101, and with respiratory rate in the mid 20s on admission. UA showed positive nitrites and leukocyte esterase, along with 1+ bacteria. UA also showed 1000 of glucose. Urine culture is positive for a gram-negative catina lactose rotary driller prospecting with 80-100,000 CFU, further speciation and sensitivities pending. Patient received 3.5 to 4 L of IV fluids. She had some improvement in her blood pressure, however her MAP continued however around 55-65. Chest x-ray on 05/17 showed mild volume overload in comparison to chest x-ray on 05/16, and patient was requiring this is not the case on admission. Decision was made on 05/17 to transfer her to the ICU for further monitoring. -Would hold on further fluids at this time. Use Levophed as needed to maintain a MAP greater than 65. Continue IV Zosyn, will narrow as able. 2. NSTEMI type II Patient was noted to have a troponin of 360 on admission. She denied any chest pain or shortness of breath. Given the concern for an NSTEMI, cardiology was consulted and heparin drip was started. Repeat troponin of 327, negative delta. No notable EKG changes. -Cardiology evaluated, suspected patient's elevated troponin was likely related to demand mismatch. Also noted mild to moderate aortic stenosis as noted below, with no acute changes. Okay with discontinuation of heparin drip. Continue home aspirin. Will restart home atenolol and lisinopril as able. Can follow-up on outpatient basis as needed. 3. CONSTANCE Likely prerenal in setting of sepsis as noted above, now with some component of ATN. Creatinine 1.7 on admission, baseline appears to be around 0.9-1.1. Creatinine is improved to 1.48 with significant IV fluids. -Monitor BMP daily. Patient is urinating well, no need for renal bladder ultrasound to rule out obstructive etiology. Avoid nephrotoxic medications. 4. Hypertension ? Home medications: Hydrochlorothiazide 25 mg daily, lisinopril 20 mg daily, atenolol 50 mg twice daily. Holding all medications in setting of sepsis as above. Will restart as able. 5. COPD ? Continue home inhalers 6. Hyperglycemia, insulin-dependent type 2 diabetes ? Home regimen of Lantus 20 units at night. We will continue Lantus at home dose with sliding scale insulin as needed. Patient notably has been fairly hyperglycemic since admission. Suspect this is due to her acute sepsis as noted above. Will treat with sliding scale insulin as needed. 7. Hyperlipidemia -Continue home simvastatin. 8. Hypothyroidism ? Stable. Continue home levothyroxine. DVT prophylaxis: Heparin subcu CODE STATUS: DNR CCA, DO NOT INTUBATE Expected disposition: TBD Total clinical time spent by myself addressing the patient's medical issues, reviewing all the data, and collaborating with patient's care team: 35 minutes. Medications at Discharge Home Medications albuterol sulfate 90 mcg/actuation aerosol inhaler (ProAir HFA) 1 - 2 puff inhalation Q6H PRN PRN Sob &/Or Wheezing 01/14/19 atenolol 50 mg tablet 50 mg PO BID BP 01/14/19 budesonide-formoterol HFA 160 mcg-4.5 mcg/actuation aerosol inhaler (Symbicort) 2 puff inhalation BID COPD 01/14/19 insulin NPH isoph U-100 human 100 unit/mL subcutaneous suspension (Novolin N NPH U-100 Insulin isophane) 25 unit SQ BID 01/14/19 insulin glargine 100 unit/mL (3 mL) subcutaneous pen (Lantus Solostar U-100 Insulin) 20 units subcut QHS DM 01/14/19 insulin regular human 100 unit/mL injection solution (Novolin R Regular U-100 Insulin) 20 unit subcut BID DM 01/14/19 levothyroxine 150 mcg tablet 150 mcg PO DAILY THYROID 01/14/19 multivitamin with minerals (Multiple Vitamin-Minerals tablet) 1 ea PO DAILY SUPPLEMENT 01/14/19 simvastatin 40 mg tablet 40 mg PO QHS CHOLESTEROL 01/14/19 vit C 250 mg-vit E 90 mg-zinc 40 mg-copper 1 xt-ihydfz-hunmip capsule (PreserVision AREDS-2) 1 ea PO BID EYE HEALTH 01/14/19 acetaminophen 325 mg tablet 650 mg (2 x 325 mg) PO Q4H PRN PRN Pain Score 1-3 /Temp>100.7 08/24/20 aspirin 81 mg tablet,delayed release (Adult Aspirin Regimen) 81 mg PO DAILY 05/16/23 docusate sodium 100 mg capsule (Colace) 100 mg PO PRN 05/16/23 fluticasone fur. 100 mcg-umeclid 62.5 mcg-vilant 25 mcg inhalat.powder (Trelegy Ellipta) 1 inh inhalation DAILY 05/16/23 cephalexin 500 mg capsule 500 mg PO Q6H 5 days #20 caps 05/18/23 Hospital Course Summary of Care Provided Minutes Spent on Discharge: 38 Hospital Course: Patient is an 82-year-old female with history significant for been on home O2, aortic stenosis, hypertension, insulin-dependent type 2 diabetes, hypothyroidism and hyperlipidemia who presented to [facility] on 05/16 with dysuria, increased urinary frequency, and fevers and chills. She was found to have labs consistent with a UTI. Her UA showed positive nitrates and leukocyte esterase, with 1+ bacteria. Urine culture grew pansensitive E. coli. She received IV fluid resuscitation of about 3.5 to 4 L. She was initiated on IV Zosyn in the ED and then narrowed to IV ceftriaxone once cultures p.o. available. Patient did have borderline low blood pressures even after adequate IV fluid resuscitation, so she was transferred to the ICU for possible vasopressor support. She did not end up requiring any vasopressor support, and improved fairly quickly. Suspected that patient's UTI was in part caused by her significant glycosuria, given the 1000 of glucose in her urine on admission. She remained hyperglycemic during the admission despite being on her home insulin regimen. Patient hospital course was complicated by concern for an NSTEMI type II given elevated troponin of 360 on admission. Repeat troponin was 327 with negative delta. She did not have any significant EKG changes. Cardiology evaluated and suspected that her elevated troponins were due to demand ischemia in setting of her UTI. They did not recommend any further work-up. Otherwise, patient worked with PT and OT and was okay for discharge home, especially given good family support at home. She was discharged home in stable condition. Discharge diagnoses: Severe sepsis without shock secondary to complicated UTI CONSTANCE, resolved Elevated troponins Hypertension COPD Insulin-dependent type 2 diabetes Hyperlipidemia Hypothyroidism PCP follow-up: We will hold patient's lisinopril and hydrochlorothiazide on discharge given her borderline blood pressures and resolving CONSTANCE. Continues her home amlodipine and metoprolol. Recommend repeat BMP in 5 to 7 days and can restart lisinopril hydrochlorothiazide as needed. Total clinical time spent by myself addressing the patient's discharge needs: 38 minutes. Physical Exam Const alert and oriented x3 Constitutional Narrative: Pleasant female, obese, sitting comfortably in bedside chair, conversing normally, no acute distress. General Appearance: cooperative and comfortable HEENT normocephalic, head/scalp atraumatic, hearing grossly normal bilaterally, nasal mucous membranes and turbinates normal and moist oral mucous membranes Eyes PERRL, EOMs intact bilaterally and conjunctivae normal Neck full ROM, no lymphadenopathy and supple Lymph Lymphatic: no lymphadenopathy noted Chest inspection of chest normal Resp normal respiratory effort and no use of accessory muscles Resp Narrative: Good air movement bilaterally, no crackles, wheezing or rhonchi noted. Cardio regular rate, regular rhythm, no murmurs and peripheral pulses 2+ throughout GI normal to inspection, nondistended, normoactive bowel sounds, soft to palpation, non-tender and non-distended GI Narrative: No suprapubic tenderness to palpation. Extremity normal to inspection, full ROM and no pedal edema Skin no rashes or lesions noted Psych mental status grossly normal Weight / BMI Weight Weight: 107.3 kg Body Mass Index (BMI) 44.6 ABG / Lab / Microbiology Data 05/18/23 04:15 05/18/23 04:15 Laboratory: Laboratory Results - last 24 hr 05/17/23 14:50: APTT 55.3 H 05/17/23 16:31: POC Glucose 374 H 05/17/23 21:36: POC Glucose 370 H 05/18/23 04:15: WBC 11.0, RBC 3.89 L, Hgb 12.5, Hct 39.0, MCV 100.3 H, MCH 32.1 H, MCHC 32.1, RDW Std Deviation 46.5 H, RDW Coeff of Cynthia 12.7, Plt Count 180, MPV 10.4, Immature Gran % (Auto) 0.500, Neut % (Auto) 78.9 H, Lymph % (Auto) 11.2 L, Cloud % (Auto) 7.6, Eos % (Auto) 1.3, Baso % (Auto) 0.5, Absolute Neuts (auto) 8.7 H, Absolute Lymphs (auto) 1.23, Nucleated RBC % 0, APTT 28.2, Sodium 134 L, Potassium 3.8, Chloride 100, Carbon Dioxide 25.0, Anion Gap 9, BUN 31 H, Creatinine 1.27 H, Estim Creat Clear Calc 26.66, Est GFR (MDRD) Af Amer 52 L, Est GFR (MDRD) Non-Af 43 L, BUN/Creatinine Ratio 24.4 H, Glucose 330 H, Calcium 8.6 05/18/23 11:37: POC Glucose 416 H Microbiology: Microbiology 05/16/23 15:40 Urine, Clean Catch Urine Culture - Final Escherichia coli 05/16/23 17:00 Nasal Secretion SARS-CoV-2 Antigen (Rapid) - Final D/C Instructions Discharge Diet: No restrictions Weight Bearing Status: Full weight bearing Pending Tests Upon Discharge: None Please Follow Up With: Kathy Clark, MARY ANN-C When: 1 to 2 weeks Meaningful Use Info Meaningful Use Diagnoses (Choose all that apply): None applicable Discharge Plan Admission Admit Date/Time: 05/16/23 18:54 Primary Reason for Your Visit: UTI Attending Provider: Brent David Primary Care Provider: Kathy Clark Consulting Providers: Harshal Veras Farouk Instructions Additional Instructions / Restrictions: Please take Keflex 500 mg (1 pill) 4 times daily for the next 5 days to complete a 7-day course for your urinary tract infection. Please HOLD on taking your home lisinopril or hydrochlorothiazide for now, since your blood pressures were low while in the hospital. Would recommend having labs repeated in 5 to 7 days, and then follow-up with your primary care doctor. They can then discuss possibly restarting the lisinopril and/your hydrochlorothiazide at that time. Discharge Orders/Prescriptions Prescriptions: New cephalexin 500 mg capsule 500 mg PO Q6H 5 Days Qty: 20 0RF Continued simvastatin 40 MG tablet 40 mg PO QHS levothyroxine 150 MCG tablet 150 mcg PO DAILY Multiple Vitamin-Minerals 1 EACH tablet 1 ea PO DAILY albuterol sulfate [ProAir HFA] 1 PUFF inhaler 1 - 2 puff inhalation Q6H PRN PRN (Reason: Sob &/Or Wheezing) atenolol 50 MG tablet 50 mg PO BID budesonide-formoterol [Symbicort] 1 INHALER inhaler 2 puff inhalation BID PreserVision AREDS-2 1 EACH capsule 1 ea PO BID Novolin R Regular U100 Insulin 100 UNIT/ML solution 20 unit subcut BID Novolin N NPH U-100 Insulin 100 UNIT/ML suspension 25 unit SQ BID insulin glargine [Lantus Solostar U-100 Insulin] 100 UNITS/ML insulin pen 20 units subcut QHS acetaminophen 325 MG tablet 650 mg PO Q4H PRN PRN (Reason: Pain Score 1-3 /Temp>100.7) 0RF docusate sodium [Colace] 100 mg capsule 100 mg PO PRN aspirin [Adult Aspirin Regimen] 81 mg tablet,delayed release (DR/EC) 81 mg PO DAILY Trelegy Ellipta 100-62.5-25 mcg blister with device 1 inh INHALATION DAILY Discontinued lisinopril [Zestril] 20 MG tablet 20 mg PO DAILY hydrochlorothiazide 25 MG tablet 25 mg PO DAILY Referrals / Follow Up: Kathy Clark NP-C [Primary Care Provider] - Disposition Disposition (needs filled in before D/C Order can be placed): Home, Self Care Charges/Coding Visit Charges Inpatient E&M: 00949 Disch Hosp >30min
--- NOTE | 2023-05-18 15:19 | NURSING ---
discharged with instructions & prescription in care of daughter & granddaughter per wheelchair
== END 2023-05-18 15:00 | disposition home or self-care (01) | DRG 871 ==
LOC: ED 18:46 → PCU 19:06 → ICU 05-17 14:49
PROVIDERS: Hospitalist; Admitting Provider Family Medicine; Emergency Provider Emergency Medicine; PCP Nurse Practitioner Family; Visit Provider Hospitalist
DX: A41.9 Sepsis, unspecified organism (principal); I21.A1 Myocardial infarction type 2; N17.9 Acute kidney failure, unspecified; Z68.41 Body mass index [BMI] 40.0-44.9, adult; N39.0 Urinary tract infection, site not specified; E11.65 Type 2 diabetes mellitus with hyperglycemia; J44.9 Chronic obstructive pulmonary disease, unspecified; E66.01 Morbid (severe) obesity due to excess calories; R65.20 Severe sepsis without septic shock; Z79.4 Long term (current) use of insulin; E03.9 Hypothyroidism, unspecified; I35.0 Nonrheumatic aortic (valve) stenosis; I10 Essential (primary) hypertension; I25.9 Chronic ischemic heart disease, unspecified; E78.5 Hyperlipidemia, unspecified; I44.4 Left anterior fascicular block; Z79.51 Long term (current) use of inhaled steroids; Z87.891 Personal history of nicotine dependence; Z79.82 Long term (current) use of aspirin; Z66 Do not resuscitate
CPT/HCPCS: 36415; 36600; 71045; 80048; 81001; 82803; 82962; 83036; 83605; 83735; 84484; 85025; 85610; 85730; 87040; 87077; 87086; 87088; 87186; 87811; 93005; 94002; 94640; 94762; 97162; 97166; 99285; J7030; J7040; A4216; J2405

== ENCOUNTER → 2023-07-08 | Outpatient (CLI) | payer MEDICARE, OTHER, SELFPAY ==
--- NOTE | 2023-07-08 07:36 | CT_ITS ---
INDICATION: SOLITARY PULMONARY NODULE EXAMINATION: CT CHEST WITHOUT CONTRAST - CT Chest W/O Contrast Injection TECHNIQUE: Helically acquired images were obtained of the chest. A radiation dose optimization technique was used for this scan. IV Contrast dosage and agent: None. RADIATION DOSAGE (If Supplied By Facility): CTDIvol = ( 17.23 ) mGy, DLP = ( 534 ) mGycm COMPARISON: Prior studies dated: PET/CT from 09/14/[address] from 08/31/2022 FINDINGS: LUNGS, PLEURA AND LARGE AIRWAYS: The central airways are patent. Left lower lobe calcified granuloma again noted. Bandlike atelectasis/scarring in the lingula. Redemonstration of the medial right middle lobe pulmonary nodule which was previously shown to be FDG avid. This measures approximately 1.3 x 0.9 cm on series 2 image 59 with anterior bandlike extension along the mediastinal margin extending another 1.3 cm. This is similar to previous when measured by me. No new pulmonary nodules. No pleural effusion or thickening. No pneumothorax. THYROID: No thyroid lesions. HEART AND PERICARDIUM: Heart size is normal. No pericardial effusion. CORONARY ARTERIES: Coronary artery calcification is seen. VESSELS: Thoracic aorta is not dilated. Diffuse atherosclerotic calcification. MEDIASTINUM AND LOULOU: No mediastinal or hilar adenopathy. Esophagus is unremarkable. No hiatal hernia. UPPER ABDOMEN: No acute pathology. BONES: No suspicious lytic or blastic abnormality. Degenerative change throughout the spine. CT/Chest without Contrast IMPRESSION: Similar size of the right middle lobe pulmonary nodule which was previously shown to be FDG avid. No new pulmonary nodules. Follow-up as clinically indicated. Prior PET/CT suggested tissue diagnosis. Electronically Signed: Keon Gallo MD at 15:22 EDT ,
== END | disposition home or self-care (01) ==
LOC: CT 09:50
PROVIDERS: PCP Nurse Practitioner Family; Referring Provider Internal Medicine Pulmonary Disease; Visit Provider Internal Medicine Pulmonary Disease
DX: R91.1 Solitary pulmonary nodule (principal)
CPT/HCPCS: 71250

== ENCOUNTER → 2024-01-16 | Outpatient (CLI) | payer MEDICARE, OTHER, SELFPAY ==
--- NOTE | 2024-01-16 14:07 | BD_ITS ---
STUDY: DUAL ENERGY X-RAY ABSORPTIOMETRY / DXA REASON FOR EXAM: Female, 83 years old. 733.00OsteoporosisBONE DENSITY REASON FOR EXAM TECHNIQUE: Bone Mineral Density (BMD) measurements of lumbar spine and bilateral hips were obtained. COMPARISON: Comparison is made with prior study December 23, 2021. FINDINGS: Lumbar Spine (L1-L4): g/cm2 (0.871) / T-score (-1.5) / Z-score (1.2) Findings are suggestive of osteopenia with a low fracture risk. Left Femur Total: g/cm2 (0.902) / T-score (-0.3) / Z-score (1.8) Left Femoral Neck: g/cm2 (0.687) / T-score (-1.5) / Z-score (0.9) Right Femur Total: g/cm2 (0.854) / T-score (-0.7) / Z-score (1.4) Right Femoral Neck: g/cm2 (0.632) / T-score (-2.0) / Z-score (0.4) The T-Scores on the most recent prior examination were: Lumbar Spine (L1-L4): There has been improvement of bone density since the previous examination. Left Femur Total: which represents an improvement of 3.8%. Right Femur Total: which represents an improvement of 5.1%. BD/Dexa Bone Density Study IMPRESSION: The patient is considered osteopenic as outlined below according to World Allan Organization (WHO) criteria with a moderate fracture risk. There has been improvement of bone density since the previous examination. Reference Information: The T-score is the number of standard deviations above or below the standard which is normal for young adults at their peak bone mineral density. The World Health Organization (WHO) interprets the T-scores as follows: Above -1 Normal bone density Between -1 and -2.5 Osteopenia Equal to / or below -2.5 Osteoporosis As a practical clinical guideline, osteopenia may be graded as follows: Mild -1 through -1.5 Moderate -1.6 through -2.0 Severe -2.1 through -2.4 The Z-score is the number of standard deviations above or below age-matched controls. A Z-score of less than -1.5 would be considered abnormal. References: 1. NIH Osteoporosis and Related Bone Diseases www osteo.org 2. International Society for Clinical Densitometry www iscd.org 3. National Osteoporosis Foundation www nof.org Electronically Signed: Keenan Perez MD at 10:53 EDT ,
--- NOTE | 2024-01-16 14:07 | BI_ITS ---
MAMMOGRAPHY - BILATERAL SCREENING REASON FOR EXAM: Female, 83 years old. Routine annual screening examination. PERTINENT HISTORY: Non-contributory. TECHNIQUE: Digital bilateral breast herve (3D mammographic acquisition) in the CC and MLO projections. 2-D mediolateral oblique (MLO) and craniocaudad (CC) views of both breasts were obtained. CAD: Full Field Digital Mammography with Computer Added Detection was performed. COMPARISON: Comparison is made with prior study January 11, 2023 and December 23, 2021. FINDINGS: Breast Composition: The breasts are heterogeneously dense, which may obscure small masses. There are no dominant masses or suspicious calcifications. No other significant abnormalities are identified. There has been no significant change since the prior study. BI/SCRN MAMM (CAD)W/HERVE BILAT IMPRESSION: Stable bilateral screening mammogram. Yearly follow-up mammogram recommended. (A) ASSESSMENT CATEGORY: BIRADS Category 1: Negative. A letter regarding these results will be sent to the patient by the facility within 30 days. Approximately 10% of breast cancers are not detected by mammography. A normal mammogram should not delay biopsy of a clinically suspicious abnormality. [id number] Electronically Signed: Keenan Perez MD at 15:33 EDT ,
== END | disposition home or self-care (01) ==
LOC: OPBD 14:04
PROVIDERS: PCP Nurse Practitioner Family; Referring Provider Nurse Practitioner Family; Visit Provider Nurse Practitioner Family
DX: Z12.31 Encounter for screening mammogram for malignant neoplasm of breast (principal); M81.0 Age-related osteoporosis without current pathological fracture
CPT/HCPCS: 77063; 77067; 77080

== ENCOUNTER → 2024-03-11 | Outpatient (CLI) | payer MEDICARE, OTHER, SELFPAY ==
--- NOTE | 2024-03-11 09:47 | ECHOCS_ITS ---
Version 2 Reason For Study: AORTIC STENOSIS Procedure This was a 2D Doppler, Color Flow transthoracic echocardiogram. Contrast injection was performed. The study was technically difficult. Exam performed in department. Left Ventricle Normal left ventricle. Left ventricular systolic function is normal. The estimated ejection fraction is 65 %. No regional wall motion abnormalities noted. Right Ventricle Normal RV size. Normal systolic function. Atria Normal left atrium. Normal right atrium. Tricuspid Valve Normal tricuspid valve. Mild (1+) tricuspid valve insufficiency. Pulmonary artery systolic pressure is 36 mmHg. Aortic Valve Trisinus/trileaflet aortic valve. Mild focal aortic valve calcification. Peak aortic valve gradient 57 mmHg. Mean aortic valve gradient 36 mmHg. Moderate to severe aortic stenosis. Mild (1+) aortic valve insufficiency. Pulmonic Valve The pulmonic valve is not well visualized. Great Vessels Mildly dilated aortic root. The pulmonary artery is normal size. Normal inferior vena cava. Pericardium/Pleural No pericardial effusion. Medication 22 gauge I.V. with prn adaptor inserted into right arm. Diluted definity 2ml given slow IV push to enhance endocardial definition. MMode/2D Measurements & Calculations LVIDd: 3.6 cm IVSd: 1.8 cm LVOT diam: 2.1 cm LVIDs: 2.2 cm LVPWd: 1.4 cm LVOT area: 3.4 cm2 RVDd: 3.5 cm FS: 38.8 % Ao root diam: 4.0 cm LAV(MOD-bp): 56.7 ml LVAd ap4: 31.6 cm2 LAV(MOD-bp) Indexed: 28.3 ml/m2 LVLd ap4: 7.7 cm LAV(MOD-sp2): 55.4 ml EDV(MOD-sp4): 102.1 ml LAV(MOD-sp4): 58.0 ml EDV(sp4-el): 109.4 ml LVAs ap4: 16.8 cm2 LVLs ap4: 6.0 cm ESV(MOD-sp4): 37.2 ml ESV(sp4-el): 40.2 ml EF(MOD-sp4): 63.6 % EF(sp4-el): 63.2 % LVAd ap2: 24.3 cm2 SV(MOD-sp4): 64.9 ml SV(MOD-sp2): 42.0 ml LVLd ap2: 7.4 cm EDV(MOD-sp2): 65.9 ml EDV(sp2-el): 68.0 ml LVAs ap2: 13.5 cm2 LVLs ap2: 6.1 cm ESV(MOD-sp2): 23.9 ml ESV(sp2-el): 25.1 ml EF(MOD-sp2): 63.8 % SV(sp4-el): 69.2 ml LA dimension(2D): 4.8 cm LA A4 area: 20.0 cm2 RA A4 area: 11.6 cm2 TAPSE: 2.5 cm Time Measurements MV dec time: 0.14 sec Doppler Measurements & Calculations MV E max scotty: 99.5 cm/sec Lat Peak E' Scotty: 10.3 cm/sec Med Peak E' Scotty: 6.3 cm/sec MV A max scotty: 83.1 cm/sec E/E' lat: 9.7 E/E' med: 15.8 MV E/A: 1.2 Ao V2 max: 377.3 cm/sec LV V1 max: 119.1 cm/sec MV dec slope: 700.1 cm/sec2 Ao max P.0 mmHg LV V1 max P.7 mmHg Ao V2 mean: 290.4 cm/sec LV V1 mean P.2 mmHg Ao mean P.8 mmHg LV V1 mean: 84.9 cm/sec Ao V2 VTI: 97.3 cm LV V1 VTI: 30.5 cm AV (velocity ratio): 0.31 ANNETTE(I,D): 1.1 cm2 ANNETTE(V,D): 1.1 cm2 SV(LVOT): 104.2 ml PA V2 max: 107.6 cm/sec TR max scotty: 293.0 cm/sec PA max PG (full): 0.96 mmHg TR max P.3 mmHg ECHO/Echo Complete W/ Contrast Interpretation Summary Normal left ventricle. Left ventricular systolic function is normal. The estimated ejection fraction is 65 %. Mildly dilated aortic root. Mild focal aortic valve calcification. Mean aortic valve gradient 36 mmHg. Mild (1+) aortic valve insufficiency. Moderate to severe aortic stenosis. Contrast injection was performed. Ordering Physician: Kathy Clark Referring Physician: Kathy Clark Performed By: Velia Case RDCS
== END | disposition home or self-care (01) ==
PROVIDERS: PCP Nurse Practitioner Family; Referring Provider Nurse Practitioner Family; Visit Provider Nurse Practitioner Family
DX: I35.0 Nonrheumatic aortic (valve) stenosis (principal)
CPT/HCPCS: 93306; Q9957; A4216; C8929

== ENCOUNTER → 2024-04-11 | Outpatient (CLI) | payer MEDICARE, OTHER, SELFPAY ==
[2024-04-11 15:15] LABS: Absolute Lymphocyte Count 2.42 X10^3/uL (0.83-4.51); Absolute Neutrophil Count 4.9 X10^3/uL (2.0-7.7); Basophil# 0.06 X10^3/uL; Basophil% 0.7 % (0-1); Eosinophil# 0.18 X10^3/uL; Eosinophils% 2.2 % (0-5); Hemoglobin 13.5 g/dL (12.0-15.0); Lymphocyte # 2.42 X10^3/ul (0.83-4.51); Lymphocyte % 29.8 % (19-41); Mean Corp Hgb Conc 32.9 g/dL (32-36); Mean Corpuscular Hgb 31.3 pg (27.0-32.0); Mean Corpuscular Volume 95.1 fL (81-99); Mean Platelet Vol. 9.9 fl (6.2-12.0); Monocyte# 0.59 X10^3/uL; Monocyte% 7.3 % (0-10); NRBC Flagged by Analyzer 0 % (0-5); Neutrophil # 4.86 X10^3/uL (2.7-7.7); Neutrophil % 59.8 % (47-70); Platelet Count 206 K/mm3 (150-450); RBC Distribution Width CV 12.4 % (11.6-14.6); RBC Distribution Width SD 43.2 fl (35.1-43.9); Red Blood Count 4.31 M/mm3 (4.2-5.4); White Blood Count 8.1 K/mm3 (4.4-11.0)
[2024-04-11 15:50] LABS: ALB/GLOB Ratio 0.9 RATIO (0.9-2.4); AST(SGOT) 13 U/L (15-37); Alanine Aminotransfer ALT/SGPT 20 U/L (13-56); Albumin, Serum 3.2 g/dL (3.2-5.0); Alkaline Phosphatase 77 U/L (45-117); Anion Gap 7 (5-15); BUN 17 mg/dL (7-18); Calcium,Total 9.3 mg/dL (8.5-10.1); Chloride 104 mmol/L (98-107); Creatinine, Serum 0.94 mg/dL (0.55-1.02); EST Glomerular Filtration Rate 60 mL/min (>60); Est Glom Filt Rate - Afr Amer 73 mL/min (>60); Globulin 3.6 g/dL (2.2-4.2); Glucose 295 mg/dL (74-106); Potassium 4.6 mmol/L (3.5-5.1); Protein, Total 6.8 g/dL (6.4-8.2); Sodium Level 139 mmol/L (136-145)
== END | disposition home or self-care (01) ==
LOC: LAB 14:23
PROVIDERS: PCP Nurse Practitioner Family; Referring Provider Internal Medicine Cardiovascular Disease; Visit Provider Internal Medicine Cardiovascular Disease
DX: I35.0 Nonrheumatic aortic (valve) stenosis (principal)
CPT/HCPCS: 36415; 80053; 85025

== ENCOUNTER → 2024-05-13 | Outpatient (CLI) | payer MEDICARE, OTHER, SELFPAY ==
[2024-05-13 07:31] LABS: Absolute Lymphocyte Count 2.14 X10^3/uL (0.83-4.51); Basophil# 0.06 X10^3/uL; Basophil% 0.9 % (0-1); Eosinophil# 0.22 X10^3/uL; Eosinophils% 3.1 % (0-5); Hematocrit 40.3 % (37-47); Hemoglobin 13.1 g/dL (12.0-15.0); Lymphocyte # 2.14 X10^3/ul (0.83-4.51); Lymphocyte % 30.5 % (19-41); Mean Corp Hgb Conc 32.5 g/dL (32-36); Mean Corpuscular Hgb 31.8 pg (27.0-32.0); Mean Corpuscular Volume 97.8 fL (81-99); Mean Platelet Vol. 9.4 fl (6.2-12.0); Monocyte# 0.56 X10^3/uL; NRBC Flagged by Analyzer 0 % (0-5); Neutrophil # 3.97 X10^3/uL (2.7-7.7); Neutrophil % 56.6 % (47-70); Platelet Count 193 K/mm3 (150-450); RBC Distribution Width CV 12.7 % (11.6-14.6); RBC Distribution Width SD 45.1 fl (35.1-43.9); Red Blood Count 4.12 M/mm3 (4.2-5.4)
[2024-05-13 10:31] LABS: AST(SGOT) 14 U/L (15-37); Alanine Aminotransfer ALT/SGPT 16 U/L (13-56); Albumin, Serum 3.4 g/dL (3.2-5.0); Alkaline Phosphatase 73 U/L (45-117); Anion Gap 5 (5-15); BUN 17 mg/dL (7-18); BUN/Creat Ratio 20.9 RATIO (10-20); Calcium,Total 9.2 mg/dL (8.5-10.1); Chloride 105 mmol/L (98-107); Creatinine, Serum 0.81 mg/dL (0.55-1.02); EST Glomerular Filtration Rate 72 mL/min (>60); Est Glom Filt Rate - Afr Amer 87 mL/min (>60); Globulin 3.4 g/dL (2.2-4.2); Glucose 211 mg/dL (74-106); Potassium 4.6 mmol/L (3.5-5.1); Protein, Total 6.8 g/dL (6.4-8.2); Sodium Level 139 mmol/L (136-145)
== END | disposition home or self-care (01) ==
LOC: LAB 07:09
PROVIDERS: PCP Nurse Practitioner Family
DX: I35.0 Nonrheumatic aortic (valve) stenosis (principal)
CPT/HCPCS: 36415; 80053; 85025

== ENCOUNTER → 2024-05-31 | Outpatient (CLI) | payer MEDICARE, OTHER, SELFPAY ==
[2024-05-31 08:28] LABS: Anion Gap 4 (5-15); BUN 16 mg/dL (7-18); BUN/Creat Ratio 18.8 RATIO (10-20); Calcium,Total 9.4 mg/dL (8.5-10.1); Chloride 104 mmol/L (98-107); Creatinine, Serum 0.85 mg/dL (0.55-1.02); EST Glomerular Filtration Rate 68 mL/min (>60); Est Glom Filt Rate - Afr Amer 82 mL/min (>60); Glucose 232 mg/dL (74-106); Potassium 4.5 mmol/L (3.5-5.1); Sodium Level 138 mmol/L (136-145)
== END | disposition home or self-care (01) ==
LOC: LAB.FUTURE 07:13 → LAB 07:15
PROVIDERS: PCP Nurse Practitioner Family; Referring Provider Nurse Practitioner Family; Visit Provider Nurse Practitioner Family
DX: E03.9 Hypothyroidism, unspecified (principal); I35.0 Nonrheumatic aortic (valve) stenosis
CPT/HCPCS: 36415; 80048; 84443

== ENCOUNTER → 2024-07-08 | Outpatient (CLI) | payer MEDICARE, OTHER, SELFPAY ==
--- NOTE | 2024-07-08 08:05 | CR.HP_ITS ---
CR - History & Physical General Arrival date:: 07/08/24 Arrival time:: 08:06 Date of Referral:: 06/24/24 Date of CR Evaluation:: 07/08/24 Referring Physician: Dr. Bhupinder Siu Primary Diagnosis: S/P TAVR History of Present Cardiac Event Onset Date Heart valve replacement or repair:: Yes (onset 06/17/24) Medications Ambulatory Orders ?Medication ?Instructions ?Recorded albuterol sulfate 90 mcg/actuation 1 - 2 puff inhalation Q6H PRN PRN 01/14/19 aerosol inhaler (ProAir HFA) Sob &/Or Wheezing atenolol 50 mg tablet 50 mg PO BID BP 01/14/19 insulin NPH isoph U-100 human 100 25 unit SQ BID 01/14/19 unit/mL subcutaneous suspension (Novolin N NPH U-100 Insulin isophane) insulin glargine 100 unit/mL (3 20 units subcut QHS DM 01/14/19 mL) subcutaneous pen (Lantus Solostar U-100 Insulin) insulin regular human 100 unit/mL 20 unit subcut BID DM 01/14/19 injection solution (Novolin R Regular U-100 Insulin) levothyroxine 150 mcg tablet 150 mcg PO DAILY THYROID 01/14/19 multivitamin with minerals 1 ea PO DAILY SUPPLEMENT 01/14/19 (Multiple Vitamin-Minerals tablet) simvastatin 40 mg tablet 40 mg PO QHS CHOLESTEROL 01/14/19 vit C 250 mg-vit E 90 mg-zinc 40 1 ea PO BID EYE HEALTH 01/14/19 mg-copper 1 [id number] capsule (PreserVision AREDS-2) aspirin 81 mg tablet,delayed 81 mg PO DAILY 05/16/23 release (Adult Aspirin Regimen) fluticasone fur. 100 mcg-umeclid 1 inh inhalation DAILY 05/16/23 62.5 mcg-vilant 25 mcg inhalat.powder (Trelegy Ellipta) lisinopril 40 mg tablet 40 mg PO QDAY 02/20/24 Allergies Allergies No Known Allergies Allergy (Verified 04/11/24 13:31) Sleep Disorder Evaluation Hx of Sleep Apnea: No Do you snore loudly (louder than talking or can be heard through closed doors)?: Yes (pt declines sleep study) Do you often feel tired/ fatigued/ sleepy during daytime?: No Has anyone observed you stop breathing during sleep?: No History of Hypertension (for STOP score): Yes STOP Results: Positive Advanced Directives Advanced Directives Power of Tipple Tender: Yes Living Will: Yes Advance Directives Information Provided: No Advance Directives on File: Yes DNR Order?:: No Past Medical History Covid-19 Screening Physicial Symptoms Other Clinical Concerns Exposure Risk Pertinent Comorbidities 65 years or older:: Yes Has a serious heart condition:: Yes Severely obese (Body Mass Index of 40 or higher):: Yes Diabetic:: Yes Past Medical Illness Past Medical History (Updated 04/11/24 @ 14:[address] Ramos Esteves MD) Hyperlipidemia E78.5 COPD (chronic obstructive pulmonary disease) J44.9 Hypothyroidism E03.9 Diabetes mellitus E11.9 Compression fracture Personal history of colonic polyps Z86.010 Past Surgical History Past Surgical History Status post cholecystectomy Z90.49 Status post hysterectomy Z90.710 Family History Summary Family History Other Diabetes Heart disease Social History Smoking History Smoking Status: Former smoker Years Smokin Packs Smoked per Day: 0.5 (pt stopped 5 years ago) Alcohol Use Alcohol Usage: Yes (occas.) Substance Abuse Hx Substance Use: No Occupation Occupation (List type of work in comments):: Retired Social Environment Status Marital Status: Current Living Arrangements Living Environment:: Alone Children How many children do you have?: 2 Do any of your children live nearby?: Yes Safety Do you feel safe in your surroundings?: Yes Assistance Do you need any assistance at home?: no Review of Systems Review of Systems Hints Review of Present Symptoms: Reports Shortness of Breath with Exertion, Fatigue, Appetite - Normal, Appetite - Special Diet and Sleep - Normal; Denies Shortness of Breath at Rest, PVD, Operative Discomfort, Angina, Wound Healing, Dizziness/Lightheadedness, Heart Arrhythmia/Irregularities or Sexual Changes Pain Is Patient Pain Free?: No Pain Location: back and lower extremity Pain Level: 8/10 Risk Factor Assessment Chief Complaint Chief Complaint: S/P TAVR Vital Signs Pulse Ox: 95 Blood Pressure: 150/60 Pulse Pulse Rate: 58 Pulse Rhythm: Irregular Hypertension Blood Pressure Sitting - Right Arm: 150/60 Diabetes Diabetic History: Type II (declines teleservices representative) Nutrition Referral for Diabetes: No Obesity Height: 5 ft 1 in Weight:: 234 lb Weight in Pounds: 234.0 lbs Body Mass Index (BMI): 44.1 Physical Inactivity Physical Inactivity: Reg Exercise 30 min/day Risk Stratification Risk Guidelines: Moderate Risk: Risk Factor for Smoking, Risk Factor for Sedentary Lifestyle and Risk Factor for Depression and Highest Risk: Risk Factor for Dyslipidemia, Risk Factor for Diabetes, Risk Factor for Obesity and Risk Factor for Hypertension For Smoking Smoking Risk Guidelines For Dyslipidemia Dyslipidemia Risk Guidelines For Diabetes Mellitus Diabetes Risk Guidelines For Obesity/Overweight Obesity/Overweight Risk Guidelines For Hypertension Hypertension Risk Guidelines For Sedentary Lifestyle Sedentary Lifestyle Risk Guidelines For Depression Depression Risk Guidelines Family History Family History Other Diabetes Heart disease Motivation Motivation to Participate On a scale of 1 to 10, how prepared are you to commit to attending program?: 1 What do you see as barriers to successfully being able to complete the program?: none What do you see as the benefits of succesfully completing the program? In other words, what do you hope to get out of participating in the program?: unsure Are there issues you are dealing with that will interfere with completing the program?: no Do you have a spouse or signficant other, family or friends who will help support you to complete the program?: yes
[2024-07-08 08:19] VITALS: BP 150/60; PULSE 58; O2SAT 95
--- NOTE | 2024-07-08 08:29 | PCM.CR.ITP ---
Diagnosis General Information Admitting Diagnosis: s/p TAVR Personal Learning Style:: Audio/Visual Barriers to Learning: No Barriers Stage of change r/t lifestyle modifications:: Contemplation Gave educational material for:: Treating Heart Disease, How The Heart Works, What it means to have Heart Disease, How Coronary Artery Disease is Diagnosed, Heart Procedures, What Heart Medications Do, Risk Factors & Modifications, Living an Active Life, Nutrition, Emotions & Heart Disease, Stress Management & Relaxation and Sleep Disorders & Heart Disease Diagnosis & Disease Process Outcomes/Goals: Pt IDs own risk factors & lifestyle modifications by Session 10, Verbalizes symptoms of angina & response by session 3., Pt independently manages and Other Additional Outcomes/Goals: Plan/Interventions: Assist Pt to ID & engage in lifestyle modification to reduce CVD risk, Instruct on individual risk factors, Review symptoms of angina & emergency actions, Review secondary diagnosis & identify educational needs. and Other see comment 30 day Reassessments:: Not Met 30 day Reassessments:: Not Met 30 day Reassessments:: Not Met 30 day Reassessments:: Not Met Final Reassessments:: Not Met Safety Referral to Physical Therapy: No Referral to [facility] Case Management: No Fall Risk Assessed:: Yes Assistive Devices:: Cane and Wheelchair Exercise - Initial Assessment Visit Date of Eval: 07/08/24 (initial eval ) Mets: Pre-: >3 METS for 30 minutes by discharge, >5 METS for 30 minutes by discharge, >7 METS for 30 minutes by discharge and Unable to meet goal due to: (see comment below) Physician Prescribed Exercise Modalities: Treadmill, [employer]ird[employer] AD-7, SciFit Stepper, [employer] Pro-II Ergometer and [employer] Lateral Susan Moore Frequency: 3x/week for 12 weeks [36 sessions] Intensity: 60-80% of age predicted maximum heart rate reserve Duration: 30 - 45 minutes Current METSs:: 3 Target Heart Rate:: 83-104 Resting Blood Pressure: 150/60 EKG Type: SR with 1st degree A-V block, nonspecific T abnormality Outcomes & Goals Goals:: Verbalizes understanding of THR, RPE & goal METS by session 6, Documents in home exercise log/reports 30 min aerobic 5 day/wk by DC, Demonstrates accurate pulse taking by DC and Other additional outcome/goals: see below Intervention & Plan Exercise Program Goals: Instruct on personal THR & RPE, Instruct on MET level & personal MET goal, Show patient to take own pulse /validate performance until accurate, Instruct on home exercise and Other additional plan/int Physical Activity Home Exercise Physical Activity - Home Exercise: Safe Exercise, Warm-up, Self-monitoring, Cool-Down, Home Exercise > 30 min Daily and Sitting Time <3 hours/daily Outcomes & Goals Outcomes/Goals: Demonstrates correct Warm-up/exercise Cool-Down (S3) if = 2.5 METs, Verbalizes symptoms of exercise intolerance by Session 3 (S3), Demonstrate safe equipment use (S3) & follows exercise prescrition (6) and Other: See below Intervention & Plan Plan/Intervention: Instruct warm-up & cool-down if exercising at > 2 METs, Instruct on symptoms of exercise intolerance & actions to take, Instruct & monitor on saf, Assess intial functional capacity & safety risk and Other See below Nutrition - Initial Assessment Program Goals Nutrition Program Goals Patient has diagnosis of Hyperlipidemia (ICD E78)?: Yes Visit Date of Eval: 07/08/24 (initial eval ) Cholesterol/Lipids (Other Core Measures) Determine presence & major risk factors that modify LDL goal: Cigarette smoking, Hypertension or hypertensive medication, Low HDL cholesterol <40 mg/dL*, Family history of premature CHD in Male < 55 years: female <65 yearsFa and Age men > 45 years; women >/= 55 years Outcomes/Goals: Pt IDs own risk factors & lifestyle modifications by Session 10, Verbalizes symptoms of angina & response by session 3., Pt independently manages and Other Additional Outcomes/Goals: Intervention/Plan: Advocate for lipid panel cholesterol medication if applicable, Instruct on personal lipid levels & lipid goals/NCEP guidelines, Instruct on cholesterol and Other additional plan/int Referral to dietitian:: No (pt declines) Diabetes (Other Core Measures) Diabetes Type: Diagnosis Type II ICD-10 E11 Insulin dependent injection/pump?: Yes Non-Insulin Dependent?: No Do you monitor your blood sugar at home?: Yes Referral to Diabetic Clinic:: No (declines) Outcomes/Goals:: Able to state symptoms of, Able to state, Able to state and Other additional Intervention/Plan:: Instruct on, Refer to, Instruct on and Other Weight Mgt (Other Care) Height: 5 ft 1 in Weight:: 234 lb BMI: 44.1 Outcomes/Goals: Pt sets, maintains & shows weight loss goal & trend during rehab and Other additional outcomes/goals Intervention/Plan: Instruct on ideal BMI & set weight loss goal w/patient, Assist pt to ID & incorporate diet changes for weight loss by S9, Refer to Structured Weight Loss program as appropriate, Encourage goal of using 250-300dcal per session for weight loss and Other additional plan/interventions Healthy Eating Habits Will attend diet classes:: Yes Outcomes/Goals:: Consume diet rich in vegs,fruits,whole grain/high fiber,fish,lean meat, Limit sat/trans fats,cholesterol & added salts & sugars and Other additional outcome/goals: Intervention/Plan:: Assess current eating habits and Other Additional plan/interventions Education Gave educational materials for:: Signs & symptoms of hypoglycemia, Signs & symptoms of hyperglycemia, Relate diabetes to coronary artery disease and Healthy eating Core - Initial Assessment Visit Date of Eval: 07/08/24 (initial eval ) Medication Compliance Preventative Medication(s):: Aspirin, REYMUNDO inhibitor, Statin/lipid and Beta tammy H/O mental health issues: depression, anxiety, or addiction?: No Doesn?t believe in the benefits of treatment?: No Believes medications are unnecessary or harmful?: No Has a concern about medication side effects?: No Expresses concern over the cost of medications?: No Outcomes/Goals: Verbalizes medications,desired effect & common side effects @ DC, Pt self-reports following medication regimen, Keeps card in wallet w/medications listed by DC and Other additional outcome/goals: Interventions/plans: Instruct on medication effects & side effects, Review medication list w/patient every two weeks, Instruct importance of taking meds as ordered & assist problem solving and Other additional Tobacco Use Tobacco Use: Non-smoker How long ago did you quit using tobacco products?: Greater than or equal to 6 months ago Years Smokin Do you use smokeless tobacco?: No Hypertension Hypertension Diagnosis:: Hypertension ICD-10 I10 Resting Blood Pressure:: 150/60 [place] [employer] Hypertension Guidelines Outcomes/Goals: Able to verbalize/achieve optimal blood pressure <130/80, Incorporates diet changes & exercise for blood pressure control by DC and Other additional outcomes/goals Interventions/plan: Instruct on optimal blood pressure, hypertension & medications, Instruct on effects of sodium, alcohol, stress, exercise &hypertension and Other additional plan/interventions Tobacco Cessation Referral Smoking Cessation Referral:: No Individual Education/Counseling:: No Education Schedule Given:: Yes Psychosocial - Initial Assess VIsit Date of Eval: 07/08/24 (initial eval ) History of previous Mental disease:: No Target Goals Target Goals Psychosocial Test Tool Used:: Mayank Yu QOL Cardiac and PHQ-9 Questionnaire phq-9 Severity Referral to Behavioral Health PS - Interventions: Yes: Attend Stress Management Classes Outcomes/Goals: See list Psychosocial Outcomes/Goals:: ID's personal stressors & 2 strategies to manage stress by discharge and Other Additional outcome/goals: Intervention/Plan: See List Interventions/Plan:: Assess stressors,coping strategies & signs of derpression on admission, Instruct/assist pt to develop coping & personal stress Mgt strategies, Refer to Behavioral Health if appropriate, Refer to Physician if appropriate, Instruct patient to recognize signs & symptoms of depression, Instruct patient to recog and Other additional plan/intervention Patient Health Questionnaire PHQ-9 Screening Initial Assessment: 1. Little interest or pleasure in doing things: Not at all 2. Feeling down, depressed, or hopeless: Not at all 3. Trouble falling or staying asleep, or sleeping too much: Not at all 4. Feeling tired or having little energy: Not at all 5. Poor appetite or overeating: Not at all 6. Feeling bad about yourself -- or that you are a failure or have let yourself or your family down: Not at all 7. Trouble concentrating on things, such as reading the newspaper or watching television: Not at all 8. Moving or speaking so slowly that other people could have noticed. Or the opposite - being so fidgety or restless that you have been moving around a lot more than usual: Not at all 9. Thoughts that you would be better off , or of hurting yourself in some way: Not at all How difficult have these problems made it for you to do your work, take care of things at home, or get along with other people?: Not difficult at all Total Score: 0 DIEGO-Q SV Test Statements CAD is a disease of the arteries in the heart: False Examples of risk factors for heart disease: True Angina is chest pain or discomfort: I Don't Know The benefits of resistance training include: True Eating more meat and dairy products: I Don't Know Anti-platelet medications such as aspirin are important: I Don't Know The only effective way to manage stress: False An exercise warm-up slowly increases heart rate: True Prepared, processed foods usually have high sodium: True Depression is common after a heart attack: False The statin medications lower cholesterol: I Don't Know To control blood pressure, lower the amount of sodium: I Don't Know If someone gets chest discomfort during walking: False Transfats are partially hydrogenated vegetable oils: I Don't Know Sleep apnea that is not treated increases the risk: I Don't Know To control cholesterol, one should become a vegetarian: I Don't Know Someone knows if he/she is exercising at the right level: I Don't Know Diabetes cannot be prevented with exercise & health eating: I Don't Know Stress is a large risk for heart attack: I Don't Know A diet that can help lower blood pressure is rich in: I Don't Know Total Score Total Correct Responses: 7 Self-Efficacy 6-Item Scale Initial Assessment: We would like to know how confident you are in doing certain activities. Please select your confidence level for: Fatigue Select Number: 7 Physical Discomfort or Pain Select Number: 7 Emotional Distress Select Number: 7 Other Symptoms or Health Problems Select Number: 7 Different Tasks and Activities Select Number: 7 Medication Select Number: 8 Total Score:: 7 Nutrition Survey Nutrition Survey Instructions Scoring Instructions Nutrition Survey Initial: Have you lost >10 lbs over the past 2 months without trying?: No Are you following a special diet at home for diabetes, low fat, or low salt?: No Are you interested in meeting with a dietitian for help understanding your diet?: No Do you eat less than 3 meals a day?: No Do you eat fatty meats ([place], sausage, ribs, etc), fried foods, desserts, large amounts of salad dressings, margarine, butter, or cheese most days?: Yes Do you have food allergies? [Enter types in comment field]: No Do you eat in restaurants more than 3 times a week?: No Do you season food with salt, seasoning salt, or garlic salt?: Yes Do you used canned, boxed, frozen meals, or soups, seasoning packets?: Yes Total Score:: 3 Exercise - 30-day Assessment Physician Prescribed Exercise Modalities: Treadmill, Sanjay Parker AD-7, SciFit Stepper, Sci[employer] Pro-II Ergometer and SciFit Lateral Susan Moore Exercise - 60-day Assessment Physician Prescribed Exercise Modalities: Treadmill, [employer] AD-7, SciFit Stepper, [employer] Pro-II Ergometer and SciFit Lateral Insurance Claims Adjuster Exercise - 90-day Assessment Physician Prescribed Exercise Modalities: Treadmill, [employer] AD-7, SciFit Stepper, [employer] Pro-II Ergometer and SciFit Lateral Susan Moore Exercise - Final/Discharge Physician Prescribed Exercise Modalities: Treadmill, [employer] AD-7, SciFit Stepper, [employer] Pro-II Ergometer and SciFit Lateral Insurance Claims Adjuster Frequency: 3x/week for 12 weeks [36 sessions] Intensity: 60-80% of age predicted maximum heart rate reserve Current METSs:: 3 Target Heart Rate:: 83-104 Nutrition - 30-Day Assessment Weight Mgt (Other Care) Height: 5 ft 1 in Weight:: 234 lb BMI: 44.1 Nutrition - 60-Day Assessment Weight Mgt (Other Care) Height: 5 ft 1 in Weight:: 234 lb BMI: 44.1 Core - 30-Day Assessment Tobacco Use Years Smokin Core - Final Assessment Hypertension Resting Blood Pressure:: 150/60 [employer] [employer] Hypertension Guidelines Core - 60-Day Assessment Hypertension Resting Blood Pressure:: 150/60 [place] [employer] Hypertension Guidelines Psychosocial - 30-Day Assess Target Goals Target Goals Referral to Behavioral Health PS - Interventions: Yes: Attend Stress Management Classes Psychosocial - 60-Day Assess Target Goals Target Goals Referral to Behavioral Health PS - Interventions: Yes: Attend Stress Management Classes Psychosocial - 90-Day Assess Target Goals Target Goals Referral to Behavioral Health PS - Interventions: Yes: Attend Stress Management Classes Psychosocial - Final Assessmen Target Goals Target Goals Referral to Behavioral Health PS - Interventions: Yes: Attend Stress Management Classes Nutrition - 90-Day Assessment Weight Mgt (Other Care) Height: 5 ft 1 in Weight:: 234 lb BMI: 44.1 Nutrition - Final Assessment Program Goals Patient has diagnosis of Hyperlipidemia (ICD E78)?: Yes Weight Mgt (Other Care) Height: 5 ft 1 in Weight:: 234 lb BMI: 44.1
[2024-07-08 08:56] VITALS: BP 150/60; BMI 44.1
== END | disposition home or self-care (01) ==
PROVIDERS: PCP Nurse Practitioner Family
DX: Z98.890 Other specified postprocedural states (principal)

== ENCOUNTER → 2024-07-08 | Outpatient (CLI) | payer MEDICARE, OTHER, SELFPAY ==
--- NOTE | 2024-07-08 07:45 | CT_ITS ---
INDICATION: COPD EXAMINATION: CT CHEST WITHOUT CONTRAST - CT Chest W/O Contrast Injection TECHNIQUE: Helically acquired images were obtained of the chest. The protocol utilizes one or more of the following dose reduction techniques: automated exposure control, adjustment of mA and/or kV according to patient size,and/or use of iterative reconstruction technique. IV Contrast dosage and agent: None. RADIATION DOSAGE (If Supplied By Facility): CTDIvol = ( 17.84 ) mGy, DLP = ( 565.98 ) mGycm COMPARISON: Prior study dated: 07/08/2023 FINDINGS: LUNGS, PLEURA AND LARGE AIRWAYS: Essentially stable elongated nodular in the right middle lobe best seen on image 59 series 4 measuring about 2.7 x 0.8 x 1.6 cm essentially unchanged since prior examination as measured on this examination is a calcified granuloma in the left lower lobe. No new nodules are seen. No new infiltrate. No pleural effusion or thickening. No pneumothorax. THYROID: No thyroid lesions. HEART AND PERICARDIUM: Heart size is normal. No pericardial effusion. Aortic stent is seen. CORONARY ARTERIES: Coronary artery calcification is seen. VESSELS: Atherosclerotic calcifications of the thoracic aorta without evidence of aneurysm. MEDIASTINUM AND LOULOU: No mediastinal or hilar adenopathy. Esophagus is unremarkable. No hiatal hernia. UPPER ABDOMEN: No acute pathology. BONES: No suspicious lytic or blastic abnormality. CT/Chest without Contrast IMPRESSION: 1. Right middle lobe nodules essentially stable since previous examination. Further follow-up exam in one year is recommended. 2. No new change, adenopathy or pleural effusions Electronically Signed: Samy Mancuso MD at 8:41 EDT ,
== END | disposition home or self-care (01) ==
LOC: CT 07:44
PROVIDERS: PCP Nurse Practitioner Family; Referring Provider Internal Medicine Pulmonary Disease; Visit Provider Internal Medicine Pulmonary Disease
DX: R91.1 Solitary pulmonary nodule (principal); J44.9 Chronic obstructive pulmonary disease, unspecified
CPT/HCPCS: 71250

== ENCOUNTER → 2024-07-09 | Outpatient (CLI) | payer MEDICARE, OTHER, SELFPAY ==
[2024-07-08 08:56] VITALS: BMI 44.1
[2024-07-09 09:54] LABS: Anion Gap 7 (5-15); BUN 19 mg/dL (7-18); BUN/Creat Ratio 20.8 RATIO (10-20); Calcium,Total 9.2 mg/dL (8.5-10.1); Chloride 106 mmol/L (98-107); Creatinine, Serum 0.92 mg/dL (0.55-1.02); EST Glomerular Filtration Rate 63 mL/min (>60); Est Glom Filt Rate - Afr Amer 76 mL/min (>60); Glucose 265 mg/dL (74-106); Potassium 4.7 mmol/L (3.5-5.1); Sodium Level 140 mmol/L (136-145)
== END | disposition home or self-care (01) ==
LOC: LAB 08:36
PROVIDERS: PCP Nurse Practitioner Family; Referring Provider Nurse Practitioner Adult Health; Visit Provider Nurse Practitioner Adult Health
DX: I11.0 Hypertensive heart disease with heart failure (principal); I50.31 Acute diastolic (congestive) heart failure
CPT/HCPCS: 36415; 80048

== ENCOUNTER 2024-08-07 09:15 | Outpatient (RCR) | payer MEDICARE, OTHER, SELFPAY ==
[2024-07-08 08:56] VITALS: BMI 44.1
--- NOTE | 2024-08-08 07:14 | CR.ITP_ITS ---
Exercise - Initial Assessment Visit Session #:: 2 Physician Prescribed Exercise Modalities: SciFit Stepper and SciFit Pro-II Ergometer Nutrition - Initial Assessment Weight Mgt (Other Care) Height: 5 ft 1 in Weight:: 227 lb BMI: 42.9 Core - Initial Assessment Tobacco Use Years Smokin Psychosocial - Initial Assess Target Goals Target Goals Referral to Behavioral Health PS - Interventions: Yes: Attend Stress Management Classes Patient Health Questionnaire PHQ-9 Screening 30-Day Re-eval Assessment: 1. Little interest or pleasure in doing things: Not at all 2. Feeling down, depressed, or hopeless: Not at all 3. Trouble falling or staying asleep, or sleeping too much: Not at all 4. Feeling tired or having little energy: Not at all 5. Poor appetite or overeating: Not at all 6. Feeling bad about yourself -- or that you are a failure or have let yourself or your family down: Not at all 7. Trouble concentrating on things, such as reading the newspaper or watching television: Not at all 8. Moving or speaking so slowly that other people could have noticed. Or the opposite - being so fidgety or restless that you have been moving around a lot more than usual: Not at all 9. Thoughts that you would be better off , or of hurting yourself in some way: Not at all How difficult have these problems made it for you to do your work, take care of things at home, or get along with other people?: Not difficult at all Total Score: 0 Self-Efficacy 6-Item Scale 30-Day Re-eval Assessment: We would like to know how confident you are in doing certain activities. Please select your confidence level for: Fatigue Select Number: 7 Physical Discomfort or Pain Select Number: 7 Emotional Distress Select Number: 7 Other Symptoms or Health Problems Select Number: 7 Different Tasks and Activities Select Number: 7 Medication Select Number: 8 Total Score:: 7 Nutrition Survey Nutrition Survey Instructions Scoring Instructions Exercise - 30-day Assessment Visit Date of Eval: 08/08/24 Session #:: 2 (Pt put on med hold due to EKG.) Physician Prescribed Exercise Modalities: SciFit Stepper and SciFit Pro-II Ergometer Frequency: 3x/week for 12 weeks [36 sessions] Intensity: 60-80% of age predicted maximum heart rate reserve Duration: 30 - 45 minutes Current METSs:: 3 Target Heart Rate:: 83-104 Current RPE:: 13 Maximum Excercise HR:: 90 Resting Blood Pressure: 160/56 Maximum Exercise Blood Pressure: 142/60 EKG Type: SB to SR with freq vent bigeminy, trigeminy, vent couplets w/SOB. Outcomes & Goals Goals:: Verbalizes understanding of THR, RPE & goal METS by session 6, Documents in home exercise log/reports 30 min aerobic 5 day/wk by DC, Demonstrates accurate pulse taking by DC and Other additional outcome/goals: see below Intervention & Plan Exercise Program Goals: Instruct on personal THR & RPE, Instruct on MET level & personal MET goal, Show patient to take own pulse /validate performance until accurate, Instruct on home exercise and Other additional plan/int 30-day Reassessments 30 day Reassessments:: Progressing Reassessment Notes & Comments:: RPE explained. Pt is able to return demonstration. Physical Activity Home Exercise Physical Activity - Home Exercise: Safe Exercise, Warm-up, Self-monitoring, Cool-Down, Home Exercise > 30 min Daily and Sitting Time <3 hours/daily Outcomes & Goals Outcomes/Goals: Demonstrates correct Warm-up/exercise Cool-Down (S3) if = 2.5 METs, Verbalizes symptoms of exercise intolerance by Session 3 (S3), Demonstrate safe equipment use (S3) & follows exercise prescrition (6) and Other: See below Intervention & Plan Plan/Intervention: Instruct warm-up & cool-down if exercising at > 2 METs, Instruct on symptoms of exercise intolerance & actions to take, Instruct & monitor on saf, Assess intial functional capacity & safety risk and Other See below 30-day Reassessments 30 day Reassessments:: Progressing Reassessment Notes & Comments:: Slow warm up demonstrated. Pt is able to return demonstration. Exercise - 60-day Assessment Physician Prescribed Exercise Modalities: SciFit Stepper and SciFit Pro-II Ergometer Exercise - 90-day Assessment Physician Prescribed Exercise Modalities: SciFit Stepper and SciFit Pro-II Ergometer Exercise - Final/Discharge Physician Prescribed Exercise Modalities: SciFit Stepper and SciFit Pro-II Ergometer Nutrition - 30-Day Assessment Program Goals Nutrition Program Goals Patient has diagnosis of Hyperlipidemia (ICD E78)?: Yes Visit Date of Eval: 08/08/24 Session #:: 2 Cholesterol/Lipids (Other Core Measures) Determine presence & major risk factors that modify LDL goal: Hypertension or hypertensive medication, Low HDL cholesterol <40 mg/dL*, Family history of premature CHD in Male < 55 years: female <65 yearsFa and Age men > 45 years; women >/= 55 years Outcomes/Goals: Pt IDs own risk factors & lifestyle modifications by Session 10, Verbalizes symptoms of angina & response by session 3., Pt independently manages and Other Additional Outcomes/Goals: Intervention/Plan: Advocate for lipid panel cholesterol medication if applicable, Instruct on personal lipid levels & lipid goals/NCEP guidelines, Instruct on cholesterol and Other additional plan/int Referral to dietitian:: No (declines at this time.) 30-day Reassessments:: Progressing Reassessment Notes & Comments:: Risk factors and ways to minimize risk factors reviewed. Pt demonstrates understanding. Diabetes (Other Core Measures) Diabetes Type: Diagnosis Type II ICD-10 E11 Insulin dependent injection/pump?: Yes Non-Insulin Dependent?: No Do you monitor your blood sugar at home?: Yes Referral to Diabetic Clinic:: No (declines) 30-day Reassessments:: Progressing Reassessment Notes & Comments:: Encourage pt to attend diabetic clinic. Sugars in rehab have been 264 and 192 thus far. Weight Mgt (Other Care) Height: 5 ft 1 in Weight:: 227 lb BMI: 42.9 Diagnosis Overweight/Obesity BMI> 30% ICD-10 E66: Yes Diagnosis High BMI/Morbid Obesity BMI> 35% ICD-10 Z68: Yes Outcomes/Goals: Pt sets, maintains & shows weight loss goal & trend during rehab and Other additional outcomes/goals Intervention/Plan: Instruct on ideal BMI & set weight loss goal w/patient, Assist pt to ID & incorporate diet changes for weight loss by S9, Refer to Structured Weight Loss program as appropriate, Encourage goal of using 250- 300dcal per session for weight loss and Other additional plan/interventions 30 day Reassessments:: Progressing Reassessment Notes & Comments:: pt is to attend nutrition class. Encourage pt to keep a food log. Healthy Eating Habits Will attend diet classes:: Yes Outcomes/Goals:: Consume diet rich in vegs,fruits,whole grain/high fiber,fish,lean meat, Limit sat/trans fats,cholesterol & added salts & sugars and Other additional outcome/goals: Intervention/Plan:: Assess current eating habits and Other Additional plan/interventions 30-day Reassessments:: Progressing Reassessment Notes & Comments:: pt is to attend nutrition class. Encourage pt to keep a food log. Education Gave educational materials for:: Signs & symptoms of hypoglycemia, Signs & symptoms of hyperglycemia, Relate diabetes to coronary artery disease and Healthy eating Nutrition - 60-Day Assessment Weight Mgt (Other Care) Height: 5 ft 1 in Weight:: 227 lb BMI: 42.9 Core - 30-Day Assessment Visit Date of Eval: 08/08/24 Session #:: 2 Medication Compliance Preventative Medication(s):: Aspirin, REYMUNDO inhibitor, Statin/lipid and Beta tammy H/O mental health issues: depression, anxiety, or addiction?: No Doesn?t believe in the benefits of treatment?: No Believes medications are unnecessary or harmful?: No Has a concern about medication side effects?: No Expresses concern over the cost of medications?: No Outcomes/Goals: Verbalizes medications,desired effect & common side effects @ DC, Pt self-reports following medication regimen, Keeps card in wallet w/medications listed by DC and Other additional outcome/goals: Interventions/plans: Instruct on medication effects & side effects, Review medication list w/patient every two weeks, Instruct importance of taking meds as ordered & assist problem solving and Other additional 30-day Reassessments:: Progressing Reassessment Notes & Comments:: Pt encouraged to take meds as prescribed 100% of the time. Explained the importance to pt. Pt demonstrates understatnding. Tobacco Use Tobacco Use: Non-smoker How long ago did you quit using tobacco products?: Greater than or equal to 6 m onths ago Years Smokin 30-day Reassessments:: Met Reassessment Notes & Comments:: pt is a nonsmoker Hypertension Hypertension Diagnosis:: Hypertension ICD-10 I10 Resting Blood Pressure:: 160/56 [place] [employer] Hypertension Guidelines Peak Exercise Blood Pressure:: 142/60 Outcomes/Goals: Able to verbalize/achieve optimal blood pressure <130/80, Incorporates diet changes & exercise for blood pressure control by DC and Other additional outcomes/goals Interventions/plan: Instruct on optimal blood pressure, hypertension & medications, Instruct on effects of sodium, alcohol, stress, exercise &hypertension and Other additional plan/interventions 30 day Reassessments:: Progressing Reassessment Notes & Comments:: Pt encouraged to take meds as prescribed 100% of the time. Explained the importance to pt. Pt demonstrates understatnding. Low sodium diet encouraged as well. Tobacco Cessation Referral Smoking Cessation Referral:: No Individual Education/Counseling:: No Education Schedule Given:: Yes Psychosocial - 30-Day Assess VIsit Date of Eval: 08/08/24 Session #:: 2 History of previous Mental disease:: No Target Goals Target Goals Psychosocial Test Tool Used:: [employer] QOL Cardiac and PHQ-9 Questionnaire phq-9 Severity Referral to Behavioral Health PS - Interventions: Yes: Attend Stress Management Classes Outcomes/Goals: See list Psychosocial Outcomes/Goals:: ID's personal stressors & 2 strategies to manage stress by discharge and Other Additional outcome/goals: Intervention/Plan: See List Interventions/Plan:: Assess stressors,coping strategies & signs of derpression on admission, Instruct/assist pt to develop coping & personal stress Mgt strategies, Refer to Behavioral Health if appropriate, Refer to Physician if appropriate, Instruct patient to recognize signs & symptoms of depression, Instruct patient to recog and Other additional plan/intervention 30-day Reassessments: 30 day Reassessments:: Met Reassessment Notes & Comments:: Pt denies any psychosocial issues at this time. Psychosocial - 60-Day Assess Target Goals Target Goals Referral to Behavioral Health PS - Interventions: Yes: Attend Stress Management Classes Outcomes/Goals: See list Psychosocial Outcomes/Goals:: ID's personal stressors & 2 strategies to manage stress by discharge and Other Additional outcome/goals: Psychosocial - 90-Day Assess Target Goals Target Goals Referral to Behavioral Health PS - Interventions: Yes: Attend Stress Management Classes Psychosocial - Final Assessmen Target Goals Target Goals Referral to Behavioral Health PS - Interventions: Yes: Attend Stress Management Classes Nutrition - 90-Day Assessment Weight Mgt (Other Care) Height: 5 ft 1 in Weight:: 227 lb BMI: 42.9 Nutrition - Final Assessment Weight Mgt (Other Care) Height: 5 ft 1 in Weight:: 227 lb BMI: 42.9
[2024-08-08 07:29] VITALS: BP 160/56; BMI 42.9
== END 2024-08-31 23:59 ==
LOC: CR 09:15
PROVIDERS: PCP Nurse Practitioner Family; Referring Provider Nurse Practitioner Adult Health; Visit Provider Nurse Practitioner Adult Health
DX: I35.0 Nonrheumatic aortic (valve) stenosis (principal); Z95.2 Presence of prosthetic heart valve
CPT/HCPCS: 93798

== ENCOUNTER → 2024-08-14 | Outpatient (CLI) | payer MEDICARE, OTHER, SELFPAY ==
[2024-07-08 08:56] VITALS: BMI 44.1
[2024-08-08 07:29] VITALS: BMI 42.9
== END | disposition home or self-care (01) ==
LOC: CVS 13:55
PROVIDERS: PCP Nurse Practitioner Family; Referring Provider Internal Medicine Cardiovascular Disease; Visit Provider Internal Medicine Cardiovascular Disease
DX: R06.00 Dyspnea, unspecified (principal)
CPT/HCPCS: 93308; Q9957; A4216; C8924

== ENCOUNTER → 2024-08-19 | Outpatient (CLI) | payer MEDICARE, OTHER, SELFPAY ==
[2024-08-08 07:29] VITALS: BMI 42.9
[2024-08-19 12:55] LABS: Absolute Lymphocyte Count 3.28 X10^3/uL (0.83-4.51); Absolute Neutrophil Count 5.1 X10^3/uL (2.0-7.7); Basophil# 0.08 X10^3/uL; Basophil% 0.9 % (0-1); Eosinophil# 0.17 X10^3/uL; Eosinophils% 1.8 % (0-5); Hematocrit 40.3 % (37-47); Hemoglobin 12.9 g/dL (12.0-15.0); Lymphocyte # 3.28 X10^3/ul (0.83-4.51); Lymphocyte % 35.2 % (19-41); Mean Corpuscular Hgb 31.2 pg (27.0-32.0); Mean Corpuscular Volume 97.3 fL (81-99); Mean Platelet Vol. 11.1 fl (6.2-12.0); Monocyte% 7.5 % (0-10); NRBC Flagged by Analyzer 0 % (0-5); Neutrophil # 5.05 X10^3/uL (2.7-7.7); Neutrophil % 54.3 % (47-70); Platelet Count 178 K/mm3 (150-450); RBC Distribution Width CV 12.4 % (11.6-14.6); RBC Distribution Width SD 44.6 fl (35.1-43.9); Red Blood Count 4.14 M/mm3 (4.2-5.4); White Blood Count 9.3 K/mm3 (4.4-11.0)
[2024-08-19 13:07] LABS: BNP,B-Type NATRIURETIC PEPTIDE 286.1 pg/mL (0-100)
[2024-08-19 13:25] LABS: Anion Gap 6 (5-15); BUN 25 mg/dL (7-18); BUN/Creat Ratio 29.5 RATIO (10-20); Calcium,Total 10.2 mg/dL (8.5-10.1); Chloride 108 mmol/L (98-107); Creatinine, Serum 0.85 mg/dL (0.55-1.02); EST Glomerular Filtration Rate 68 mL/min (>60); Est Glom Filt Rate - Afr Amer 83 mL/min (>60); Glucose 66 mg/dL (74-106); Magnesium 2.1 mg/dL (1.6-2.6); Potassium 4.1 mmol/L (3.5-5.1); Sodium Level 141 mmol/L (136-145); Thyroid Stim Hormone (TSH) 0.426 uIU/mL (0.358-3.740)
== END | disposition home or self-care (01) ==
LOC: LAB 11:49
PROVIDERS: PCP Nurse Practitioner Family; Referring Provider Physician Assistant Medical; Visit Provider Physician Assistant Medical
DX: I49.3 Ventricular premature depolarization (principal); R06.09 Other forms of dyspnea
CPT/HCPCS: 36415; 80048; 83735; 83880; 84443; 85025

== ENCOUNTER → 2024-08-26 | Outpatient (CLI) | payer MEDICARE, OTHER, SELFPAY ==
[2024-08-08 07:29] VITALS: BMI 42.9
== END | disposition home or self-care (01) ==
LOC: PSN 08:06
PROVIDERS: PCP Nurse Practitioner Family; Referring Provider Physician Assistant Medical; Visit Provider Physician Assistant Medical
DX: I49.3 Ventricular premature depolarization (principal); R06.09 Other forms of dyspnea
CPT/HCPCS: 93225; 93226

== ENCOUNTER 2024-09-23 09:15 | Outpatient (RCR) | payer MEDICARE, OTHER, SELFPAY ==
[2024-09-01 00:07] VITALS: BP 160/56
--- NOTE | 2024-09-06 08:41 | PCM.CR.ITP ---
Psychosocial - Initial Assess Target Goals Target Goals Nutrition Survey Nutrition Survey Instructions Scoring Instructions Exercise - 60-day Assessment Visit Date of Eval: 09/06/24 Session #:: 2 Comments:: Pt has attended 2 sessions. Pt is currently on medical hold. Psychosocial - 30-Day Assess Target Goals Target Goals Psychosocial - 60-Day Assess Target Goals Target Goals Psychosocial - 90-Day Assess Target Goals Target Goals Psychosocial - Final Assessmen Target Goals Target Goals
== END 2024-10-01 23:59 ==
LOC: CR 09:15
PROVIDERS: PCP Nurse Practitioner Family; Referring Provider Nurse Practitioner Adult Health; Visit Provider Nurse Practitioner Adult Health
DX: I35.0 Nonrheumatic aortic (valve) stenosis (principal); Z95.2 Presence of prosthetic heart valve
CPT/HCPCS: 93798

== ENCOUNTER 2024-10-04 06:09 | Outpatient (RCR) | payer MEDICARE, OTHER, SELFPAY ==
[2024-10-02 00:09] VITALS: BP 160/56
== END 2024-11-01 23:59 ==
LOC: CR 06:09
PROVIDERS: PCP Nurse Practitioner Family; Referring Provider Nurse Practitioner Adult Health; Visit Provider Nurse Practitioner Adult Health
DX: I35.0 Nonrheumatic aortic (valve) stenosis (principal); Z95.2 Presence of prosthetic heart valve

== ENCOUNTER → 2024-11-22 | Outpatient (CLI) | payer MEDICARE, OTHER, SELFPAY ==
[2024-11-22 11:44] LABS: Hematocrit 41.6 % (37-47); Hemoglobin 13.6 g/dL (12.0-15.0); Mean Corp Hgb Conc 32.7 g/dL (32-36); Mean Corpuscular Volume 97.9 fL (81-99); Mean Platelet Vol. 10.7 fl (6.2-12.0); Platelet Count 191 K/mm3 (150-450); RBC Distribution Width CV 12.8 % (11.6-14.6); RBC Distribution Width SD 45.3 fl (35.1-43.9); Red Blood Count 4.25 M/mm3 (4.2-5.4); White Blood Count 8.9 K/mm3 (4.4-11.0)
[2024-11-22 12:23] LABS: AST(SGOT) 16 U/L (15-37); Alanine Aminotransfer ALT/SGPT 18 U/L (13-56); Albumin, Serum 3.4 g/dL (3.2-5.0); Alkaline Phosphatase 72 U/L (45-117); Anion Gap 4 (5-15); BUN 25 mg/dL (7-18); BUN/Creat Ratio 23.4 RATIO (10-20); Calcium,Total 9.1 mg/dL (8.5-10.1); Chloride 110 mmol/L (98-107); Creatinine, Serum 1.07 mg/dL (0.55-1.02); EST Glomerular Filtration Rate 52 mL/min (>60); Est Glom Filt Rate - Afr Amer 63 mL/min (>60); Globulin 3.5 g/dL (2.2-4.2); Glucose 87 mg/dL (74-106); Potassium 4.2 mmol/L (3.5-5.1); Protein, Total 6.9 g/dL (6.4-8.2); Sodium Level 144 mmol/L (136-145)
== END | disposition home or self-care (01) ==
LOC: LAB 11:03
PROVIDERS: PCP Nurse Practitioner Family; Referring Provider Internal Medicine Cardiovascular Disease; Visit Provider Internal Medicine Cardiovascular Disease
DX: I35.0 Nonrheumatic aortic (valve) stenosis (principal); I49.3 Ventricular premature depolarization; E03.9 Hypothyroidism, unspecified
CPT/HCPCS: 36415; 80053; 83735; 84443; 85027

== ENCOUNTER → 2024-12-19 | Outpatient (CLI) | payer MEDICARE, OTHER, SELFPAY ==
--- NOTE | 2024-12-19 16:07 | STRESSREP ---
Stress Test Report Pharmacologic myocardial perfusion stress test. 84-year-old lady with a history of PVCs Resting EKG demonstrates sinus rhythm with a rate of 84 bpm and premature ventricular complexes. Resting blood pressure is 142/44 mmHg. 0.4 mg of regadenoson was infused per usual protocol followed by rapid intravenous saline flush injection. Continuous EKG monitoring was performed. The maximum heart rate was 103 bpm which was 74% of max impacted heart rate the maximum workload was 1 metabolic equivalent. At rest there were no ST or T wave changes noted to suggest ischemia and at peak infusion nonspecific ST changes were noted which did not meet the criteria for ischemia. No clinical angina is noted. The final blood pressure was 134/48 mmHg. Myocardial perfusion protocol. 14.4 mCi of technetium 99m sestamibi was injected at rest. 0.4 mg of regadenoson was infused per usual protocol. At peak infusion 43.9 mCi of technetium 99m sestamibi was injected stress images were obtained stress and rest images were reconstructed and compared in the short axis vertical long and horizontal long axis. Gated images were also obtained. Perfusion SPECT analysis: Review of the stress images demonstrate normal uptake of tracer noted in all areas of the myocardium. The resting images similar demonstrated normal uptake of tracer noted in all areas of the myocardium. No areas of reversibility are noted to suggest ischemia and no previous infarct is noted. Gated SPECT analysis: The gated ejection fraction is 77%. Conclusion: Normal pharmacologic myocardial perfusion stress test. Preserved ejection fraction.
== END | disposition home or self-care (01) ==
LOC: CVS 07:02
PROVIDERS: PCP Nurse Practitioner Family; Referring Provider Internal Medicine Cardiovascular Disease; Visit Provider Internal Medicine Cardiovascular Disease
DX: I49.3 Ventricular premature depolarization (principal); I25.10 Atherosclerotic heart disease of native coronary artery without angina pectoris
CPT/HCPCS: 78452; 93017; A9500; A4216; J2785

== ENCOUNTER → 2025-02-28 | Outpatient (CLI) | payer MEDICARE, OTHER, SELFPAY ==
--- NOTE | 2025-02-28 15:54 | RAD_ITS ---
PROCEDURE: CHEST PA AND LATERAL 02/28/2025 REASON FOR EXAM: R/O FVO/ABNORMAL LUNG SOUNDS TECHNIQUE: Frontal and lateral views of the chest. COMPARISON: 05/17/2023. FINDINGS: Hardware: Aortic valve prosthesis. Heart: Enlarged. Mediastinum: Atherosclerosis of the aorta. Lungs: Mild vascular indistinctness of the lung bases suggestive of mild edema. Bones: The bones are unremarkable. RAD/Chest PA and Lateral IMPRESSION: Probable mild edema in the setting of cardiomegaly. Reading Location: [place] [id number]
[2025-02-28 19:49] LABS: Absolute Lymphocyte Count 2.93 X10^3/uL (0.83-4.51); Absolute Neutrophil Count 8.2 X10^3/uL (2.0-7.7); Basophil# 0.06 X10^3/uL; Basophil% 0.5 % (0-1); Eosinophil# 0.14 X10^3/uL; Eosinophils% 1.2 % (0-5); Hematocrit 41.3 % (37-47); Hemoglobin 13.1 g/dL (12.0-15.0); Lymphocyte # 2.93 X10^3/ul (0.83-4.51); Lymphocyte % 24.1 % (19-41); Mean Corp Hgb Conc 31.7 g/dL (32-36); Mean Corpuscular Hgb 32.1 pg (27.0-32.0); Mean Corpuscular Volume 101.2 fL (81-99); Mean Platelet Vol. 11.3 fl (6.2-12.0); Monocyte# 0.77 X10^3/uL; Monocyte% 6.3 % (0-10); NRBC Flagged by Analyzer 0 % (0-5); Neutrophil % 67.6 % (47-70); Platelet Count 206 K/mm3 (150-450); RBC Distribution Width CV 12.4 % (11.6-14.6); RBC Distribution Width SD 45.8 fl (35.1-43.9); Red Blood Count 4.08 M/mm3 (4.2-5.4); White Blood Count 12.1 K/mm3 (4.4-11.0)
[2025-02-28 21:32] LABS: Anion Gap 15 (5-15); BUN 32 mg/dL (4-19); BUN/Creat Ratio 28.2 RATIO (10-20); Calcium,Total 9.8 mg/dL (7.6-11.0); Carbon Dioxide 25.7 mmol/L (21.0-32.0); Chloride 98 mmol/L (98-108); Creatinine, Serum 1.12 mg/dL (0.70-1.20); EST Glomerular Filtration Rate 49 (>60); Glucose 93 mg/dL (70-99); Potassium 4.4 mmol/L (3.3-5.1); Sodium Level 139 mmol/L (133-145)
[2025-03-01 01:14] LABS: Pro- Brain NATRIURETIC PEPTIDE 1090 pg/mL (<=1800)
== END | disposition home or self-care (01) ==
PROVIDERS: PCP Nurse Practitioner Family; Referring Provider Nurse Practitioner Family; Visit Provider Nurse Practitioner Family
DX: R09.89 Other specified symptoms and signs involving the circulatory and respiratory systems (principal); R60.0 Localized edema
CPT/HCPCS: 36415; 71046; 80048; 83880; 85025

== ENCOUNTER → 2025-03-07 | Outpatient (CLI) | payer MEDICARE, OTHER, SELFPAY ==
[2025-03-07 12:20] LABS: Absolute Lymphocyte Count 3.59 X10^3/uL (0.83-4.51); Absolute Neutrophil Count 7.5 X10^3/uL (2.0-7.7); Basophil# 0.09 X10^3/uL; Basophil% 0.7 % (0-1); Eosinophil# 0.32 X10^3/uL; Eosinophils% 2.6 % (0-5); Hematocrit 41.1 % (37-47); Hemoglobin 13.2 g/dL (12.0-15.0); Lymphocyte # 3.59 X10^3/ul (0.83-4.51); Lymphocyte % 28.7 % (19-41); Mean Corp Hgb Conc 32.1 g/dL (32-36); Mean Corpuscular Hgb 31.9 pg (27.0-32.0); Mean Corpuscular Volume 99.3 fL (81-99); Mean Platelet Vol. 10.3 fl (6.2-12.0); Monocyte# 0.89 X10^3/uL; Monocyte% 7.1 % (0-10); NRBC Flagged by Analyzer 0 % (0-5); Neutrophil # 7.54 X10^3/uL (2.7-7.7); Neutrophil % 60.4 % (47-70); Platelet Count 275 K/mm3 (150-450); RBC Distribution Width CV 12.2 % (11.6-14.6); Red Blood Count 4.14 M/mm3 (4.2-5.4); White Blood Count 12.5 K/mm3 (4.4-11.0)
[2025-03-07 13:08] LABS: Anion Gap 12 (5-15); BUN 38 mg/dL (4-19); BUN/Creat Ratio 35.5 RATIO (10-20); Calcium,Total 9.9 mg/dL (7.6-11.0); Carbon Dioxide 25.1 mmol/L (21.0-32.0); Chloride 103 mmol/L (98-108); Creatinine, Serum 1.08 mg/dL (0.70-1.20); EST Glomerular Filtration Rate 51 (>60); Glucose 46 mg/dL (70-99); Potassium 4.9 mmol/L (3.3-5.1); Pro- Brain NATRIURETIC PEPTIDE 1391 pg/mL (<=1800); Sodium Level 140 mmol/L (133-145)
== END | disposition home or self-care (01) ==
LOC: LAB 11:44
PROVIDERS: PCP Nurse Practitioner Family; Referring Provider Nurse Practitioner Gerontology; Visit Provider Nurse Practitioner Gerontology
DX: R06.09 Other forms of dyspnea (principal); R53.83 Other fatigue; R06.02 Shortness of breath
CPT/HCPCS: 36415; 80048; 83880; 84443; 85025

== ENCOUNTER → 2025-03-10 | Outpatient (CLI) | payer MEDICARE, OTHER, SELFPAY | END | disposition home or self-care (01) | LOC: PSN 07:26 | PROVIDERS: PCP Nurse Practitioner Family; Referring Provider Nurse Practitioner Gerontology; Visit Provider Nurse Practitioner Gerontology | DX: I49.3 Ventricular premature depolarization (principal) | CPT/HCPCS: 93225; 93226 ==